=== PATIENT | male | born 1970 | race Caucasian/White ===

== ENCOUNTER 2020-05-28 16:05 | Outpatient (REF) | payer OTHER, SELFPAY ==
[2020-05-28 18:31] LABS: Alanine Aminotransferase 21 U/L (0-40); Albumin Level 4.5 g/dL (3.5-5.0); Alkaline Phosphatase 93 U/L (39-117); Aspartate Amino Transferase 21 U/L (5-37); Bilirubin Direct 0.2 mg/dL (0.0-0.5); Bilirubin Total 0.4 mg/dL (0.0-1.0); Total Protein 7.3 g/dL (6.5-8.0)
== END 2020-05-28 16:06 | disposition home or self-care (01) ==
LOC: HO.LAB 16:05
PROVIDERS: PCP Internal Medicine; Visit Provider Nurse Practitioner
DX: K22.4 Dyskinesia of esophagus (principal); K22.70 Barrett's esophagus without dysplasia; K21.9 Gastro-esophageal reflux disease without esophagitis; K75.81 Nonalcoholic steatohepatitis (NASH)
CPT/HCPCS: 36415; 80076; 82105

== ENCOUNTER 2020-07-22 17:24 | Outpatient (REF) | payer OTHER, SELFPAY ==
--- NOTE | ~2020-07-22 | XR_ITS ---
EXAMINATION: XR LUMBOSACRAL SPINE CLINICAL INFORMATION: Low back pain. COMPARISON: None. TECHNIQUE: 3 views of the lumbosacral spine. FINDINGS: The vertebral bodies and posterior elements are normal. The disc spaces are preserved and the vertebral alignment is normal. The paraspinal soft tissues are normal. XR/XR lumbar spine 2-3V IMPRESSION: Unremarkable examination.
== END 2020-07-22 17:25 | disposition home or self-care (01) ==
LOC: HO.XRAY 17:24
PROVIDERS: PCP Internal Medicine; Visit Provider Physician Assistant
DX: M54.5 Low back pain (principal)
CPT/HCPCS: 72100

== ENCOUNTER → 2020-08-08 15:30 | Outpatient (BNV) | payer BC, OTHER, SELFPAY | PROVIDERS: PCP Internal Medicine; Visit Provider Internal Medicine Medical Oncology | DX: I82.402 Acute embolism and thrombosis of unspecified deep veins of left lower extremity (principal) | CPT/HCPCS: 99212; 99213; 99214 ==

== ENCOUNTER 2020-10-03 13:59 | Outpatient (REF) | payer OTHER, SELFPAY ==
[2020-10-03 14:30] LABS: Estimated Average Glucose 111 mg/dL; Hemoglobin A1c % 5.5 %
[2020-10-03 14:49] LABS: C Reactive Protein 0.32 mg/dL (< or = 0.50); Cholesterol 198 mg/dL; HDL Cholesterol 54 mg/dL; LDL Cholesterol Calculated 124 mg/dl; Triglycerides 103 mg/dL
[2020-10-03 15:13] LABS: Free T4 (Free Thyroxine) 0.93 ng/dL (0.71-1.85); Prostate Specific Antigen Scr 0.98 ng/mL (<0.05-4.0); Thyroid Stimulating Hormone 0.49 uIU/mL (0.32-4.0); Vitamin D 25-OH Total 18.4 ng/mL (>30)
[2020-10-03 15:21] LABS: Folate 7.3 ng/mL (> or = 4.0); Vitamin B12 391 pg/mL (200-900)
[2020-10-06 13:02] LABS: Insulin Level Total 8.4 uIU/mL
== END 2020-10-03 14:00 | disposition home or self-care (01) ==
LOC: HO.LAB 13:59
PROVIDERS: PCP Internal Medicine; Visit Provider Internal Medicine
DX: Z12.5 Encounter for screening for malignant neoplasm of prostate (principal); K22.70 Barrett's esophagus without dysplasia; G47.33 Obstructive sleep apnea (adult) (pediatric); R45.86 Emotional lability; E78.00 Pure hypercholesterolemia, unspecified; K75.81 Nonalcoholic steatohepatitis (NASH)
CPT/HCPCS: 36415; 80061; 82306; 82607; 82746; 83036; 83525; 84153; 84439; 84443; 86140

== ENCOUNTER 2020-10-07 14:00 | Outpatient (RCR) | payer OTHER, SELFPAY ==
--- NOTE | 2020-09-04 09:18 | MHC.PT.EP ---
[facility] [place] Office [place] Office [place] Office [address] Jennifer Pillai [address] [phone] F: [phone] F: [phone] F: [phone] F: [phone] Physical Therapy Plan of Care Date of Evaluation: Date of Surgery: Diagnosis: Unspecified thoracic pain. 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 Pt is deemed an appropriate candidate to receive skilled PT services to address his physical impairments in order to improve his tolerance for restful sleep. Frequency and Duration: The patient will be seen 1 x / wk x 6 wks. Short Term Goals: Initiate HEP [facility]dc Goals: I with HEP. Pt will be I with office ergonomics for sitting at desk long periods. Pt will report sleep no longer affected by back pain. Treatment Plan: Modalities to reduce pain, spasms and effusion. Manual therapy to restore motion and function. Therapeutic exercise to improve strength and flexibility. Neuromuscular re-education for posture and balance. Therapeutic activities to return to functional activities of daily living. Electronically signed by: Oleg Phillips PT. Please sign and return to therapist. Thank you for your referral.
--- NOTE | 2021-02-09 08:35 | MHC.PT.OD ---
[facility] [place] Office [place] Office [place] Office [address] Iesha Pillai [address] [phone] F: [phone] F: [phone] F: [phone] F: [phone] Physical Therapy Daily Note Diagnosis: Unspecified thoracic pain. Date of Surgery: Date of Evaluation: 08/29/20 Date of Treatment: 10/07/20 Treatments to Date: 2 Cancellations to Date: No Shows to Date: Authorized Visits: Insurance End Date: Precautions/ Contraindications: Subjective: Pt reports he is now on gabapentin for his restless leg, reports 2-4 hrs of sleep, trialed HEP though a little and inconsistently. Reports his pain is the same 1-2/10 which is constant and does not affect him when preaooupied. Pain Score and Location: 2 Objective Flowsheet: Tests & Measures Exercises LTRs x 15 ea. (NOT TODAY) Open books 15 ea. (NOT TODAY) Office ergonomics H.O. issued and discussed. 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 (reviewed) Cat/ camel in quadruped x 15 reps. Ileana pose 3 ways x 10 sec ea x 5 reps.ea. SH rows/ extensions/ B ER x 10 x 3 ea. Blue. Seated T spine executive stretch x 15 reps x 3 sec ea. Prone alt hip extensions x 10 x 3. T 5-L1 P-A mobs G III-IV (hypo moble segments noted T 6-8). STM and TrP for B longissimus, B QLs, serratus posterior. MFR for B longissimus and spinal fascia. Modalities Assessment: Amadou trialed a couple of visits for his issue and terminated his program d/t lack of improvement; From last attended: Pt performed all exercises without pain. Pt reports high co-pay and inability to determine if PT will resolve his issue limit him from committing to PT. Reports limited time for HEP and is uncertain he will comply and hasn't tried his initial posture changes or exercises; Pt ed on PT recommendation and agreed to trial 3 visits 2 weeks apart save for 1 visit NW. PT Plan: L/ T spine mobility ergonomics. monitor constant pain Sx for flag Sx. insomnia. lumbar stab. 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 Pt will be I with office ergonomics for sitting at desk long periods. Pt will report sleep no longer affected by back pain. Electronically signed by:
== END 2021-06-17 09:51 | disposition home or self-care (01) ==
LOC: HO.PTCHIC 14:00
PROVIDERS: PCP Internal Medicine; Visit Provider Physician Assistant
DX: M51.9 Unspecified thoracic, thoracolumbar and lumbosacral intervertebral disc disorder (principal); M54.5 Low back pain
CPT/HCPCS: 97110; 97140; 97161

== ENCOUNTER → 2020-12-01 14:04 | Outpatient (BNVA) | payer OTHER, SELFPAY | PROVIDERS: PCP Internal Medicine; Referring Provider Internal Medicine; Visit Provider Nurse Practitioner | DX: K21.9 Gastro-esophageal reflux disease without esophagitis (principal); K22.4 Dyskinesia of esophagus; K75.81 Nonalcoholic steatohepatitis (NASH); K22.70 Barrett's esophagus without dysplasia | CPT/HCPCS: 99212 ==

== ENCOUNTER 2020-12-08 13:21 | Outpatient (REF) | payer OTHER, SELFPAY ==
--- NOTE | ~2020-12-08 | US_ITS ---
EXAMINATION: US ABDOMEN LIMITED CLINICAL INFORMATION: Nonalcoholic steatohepatitis (WEINSTEIN). COMPARISON: Abdomen ultrasound 11/13/2019 TECHNIQUE: Real-time imaging of the right upper quadrant abdominal viscera. FINDINGS: PANCREAS: The head and body appear unremarkable. The tail is obscured by overlying bowel gas. LIVER: The liver is normal in size. The liver contour is normal. There is diffusely increased echogenicity present consistent with fatty infiltration. No focal hepatic lesion. There is no intrahepatic biliary duct dilatation seen. GALLBLADDER: Normal. The gallbladder is physiologically distended without evidence of stones, sludge, polyps, wall thickening or pericholecystic fluid. COMMON BILE DUCT: Normal in caliber measuring 0.3 cm in diameter. RIGHT KIDNEY: Normal. No hydronephrosis. No renal calculi or focal parenchymal lesions. The kidney measures 11.9 cm in maximum dimension. FREE FLUID: None. US/US abdomen limited IMPRESSION: Diffusely increased echogenicity of the liver without focal mass. Findings consistent with fatty infiltration.
[2020-12-08 15:11] LABS: Alanine Aminotransferase 14 U/L (0-40); Albumin Level 4.4 g/dL (3.5-5.0); Alkaline Phosphatase 94 U/L (39-117); Aspartate Amino Transferase 18 U/L (5-37); Bilirubin Direct 0.2 mg/dL (0.0-0.5); Bilirubin Total 0.4 mg/dL (0.0-1.0); Total Protein 7.1 g/dL (6.5-8.0)
[2020-12-09 10:26] LABS: Alpha Fetoprotein 2.3 ng/mL (<6.1)
== END 2020-12-08 13:22 | disposition home or self-care (01) ==
LOC: HO.US 13:21
PROVIDERS: PCP Internal Medicine; Visit Provider Nurse Practitioner
DX: K75.81 Nonalcoholic steatohepatitis (NASH) (principal)
CPT/HCPCS: 36415; 76705; 80076; 82105

== ENCOUNTER 2021-01-06 06:42 | Day surgery (SDC) | payer OTHER, SELFPAY ==
[2020-12-31 10:16] VITALS: BMI 34.5
--- NOTE | 2021-01-05 12:15 | HO.ANESPROP2 ---
Documented by User: Linette Redd NP 01/05/21 12:17 HPI - Anesthesia Eval Consult details Narrative: 50yo M for Upper Endoscopy and Colonoscopy Xarelto for DVT PMFSH Active Problems Active Problems: All Active Problems (Updated 12/31/20 @ 09:59 by Olamide Mccormack, RN) Mood changes (Acute) Pate's esophagus determined by biopsy (Acute) Esophageal spasm (Acute) WEINSTEIN (nonalcoholic steatohepatitis) (Acute) Lumbar spine pain (Acute) Left leg DVT (Acute) Impaired glucose tolerance (Acute) Hypercholesterolemia (Acute) Generalized anxiety disorder (Acute) Marijuana use (Acute) Obesity (BMI 30-39.9) (Acute) Insomnia (Acute) GERD (gastroesophageal reflux disease) (Acute) Obstructive sleep apnea (Acute) Past Medical History Medical History DVT (deep venous thrombosis) Erectile dysfunction Generalized anxiety disorder GERD (gastroesophageal reflux disease) Hypercholesterolemia Hypogonadism Impaired glucose tolerance Insomnia Marijuana use Obesity (BMI 30-39.9) Obstructive sleep apnea Peptic ulcer disease Restless leg syndrome Family History Family History Father Heart attack Diabetes Mother Thyroid condition Surgical History Surgical History Hx of endoscopy Social History Social History Household Members: Spouse Alcohol intake: current Alcohol intake frequency: holidays/special occasions only Patient Tobacco Use Status: Former Tobacco user Second Hand Smoke Exposure: No Use of substances other than those prescribed or required for medical reasons: Yes Substance Use Type: Marijuana Advance Directives Information Provided: Yes (informational brochure mailed) Advance Directives on File: No Meds Allergies Allergy/AdvReac Type Severity Reaction Status Date / Time Penicillins [PENICILLINS] Allergy Intermediate HIVES Verified 01/06/21 06:55 Home Medications Medication Instructions Recorded Confirmed Last Taken Type bupropion HCl 300 mg 24 hr tablet, 300 mg PO BEDTIME 05/28/20 08/08/20 Unknown History extended release bupropion HCl 300 mg 24 hr tablet, 1 tab PO QAM 08/08/20 08/08/20 Unknown History extended release (Wellbutrin XL) sertraline 100 mg tablet (Zoloft) mg PO 08/08/20 08/08/20 Unknown History sertraline 25 mg tablet 25 mg PO DAILY 08/08/20 08/08/20 Unknown History ergocalciferol (vitamin D2) 1,250 1,250 mcg PO QWEEK 12/01/20 Unknown History mcg (50,000 unit) capsule Exam Exam Date and Time: January 05, 2021 1215 Height,Weight and Vital Signs: Height 5 ft 10 in Weight 109.316 kg Pertinent Lab Results Pertinent Lab Results: Laboratory Tests 08/08/20 08/08/20 15:47 15:47 WBC 7.6 Hgb 14.2 Hct 43.3 Plt Count 222 Sodium 139 Potassium 4.6 Chloride 105 Carbon Dioxide 29 BUN 15 Creatinine 0.90 Assessment and Plan Assessment Anesthesia Assessment: Chart Reviewed Documented by User: Jabier Hansen MD 01/06/21 09:18 [facility] Past Medical History Medical History DVT (deep venous thrombosis) Erectile dysfunction Generalized anxiety disorder GERD (gastroesophageal reflux disease) Hypercholesterolemia Hypogonadism Impaired glucose tolerance Insomnia Marijuana use Obesity (BMI 30-39.9) Obstructive sleep apnea Peptic ulcer disease Restless leg syndrome Family History Family History Father Heart attack Diabetes Mother Thyroid condition Family history of problems with anesthesia: No Surgical History Surgical History Hx of endoscopy History of Problems with Anesthesia: No Social History Social History Household Members: Spouse Alcohol intake: current Alcohol intake frequency: holidays/special occasions only Patient Tobacco Use Status: Former Tobacco user Second Hand Smoke Exposure: No Use of substances other than those prescribed or required for medical reasons: Yes Substance Use Type: Marijuana Advance Directives Information Provided: Yes (informational brochure mailed) Advance Directives on File: No Meds Allergies Allergy/AdvReac Type Severity Reaction Status Date / Time Penicillins [PENICILLINS] Allergy Intermediate HIVES Verified 01/06/21 06:55 Home Medications Medication Instructions Recorded Confirmed Last Taken Type bupropion HCl 300 mg 24 hr tablet, 300 mg PO BEDTIME 05/28/20 08/08/20 Unknown History extended release bupropion HCl 300 mg 24 hr tablet, 1 tab PO QAM 08/08/20 08/08/20 Unknown History extended release (Wellbutrin XL) sertraline 100 mg tablet (Zoloft) mg PO 08/08/20 08/08/20 Unknown History sertraline 25 mg tablet 25 mg PO DAILY 08/08/20 08/08/20 Unknown History ergocalciferol (vitamin D2) 1,250 1,250 mcg PO QWEEK 12/01/20 Unknown History mcg (50,000 unit) capsule Exam Airway Mallampati Class: III TM Dist: >3cm Neck ROM: Full Loose/Missing/Broken Teeth: No Assessment and Plan Assessment Anesthesia Assessment: Anesthesia Plan Discussed Final Anesthetic Review Family History of Problems with Anesthesia: No History of Problems with Anesthesia: No NPO: Yes ASA Class: III Final Preanesthetic Review: No Changes in Pt Med Stat, Meds/Allgs Chart Reviewed, Consent Obtained/Reviewed and Anes Risks/Benef Reviewed Patient Risk: Intermediate Procedure Risk: Low Anesthetic Plan Anesthetic Plan: MAC: Disposition: Standard PACU
[2021-01-06 07:19] VITALS: BP 126/74; PULSE 48; RESP 20; TEMP 36.4; O2SAT 97
[2021-01-06] MEDS: Lactated Ringers 1,000 ML 100 ML IVCONT (07:22)
--- NOTE | 2021-01-06 07:35 | P.HPSUR_ITS ---
Pre-Procedural Eval Section A Date of Service: 01/06/21 The patient is an INPATIENT: No The History & Physical has been completed within 30 days and I have reviewed it.: No Section B Chief Complaint: Screening, WEINSTEIN Details of Present Illness: Colon cancer screening, Pate's esophagus Relevant Family History (Specify if Yes): No Relevant Social History: Tobacco Use (past smoker) Present Medications: see Short Stay Collaborative assessment Medical History: Significant History (Erectile dysfunction Generalized anxiety disorder GERD (gastroesophageal reflux disease) Hypercholesterolemia Hypogonadism Impaired glucose tolerance Insomnia Marijuana use Obesity (BMI 30- 39.9) Obstructive sleep apnea Peptic ulcer disease Restless leg syndrome) History of Previous Operations: Relevant previous surgery/procedure and date(s) (History of endoscopy) Allergies: Allergies Allergy/AdvReac Type Severity Reaction Status Date / Time Penicillins [PENICILLINS] Allergy Intermediate HIVES Verified 01/06/21 06:55 Review of Systems Sugical H&P ROS: Negative: Constitution, Cardiovascular, Respiratory and Gastrointestinal Exam Surgical H&P Exam: Normal: Heart, Normal: Lungs, Normal: Extremities and Normal: Abdomen Plan Diagnosis/Plan: Unchanged I have reviewed the history and physical and performed a pertinent physical examination on my patient. No changes have occurred unless specified.
--- NOTE | 2021-01-06 07:36 | P.BOP_ITS ---
Brief Operative Note Date of Service: 01/06/21 Pre-op diagnosis: Colon cancer screening, FU of Guzman's, GERD Post-op diagnosis: other (GERD, Guzman's esophagus, gastric polyps, colon polyps, diverticulosis, hemorrhoids) Procedure: FLEXIBLE TRANSORAL UPPER GASTROINTESTINAL ENDOSCOPY WITH BIOPSIES AND COLONOSCOPY TILL CECUM WITH BIOPSIES AND SNARE POLYPECTOMY UPPER ENDOSCOPY Consent: Indications for the procedure and potential complications of bleeding, perforation, reaction to medications and missed diagnosis were discussed with the patient and informed consent was obtained. Instrument: Olympus GIF H 190 mid size upper endoscope Monitoring: Vital signs and clinical assessment, continuous EKG monitoring, Pulse oximetry, Carbon Dioxide monitoring and blood pressure monitoring were done throughout the procedure. Procedure: The patient was placed in the left lateral decubitis position and pre-procedure medications were administered and a bite block was placed. The endoscope was inserted into the mouth and advanced under direct vision to the third part of duodenum. A careful inspection was made as the upper endoscope was withdrawn including a retroflexed examination of the proximal stomach; Findings and interventions are described below. Findings: Larynx: Normal Esophagus: GE junction at 40 cms. Two 1 cms tongues of Guzman's as noted on previous EGD - biopsies were obtained. No esophagitis. Stomach: A few 5-10 mm benign appearing polyps in the gastric fundus and body - biopsied. Mild gastric erythema - biopsies were obtained. Grade 2 flap valve on retroflexed examination of the cardia. Duodenum: Normal bulb and descending duodenum Intervention: Biopsies as noted above COLONOSCOPY PROCEDURE NOTE Consent: Indications for the procedure and potential complications of bleeding, perforation, reaction to medications and missed diagnosis were discussed with the patient and informed consent was obtained. Instrument: Olympus PCF H 190 L variable stiffness pediatric colonoscope Monitoring: Vital signs and clinical assessment, intermittent blood pressure monitoring, continuous EKG monitoring, Pulse oximetry and Carbon Dioxide monitoring were done throughout the procedure. Colon withdrawl time was 21 minutes. Procedure: The patient was placed in the left lateral decubitis position and pre-procedure medications were administered. After a digital rectal examination of the ano-rectum, the video colonoscope was inserted into the rectum and advanced through the colon to the cecum. The colonoscope was slowly withdrawn in a retrograde panoramic fashion and the colon mucosa was carefully examined including a retroflexed view of the rectum. Findings and interventions are described below. Procedure Difficulty: : Without difficulty Findings: Terminal Ileum: Not evaluated Cecum: Normal Ascending Colon: A 6-7 mm sessile polyp removed with a cold bx. Two 8-10 mm sessile polyps removed with a cold snare. Transverse Colon: Normal Descending Colon: Moderate diverticulosis Sigmoid Colon: Moderate diverticulosis Rectum: Normal Ano-rectum: Moderate internal hemorrhoids Colon preparation: Good Impression and Post Procedure Diagnosis: Endoscopy Findings: ESOPHAGUS: GE junction at 40 cms. Two 1 cms tongues of Guzman's as noted on previous EGD - biopsies were obtained. STOMACH: A few 5-10 mm benign appearing polyps in the gastric fundus and body - biopsied. Mild gastric erythema - biopsies were obtained. Colonoscopy Findings: Three small to medium sized polyps removed Moderate diverticulosis seen in the left colon Moderate hemorrhoids on retroflexed exam. Plan: Await pathology results Patient has an appointment on 01/19/21 in the GI Clinic with Audrey Anguiano NP . Repeat Colonoscopy interval based on path results - in 3 years if polyps are a denomatous and 10 years if polyps are hyperplastic. Repeat EGD in 3 -4 yrs if no dysplasia on esophageal biopsies Above findings were reviewed with the patient and colon polyps and diverticulosis handouts were given in the discharge area Surgeon: Rl Hernandez MD Anesthesia: MAC (Carlota Palma CRNA) Was an Supervisor [employer] used for this Procedure?: No Estimated blood loss (mL): 0 Pathology: other ( A. GASTRIC POLYPS B. DISTAL ESOPHAGUS BX'S F/U TO GUZMAN'S C. ASCENDING COLON POLYPS) Condition: stable Disposition: PACU
--- NOTE | 2021-01-06 07:57 | W.PM.OPN ---
Operative Note Operative Note Date of Service: 01/06/21 Narrative: Pre-op diagnosis:?Colon cancer screening, FU of Guzman's, GERD Post-op diagnosis:?other (GERD, Guzman's esophagus, gastric polyps, colon polyps, diverticulosis, hemorrhoids) Procedure:? FLEXIBLE TRANSORAL UPPER GASTROINTESTINAL ENDOSCOPY WITH BIOPSIES AND COLONOSCOPY TILL CECUM WITH BIOPSIES AND SNARE POLYPECTOMY UPPER ENDOSCOPY Consent:?Indications for the procedure and potential complications of bleeding, perforation, reaction to medications and missed diagnosis were discussed with the patient and informed consent was obtained. Instrument:?Olympus GIF H 190 mid size upper endoscope Monitoring: Vital signs and clinical assessment, continuous EKG monitoring, Pulse oximetry, Carbon Dioxide monitoring and blood pressure monitoring were done throughout the procedure. Procedure:?The patient was placed in the left lateral decubitis position and pre-procedure medications were administered and a bite block was placed. The endoscope was inserted into the mouth and advanced under direct vision to the third part of duodenum. A careful inspection was made as the upper endoscope was withdrawn including a retroflexed examination of the proximal stomach; Findings and interventions are described below. Findings: Larynx:? Normal Esophagus:?GE junction at 40 cms.? Two 1 cms tongues of Guzman's as noted on previous EGD - biopsies were obtained. ? No esophagitis. Stomach:?A few 5-10 mm benign appearing polyps in the gastric fundus and body - biopsied. Mild gastric erythema - biopsies were obtained. Grade 2 flap valve on retroflexed examination of the cardia. Duodenum:?Normal bulb and descending duodenum Intervention:?Biopsies as noted above COLONOSCOPY PROCEDURE NOTE Consent:?Indications for the procedure and potential complications of bleeding, perforation, reaction to medications and missed diagnosis were discussed with the patient and informed consent was obtained. Instrument:?Olympus PCF H 190 L variable stiffness pediatric colonoscope Monitoring:?Vital signs and clinical assessment, intermittent blood pressure monitoring, continuous EKG monitoring, Pulse oximetry and Carbon Dioxide monitoring were done throughout the procedure. Colon withdrawl time was 21 minutes. Procedure:?The patient was placed in the left lateral decubitis position and pre-procedure medications were administered. After a digital rectal examination of the ano-rectum, the video colonoscope was inserted into the rectum and advanced through the colon to the cecum. The colonoscope was slowly withdrawn in a retrograde panoramic fashion and the colon mucosa was carefully examined including a retroflexed view of the rectum. Findings and interventions are described below. Procedure Difficulty:?: Without difficulty Findings: Terminal Ileum: Not evaluated Cecum:? Normal Ascending Colon:??A 6-7 mm sessile polyp removed with a cold bx.? Two 8-10 mm sessile polyps removed with a cold snare. Transverse Colon:??Normal Descending Colon:? Moderate diverticulosis Sigmoid Colon:??Moderate diverticulosis Rectum:??Normal Ano-rectum:??Moderate internal hemorrhoids Colon preparation:? Good? Impression and Post Procedure Diagnosis: Endoscopy Findings: ESOPHAGUS:? GE junction at 40 cms.? Two 1 cms tongues of Guzman's as noted on previous EGD - biopsies were obtained. STOMACH: A few 5-10 mm benign appearing polyps in the gastric fundus and body - biopsied. Mild gastric erythema - biopsies were obtained. Colonoscopy Findings: Three small to medium sized polyps removed Moderate diverticulosis seen in the left colon Moderate hemorrhoids on retroflexed exam. Plan: Await pathology results Patient has an appointment on 01/19/21 in the GI Clinic with? Audrey Anguiano NP? . Repeat Colonoscopy interval based on path results - in 3 years if polyps are adenomatous and 10 years if polyps are hyperplastic. Repeat EGD in 3 -4 yrs if no dysplasia on esophageal biopsies Above findings were reviewed with the patient and colon polyps and diverticulosis handouts were given in the discharge area Surgeon:?Rl Hernandez MD Anesthesia:?MAC (Carlota Palma CRNA) Was an Liquor Runner used for this Procedure?:?No Estimated blood loss (mL):?0 Pathology:?other ( A. GASTRIC POLYPS? B. DISTAL ESOPHAGUS BX'S F/U TO GUZMAN'S? C. ASCENDING COLON POLYPS) Condition:?stable Disposition:?PACU
[2021-01-06 08:50] VITALS: BP 135/79; PULSE 86; RESP 16; TEMP 36.8; O2SAT 97
[2021-01-06 09:05] VITALS: BP 137/79; PULSE 86; RESP 18; TEMP 36.8; O2SAT 99
== END 2021-01-06 09:32 | disposition home or self-care (01) ==
PROVIDERS: PCP Internal Medicine; Visit Provider Internal Medicine Gastroenterology
PROC: (CPT 45385; principal; 2021-01-06 07:30)
DX: Z12.11 Encounter for screening for malignant neoplasm of colon (principal); D12.2 Benign neoplasm of ascending colon; K57.30 Diverticulosis of large intestine without perforation or abscess without bleeding; K64.8 Other hemorrhoids; K21.9 Gastro-esophageal reflux disease without esophagitis; K22.4 Dyskinesia of esophagus; K22.70 Barrett's esophagus without dysplasia; K75.81 Nonalcoholic steatohepatitis (NASH); K31.7 Polyp of stomach and duodenum; R73.02 Impaired glucose tolerance (oral); G47.33 Obstructive sleep apnea (adult) (pediatric); Z79.899 Other long term (current) drug therapy; Z88.0 Allergy status to penicillin; F12.90 Cannabis use, unspecified, uncomplicated; Z87.891 Personal history of nicotine dependence
CPT/HCPCS: 45385; 45380; 43239; 88305; 88342; J3010

== ENCOUNTER 2021-03-12 13:13 | Outpatient (REF) | payer OTHER, SELFPAY ==
--- NOTE | ~2021-03-12 | US_ITS ---
EXAMINATION: US VENOUS ULTRASOUND WITH DOPPLER LOWER EXTREMITY, BILATERAL CLINICAL INFORMATION: Follow-up left leg DVT COMPARISON: Previous exams most recent May 2019 TECHNIQUE: Ultrasound of the deep veins is performed from the hip to the calf with compression sonography and color and pulse Doppler assessment. Spectral analysis with color-flow imaging is performed. FINDINGS: RIGHT: There is normal venous compression and respiratory variation and augmented flow. The visualized common femoral vein, superficial femoral vein, profunda femoral vein, popliteal vein, and the trifurcation region shows no evidence of deep venous thrombosis. There is no significant popliteal fossa cyst. There is right groin lymph node. LEFT: There left common femoral, proximal and mid superficial femoral vein are patent. There is hypoechoic material seen against the wall of the left distal superficial femoral and popliteal veins suggestive of changes from old DVT. This is similar to recent exam May 2019. The left posterior tibial and peroneal veins are patent. There is no Plascencia's cyst. There is a small left groin lymph node. US/US venous duplex LE BI IMPRESSION: No DVT demonstrated in the right lower extremity. Probable chronic changes of DVT seen in the distal left superficial femoral and popliteal veins similar to May 2019. No evidence of acute left leg DVT.
== END 2021-03-12 13:14 | disposition home or self-care (01) ==
LOC: HO.HMGCX 13:13
PROVIDERS: Visit Provider Internal Medicine Medical Oncology
DX: I82.409 Acute embolism and thrombosis of unspecified deep veins of unspecified lower extremity (principal)
CPT/HCPCS: 93970

== ENCOUNTER 2021-03-24 12:46 | Outpatient (REF) | payer OTHER, SELFPAY ==
[2021-03-24 14:14] LABS: Estimated Average Glucose 117 mg/dL; Hemoglobin A1c % 5.7 %
[2021-03-24 14:23] LABS: Cholesterol 207 mg/dL; HDL Cholesterol 51 mg/dL; LDL Cholesterol Calculated 140 mg/dl; Triglycerides 84 mg/dL
== END 2021-03-24 12:47 | disposition home or self-care (01) ==
LOC: HO.HMGCLDS 12:46
PROVIDERS: PCP Internal Medicine; Visit Provider Nurse Practitioner Family
DX: Z00.00 Encounter for general adult medical examination without abnormal findings (principal); R73.02 Impaired glucose tolerance (oral)
CPT/HCPCS: 36415; 80061; 83036

== ENCOUNTER 2021-04-02 14:26 | Outpatient (REF) | payer OTHER, SELFPAY ==
[2021-04-02 16:47] LABS: Anion Gap 10 (12-20); Blood Urea Nitrogen 16 mg/dL (9-16); Calcium 9.1 mg/dL (8.4-10.2); Carbon Dioxide 32 mmol/L (22-29); Chloride 100 mmol/L (96-108); Estimated Glomerular Filt Rate > 60; Glucose Random 89 mg/dL (60-115); Potassium 4.3 mmol/L (3.3-5.1); Sodium 138 mmol/L (135-145)
== END 2021-04-02 14:27 | disposition home or self-care (01) ==
LOC: HO.HMGCLDS 14:26
PROVIDERS: Visit Provider Internal Medicine
DX: K22.70 Barrett's esophagus without dysplasia (principal)
CPT/HCPCS: 36415; 80048

== ENCOUNTER → 2021-06-04 12:07 | Outpatient (BNVA) | payer OTHER, SELFPAY | PROVIDERS: PCP Internal Medicine; Referring Provider Internal Medicine; Visit Provider Internal Medicine Gastroenterology | DX: K22.70 Barrett's esophagus without dysplasia (principal); K75.81 Nonalcoholic steatohepatitis (NASH); K21.9 Gastro-esophageal reflux disease without esophagitis; E66.9 Obesity, unspecified; D12.6 Benign neoplasm of colon, unspecified; Z68.34 Body mass index [BMI] 34.0-34.9, adult; Z79.899 Other long term (current) drug therapy | CPT/HCPCS: 99212 ==

== ENCOUNTER 2021-07-01 19:06 | Outpatient (REF) | payer OTHER, SELFPAY | END 2021-07-01 19:07 | disposition home or self-care (01) | LOC: HO.LNP 19:06 | PROVIDERS: Visit Provider Nurse Practitioner Family | DX: Z13.9 Encounter for screening, unspecified (principal) | CPT/HCPCS: 87086 ==

== ENCOUNTER 2021-07-06 13:54 | Outpatient (REF) | payer OTHER, SELFPAY ==
[2021-07-06 16:49] LABS: Anion Gap 10 (12-20); Blood Urea Nitrogen 19 mg/dL (9-16); Carbon Dioxide 27 mmol/L (22-29); Chloride 102 mmol/L (96-108); Estimated Glomerular Filt Rate > 60; Glucose Random 102 mg/dL (60-115); Potassium 4.6 mmol/L (3.3-5.1); Sodium 134 mmol/L (135-145)
== END 2021-07-06 13:55 | disposition home or self-care (01) ==
LOC: HO.HMGCLDS 13:54
PROVIDERS: PCP Internal Medicine; Visit Provider Nurse Practitioner Family
DX: R82.998 Other abnormal findings in urine (principal)
CPT/HCPCS: 36415; 80048

== ENCOUNTER 2021-10-30 14:29 | Outpatient (REF) | payer OTHER, SELFPAY ==
[2021-10-30 16:41] LABS: Appearance Urine Clear; Color Urine Yellow; Glucose Urine UA Negative (Negative); Leukocyte Esterase Urine Trace (Negative); Nitrite Urine Negative (Negative); PH 5.5 (5.0-9.0); UMIC TRIGGER UA YES; Urine Blood Negative (Negative); Urine Ketones Negative (Negative); Urine Protein Negative (Neg-Trace)
[2021-10-30 16:46] LABS: Bacteria Urine None Seen (None Seen); Hyaline Casts Urine 0-2 /LPF (0-2); RBC Urine 0-2 /HPF (0-2); Squamous Epithelial Cell Urine 0-2 /HPF (0-2); WBC Urine 0-5 /HPF (0-5)
[2021-10-30 16:48] LABS: Alanine Aminotransferase 22 U/L (0-40); Albumin Level 4.2 g/dL (3.5-5.0); Alkaline Phosphatase 72 U/L (39-117); Anion Gap 14 (12-20); Aspartate Amino Transferase 22 U/L (5-37); Bilirubin Total 0.3 mg/dL (0.0-1.0); Blood Urea Nitrogen 18 mg/dL (9-16); Carbon Dioxide 26 mmol/L (22-29); Chloride 104 mmol/L (96-108); Estimated Glomerular Filt Rate > 60; Glucose Random 96 mg/dL (60-115); Potassium 5.3 mmol/L (3.3-5.1); Sodium 139 mmol/L (135-145); Total Protein 6.6 g/dL (6.5-8.0)
[2021-10-30 17:09] LABS: Thyroid Stimulating Hormone 0.29 uIU/mL (0.32-4.0)
== END 2021-10-30 14:30 | disposition home or self-care (01) ==
LOC: HO.HMGCLDS 14:29
PROVIDERS: Visit Provider Student in an Organized Health Care Education/Training Program
DX: G47.21 Circadian rhythm sleep disorder, delayed sleep phase type (principal)
CPT/HCPCS: 36415; 80053; 81001; 84443

== ENCOUNTER 2021-11-26 13:45 | Outpatient (REF) | payer OTHER, SELFPAY ==
[2021-11-26 18:06] LABS: TSH reflex Free T4 0.78 uIU/mL (0.32-4.0)
== END 2021-11-26 13:46 | disposition home or self-care (01) ==
LOC: HO.HMGCLDS 13:45
PROVIDERS: Visit Provider Student in an Organized Health Care Education/Training Program
DX: G47.21 Circadian rhythm sleep disorder, delayed sleep phase type (principal)
CPT/HCPCS: 36415; 84443

== ENCOUNTER 2021-12-04 11:12 | Outpatient (REF) | payer OTHER, SELFPAY ==
[2021-12-04 14:48] LABS: Free T4 (Free Thyroxine) 1.02 ng/dL (0.71-1.85)
== END 2021-12-04 11:13 | disposition home or self-care (01) ==
LOC: HO.HMGCLDS 11:12
PROVIDERS: PCP Internal Medicine; Visit Provider Student in an Organized Health Care Education/Training Program
DX: G47.21 Circadian rhythm sleep disorder, delayed sleep phase type (principal)
CPT/HCPCS: 36415; 84439; 84443

== ENCOUNTER 2021-12-17 12:19 | Outpatient (REF) | payer OTHER, SELFPAY ==
[2021-12-17 14:09] LABS: MANUAL DIFF FLAG NO
[2021-12-17 14:18] LABS: Basophils Absolute Auto 0.1 X10*3/uL (0.0-0.2); Basophils Percent Auto 0.7 % (0-2); Eosinophils Absolute Auto 0.3 X10*3/uL (0.0-0.4); Eosinophils Percent Auto 3.1 % (0-4); Hematocrit 46.8 % (42.0-52.0); Hemoglobin 15.9 g/dl (14.0-18.0); Imm Gran Abs Auto 0.02 X10*3/uL (0.00-0.03); Imm Gran Pct Auto 0.2 % (0.0-0.4); Lymphocytes Absolute Auto 1.9 X10*3/uL (1.2-4.9); Lymphocytes Percent Auto 23.7 % (20-40); Mean Corpuscular Hemoglobin 31.4 pg (27.0-33.0); Mean Corpuscular Volume 92.3 fL (80.0-98.0); Monocytes Absolute Auto 0.7 X10*3/uL (0.1-1.2); Neutrophils Absolute Auto 5.3 x10*3/uL (2.0-8.3); Neutrophils Percent Auto 64.3 % (45-73); Platelet Count 227 X10*3/uL (160-400); Red Blood Count 5.07 X10*6/uL (4.60-5.80); Red Cell Distribution Width 12.9 % (11.0-16.0); White Blood Count 8.2 X10*3/uL (4.8-10.8)
[2021-12-17 14:33] LABS: Alanine Aminotransferase 16 U/L (0-40); Albumin Level 4.7 g/dL (3.5-5.0); Alkaline Phosphatase 87 U/L (39-117); Anion Gap 17 (12-20); Aspartate Amino Transferase 18 U/L (5-37); Bilirubin Total 0.3 mg/dL (0.0-1.0); Blood Urea Nitrogen 20 mg/dL (9-16); Calcium 9.6 mg/dL (8.4-10.2); Carbon Dioxide 26 mmol/L (22-29); Chloride 102 mmol/L (96-108); Estimated Glomerular Filt Rate > 60; Glucose Random 115 mg/dL (60-115); Potassium 4.5 mmol/L (3.3-5.1); Sodium 140 mmol/L (135-145); Total Protein 7.5 g/dL (6.5-8.0)
[2021-12-17 14:57] LABS: Free T4 (Free Thyroxine) 0.94 ng/dL (0.71-1.85); Thyroid Stimulating Hormone 0.73 uIU/mL (0.32-4.0)
== END 2021-12-17 12:20 | disposition home or self-care (01) ==
LOC: HO.HMGCLDS 12:19
PROVIDERS: Visit Provider Student in an Organized Health Care Education/Training Program
DX: G47.21 Circadian rhythm sleep disorder, delayed sleep phase type (principal)
CPT/HCPCS: 36415; 80053; 84439; 84443; 85025

== ENCOUNTER 2022-02-09 13:08 | Outpatient (REF) | payer OTHER, SELFPAY ==
--- NOTE | ~2022-02-09 | US_ITS ---
EXAMINATION: US VENOUS ULTRASOUND WITH DOPPLER LOWER EXTREMITY, BILATERAL CLINICAL INFORMATION: Follow-up DVT COMPARISON: Previous exam most recent February 2021 TECHNIQUE: Ultrasound of the deep veins is performed from the hip to the calf with compression sonography and color and pulse Doppler assessment. Spectral analysis with color-flow imaging is performed. FINDINGS: RIGHT: There is normal venous compression and respiratory variation and augmented flow. The visualized common femoral vein, superficial femoral vein, profunda femoral vein, popliteal vein, and the trifurcation region shows no evidence of deep venous thrombosis. There is no significant popliteal fossa cyst. LEFT: The left common femoral superficial femoral, profunda and posterior tibial and peroneal veins in the calf are patent. Previously identified thrombus in the distal superficial femoral vein is no longer seen. There is still wall thickening, hypoechoic material against the wall and diminished compression of the left popliteal vein. This is similar to February 2021 exam and probably represents chronic changes from old DVT. No evidence of acute DVT is seen. No Plascencia's cyst. US/US venous duplex LE BI IMPRESSION: No DVT demonstrated in the right lower extremity. Probable chronic changes from old DVT in the popliteal vein similar to previous exam. Short-term follow-up exam in several days would be recommended if there is clinical suspicion of acute DVT.
== END 2022-02-09 13:09 | disposition home or self-care (01) ==
LOC: HO.US 13:08
PROVIDERS: Visit Provider Internal Medicine Medical Oncology
DX: Z86.718 Personal history of other venous thrombosis and embolism (principal)
CPT/HCPCS: 93970

== ENCOUNTER 2022-03-03 13:39 | Outpatient (REF) | payer BC, SELFPAY ==
[2022-03-03 16:42] LABS: MANUAL DIFF FLAG NO
[2022-03-03 16:46] LABS: Basophils Percent Auto 0.6 % (0-2); Eosinophils Absolute Auto 0.3 X10*3/uL (0.0-0.4); Eosinophils Percent Auto 4.1 % (0-4); Imm Gran Abs Auto 0.02 X10*3/uL (0.00-0.03); Imm Gran Pct Auto 0.3 % (0.0-0.4); Lymphocytes Percent Auto 29.8 % (20-40); Mean Corpuscular HGB Conc 33.3 g/dl (31.0-36.0); Mean Corpuscular Hemoglobin 31.4 pg (27.0-33.0); Mean Corpuscular Volume 94.3 fL (80.0-98.0); Mean Platelet Volume 9.9 fL (9.4-12.4); Monocytes Absolute Auto 0.7 X10*3/uL (0.1-1.2); Monocytes Percent Auto 10.2 % (2-11); Neutrophils Absolute Auto 3.7 x10*3/uL (2.0-8.3); Platelet Count 213 X10*3/uL (160-400); Red Blood Count 5.41 X10*6/uL (4.60-5.80); Red Cell Distribution Width 13.1 % (11.0-16.0); White Blood Count 6.6 X10*3/uL (4.8-10.8)
[2022-03-03 17:43] LABS: Prostate Specific Antigen 1.25 ng/mL (<0.05-4.0)
[2022-03-09 14:04] LABS: Testosterone, Total 374 ng/dL (250-1100)
== END 2022-03-03 13:40 | disposition home or self-care (01) ==
LOC: HO.HMGCLDS 13:39
PROVIDERS: PCP Internal Medicine; Visit Provider Urology
DX: Z12.5 Encounter for screening for malignant neoplasm of prostate (principal)
CPT/HCPCS: 36415; 84153; 84403; 85025

== ENCOUNTER 2022-03-15 14:50 | Outpatient (REF) | payer BC, SELFPAY ==
[2022-03-15 16:46] LABS: Hematocrit 49.8 % (42.0-52.0); Hemoglobin 16.5 g/dl (14.0-18.0); Mean Corpuscular HGB Conc 33.1 g/dl (31.0-36.0); Mean Corpuscular Hemoglobin 31.1 pg (27.0-33.0); Mean Corpuscular Volume 93.8 fL (80.0-98.0); Mean Platelet Volume 9.9 fL (9.4-12.4); Platelet Count 203 X10*3/uL (160-400); Red Blood Count 5.31 X10*6/uL (4.60-5.80); Red Cell Distribution Width 12.6 % (11.0-16.0); White Blood Count 4.6 X10*3/uL (4.8-10.8)
[2022-03-15 17:08] LABS: Alanine Aminotransferase 15 U/L (0-40); Albumin Level 4.3 g/dL (3.5-5.0); Alkaline Phosphatase 76 U/L (39-117); Anion Gap 11 (12-20); Aspartate Amino Transferase 20 U/L (5-37); Bilirubin Total 0.5 mg/dL (0.0-1.0); Blood Urea Nitrogen 13 mg/dL (9-16); Carbon Dioxide 30 mmol/L (22-29); Chloride 104 mmol/L (96-108); Estimated Glomerular Filt Rate 58; Glucose Random 105 mg/dL (60-115); Iron 77 mcg/dL (45-160); Percent Iron Saturation 29 % (15-50); Potassium 5.2 mmol/L (3.3-5.1); Sodium 140 mmol/L (135-145); Total Iron Binding Capacity 270 mcg/dL (228-428); Total Protein 7.1 g/dL (6.5-8.0); Unsaturated Iron Binding 193 ug/dL
[2022-03-15 17:17] LABS: Lithium 0.12 mmol/L (0.60-1.20)
[2022-03-15 17:27] LABS: Ferritin 197 ng/mL (20-250); Free T4 (Free Thyroxine) 1.12 ng/dL (0.71-1.85); Thyroid Stimulating Hormone 1.42 uIU/mL (0.32-4.0)
== END 2022-03-15 14:51 | disposition home or self-care (01) ==
LOC: HO.HMGCLDS 14:50
PROVIDERS: Visit Provider Student in an Organized Health Care Education/Training Program
DX: G47.21 Circadian rhythm sleep disorder, delayed sleep phase type (principal)
CPT/HCPCS: 36415; 80053; 80178; 82728; 83540; 84439; 84443; 85027

== ENCOUNTER 2022-06-18 09:59 | Outpatient (REF) | payer BC, SELFPAY ==
[2022-06-18 10:12] LABS: MANUAL DIFF FLAG NO
[2022-06-18 10:31] LABS: Basophils Absolute Auto 0.1 X10*3/uL (0.0-0.2); Basophils Percent Auto 0.9 % (0-2); Eosinophils Absolute Auto 0.2 X10*3/uL (0.0-0.4); Hematocrit 50.5 % (42.0-52.0); Hemoglobin 16.9 g/dl (14.0-18.0); Imm Gran Abs Auto 0.02 X10*3/uL (0.00-0.03); Imm Gran Pct Auto 0.3 % (0.0-0.4); Lymphocytes Absolute Auto 1.7 X10*3/uL (1.2-4.9); Lymphocytes Percent Auto 23.6 % (20-40); Mean Corpuscular HGB Conc 33.5 g/dl (31.0-36.0); Mean Corpuscular Volume 92.5 fL (80.0-98.0); Mean Platelet Volume 9.4 fL (9.4-12.4); Monocytes Absolute Auto 0.7 X10*3/uL (0.1-1.2); Monocytes Percent Auto 10.3 % (2-11); Neutrophils Absolute Auto 4.3 x10*3/uL (2.0-8.3); Neutrophils Percent Auto 61.9 % (45-73); Platelet Count 211 X10*3/uL (160-400); Red Blood Count 5.46 X10*6/uL (4.60-5.80); Red Cell Distribution Width 12.8 % (11.0-16.0)
[2022-06-18 10:47] LABS: Estimated Average Glucose 111 mg/dL; Hemoglobin A1c % 5.5 %
[2022-06-18 10:57] LABS: Appearance Urine Clear; Color Urine Dark Yellow; Glucose Urine UA Negative (Negative); Leukocyte Esterase Urine Trace (Negative); Nitrite Urine Negative (Negative); Specific Gravity - Urine 1.025 (1.005-1.025); UMIC TRIGGER UACC YES; Urine Blood Negative (Negative); Urine Ketones Trace mg/dL (Negative); Urine Protein Trace mg/dL (Neg-Trace)
[2022-06-18 11:12] LABS: Alanine Aminotransferase 19 U/L (0-40); Albumin Level 4.6 g/dL (3.5-5.0); Alkaline Phosphatase 57 U/L (39-117); Anion Gap 14 (12-20); Aspartate Amino Transferase 26 U/L (5-37); Bilirubin Total 1.8 mg/dL (0.0-1.0); Blood Urea Nitrogen 19 mg/dL (9-16); Calcium 9.6 mg/dL (8.4-10.2); Carbon Dioxide 27 mmol/L (22-29); Chloride 102 mmol/L (96-108); Cholesterol 211 mg/dL; Estimated Glomerular Filt Rate > 60; Glucose Random 83 mg/dL (60-115); HDL Cholesterol 50 mg/dL; LDL Cholesterol Calculated 149 mg/dl; Potassium 4.6 mmol/L (3.3-5.1); Sodium 138 mmol/L (135-145); Total Protein 7.3 g/dL (6.5-8.0); Triglycerides 64 mg/dL
[2022-06-18 11:41] LABS: Folate 12.7 ng/mL (> or = 4.0); Free T4 (Free Thyroxine) 1.04 ng/dL (0.71-1.85); Thyroid Stimulating Hormone 1.63 uIU/mL (0.32-4.0); Vitamin B12 475 pg/mL (200-900)
[2022-06-18 11:44] LABS: Bacteria Urine None Seen (None Seen); RBC Urine 0-2 /HPF (0-2); Squamous Epithelial Cell Urine 0-2 /HPF (0-2); WBC Urine 0-5 /HPF (0-5)
== END 2022-06-18 10:00 | disposition home or self-care (01) ==
LOC: HO.LAB 09:59
PROVIDERS: Absent Provider Internal Medicine; PCP Internal Medicine; Visit Provider Nurse Practitioner Family
DX: Z12.5 Encounter for screening for malignant neoplasm of prostate (principal); R82.998 Other abnormal findings in urine; E78.00 Pure hypercholesterolemia, unspecified; R73.02 Impaired glucose tolerance (oral); E66.9 Obesity, unspecified
CPT/HCPCS: 36415; 80053; 80061; 81001; 82550; 82607; 82746; 83036; 84153; 84439; 84443; 85025

== ENCOUNTER → 2022-06-29 13:07 | Outpatient (BNVA) | payer BC, SELFPAY | PROVIDERS: PCP Internal Medicine; Visit Provider Internal Medicine Gastroenterology ==

== ENCOUNTER 2022-09-03 09:45 | Outpatient (REF) | payer BC, SELFPAY ==
--- NOTE | ~2022-09-03 | FL_ITS ---
EXAMINATION: FL BARIUM SWALLOW CLINICAL INFORMATION: Dysphagia. COMPARISON: None available. TECHNIQUE: Barium swallow examination is performed using fluoroscopic evaluation in addition to multiple fluoroscopic spot views. The patient is imaged both upright and prone and using both thick and thin sulfate along with effervescent granules. Fluoroscopy time: 1.0 minutes DAP: 7.174 uGy-cm2 Images: 28 FINDINGS: Following oral administration of thick, thin barium and barium coated tablet in upright view there is normal propagation of bolus from the oral cavity through the pharynx, esophagus into stomach without any evidence of obstruction, narrowing or stricture. The course, caliber and peristalsis of the esophagus are normal. There is no extrinsic compression or intrinsic filling defect. The GE junction is widely patent. FL/FL barium swallow IMPRESSION: Unremarkable upright barium swallow exam.
== END 2022-09-03 09:46 | disposition home or self-care (01) ==
LOC: HO.XRAY 09:45
PROVIDERS: PCP Internal Medicine; Visit Provider Internal Medicine Gastroenterology
DX: R13.14 Dysphagia, pharyngoesophageal phase (principal)
CPT/HCPCS: 74220

== ENCOUNTER → 2022-09-03 09:46 | Outpatient (BNV) | payer BC, SELFPAY | PROVIDERS: PCP Internal Medicine; Visit Provider Radiology Diagnostic Radiology | DX: R13.14 Dysphagia, pharyngoesophageal phase (principal) | CPT/HCPCS: 74221 ==

== ENCOUNTER 2022-09-14 13:04 | Outpatient (REF) | payer BC, SELFPAY ==
[2022-09-14 16:35] LABS: MANUAL DIFF FLAG NO
[2022-09-14 16:39] LABS: Basophils Percent Auto 0.6 % (0-2); Eosinophils Absolute Auto 0.3 X10*3/uL (0.0-0.4); Eosinophils Percent Auto 4.5 % (0-4); Hematocrit 48.7 % (42.0-52.0); Imm Gran Abs Auto 0.03 X10*3/uL (0.00-0.03); Imm Gran Pct Auto 0.4 % (0.0-0.4); Lymphocytes Absolute Auto 1.7 X10*3/uL (1.2-4.9); Lymphocytes Percent Auto 24.4 % (20-40); Mean Corpuscular HGB Conc 32.9 g/dl (31.0-36.0); Mean Corpuscular Hemoglobin 31.3 pg (27.0-33.0); Mean Corpuscular Volume 95.1 fL (80.0-98.0); Mean Platelet Volume 10.2 fL (9.4-12.4); Monocytes Absolute Auto 0.6 X10*3/uL (0.1-1.2); Monocytes Percent Auto 7.9 % (2-11); Neutrophils Absolute Auto 4.3 x10*3/uL (2.0-8.3); Neutrophils Percent Auto 62.2 % (45-73); Platelet Count 181 X10*3/uL (160-400); Red Blood Count 5.12 X10*6/uL (4.60-5.80); Red Cell Distribution Width 13.2 % (11.0-16.0)
[2022-09-14 16:50] LABS: Estimated Average Glucose 103 mg/dL; Hemoglobin A1c % 5.2 %
[2022-09-14 16:53] LABS: Alanine Aminotransferase 15 U/L (0-40); Albumin Level 4.2 g/dL (3.5-5.0); Alkaline Phosphatase 58 U/L (39-117); Anion Gap 14 (12-20); Aspartate Amino Transferase 19 U/L (5-37); Bilirubin Total 0.4 mg/dL (0.0-1.0); Blood Urea Nitrogen 11 mg/dL (9-16); Calcium 9.3 mg/dL (8.4-10.2); Carbon Dioxide 26 mmol/L (22-29); Chloride 106 mmol/L (96-108); Cholesterol 172 mg/dL; Estimated Glomerular Filt Rate > 60; Glucose Random 104 mg/dL (60-115); HDL Cholesterol 51 mg/dL; LDL Cholesterol Calculated 102 mg/dl; Potassium 4.4 mmol/L (3.3-5.1); Sodium 142 mmol/L (135-145); Triglycerides 99 mg/dL
[2022-09-14 17:13] LABS: Free T4 (Free Thyroxine) 0.87 ng/dL (0.71-1.85); Thyroid Stimulating Hormone 1.33 uIU/mL (0.32-4.0)
[2022-09-15 05:59] LABS: Prolactin 5.2 ng/mL (2.0-18.0)
== END 2022-09-14 13:05 | disposition home or self-care (01) ==
LOC: HO.HMGCLDS 13:04
PROVIDERS: PCP Internal Medicine; Visit Provider Internal Medicine
DX: R68.89 Other general symptoms and signs (principal); E78.00 Pure hypercholesterolemia, unspecified; E66.9 Obesity, unspecified; R73.02 Impaired glucose tolerance (oral)
CPT/HCPCS: 36415; 80053; 80061; 83036; 84146; 84439; 84443; 85025

== ENCOUNTER 2022-10-04 11:47 | Outpatient (AMB) | payer BC, SELFPAY ==
[2022-10-04 11:49] VITALS: BP 132/86; PULSE 56; O2SAT 98; BMI 33.4
--- NOTE | 2022-10-04 11:49 | MHC.PC.OV ---
Vital Signs 10/04/22 11:49 Height 5 ft 10 in Weight 233 lb 2 oz BMI 33.4 BP 132/86 Blood Pressure Location Lt brachial Position Sitting Pulse 56 Pulse Source Pulse Oximeter Pulse Oximetry (%) 98 Oxygen Delivery Method Room Air Intake Visit Reasons: abnormal blood sugar readings/other symptoms Allergies Penicillins [PENICILLINS] Allergy (Intermediate, Verified 10/04/22 11:53) HIVES Tobacco use date assessed: 06/17/22 Dental Screening Dental Screen Date: 10/04/22 Did you have a dental visit in the last 12 months?: Yes Did you have a dental problem in the last 6 months where you did not have access to dental care?: No Was dental information given to patient?: Patient has dentist HPI HPI Comments History of Present Illness Details 52-year-old male medical history significant for JUAN CARLOS GERD,Insomnia,DVT DARRELL, hypercholesteremia and IGT. Patient of DR. Pavon presents today with his for ongoing heat intolerance and excessive sweating. Patient reports that this occurs daily and he will just be drenched in sweat all over his whole body. Patient reports last shower right or going anywhere. Patient was recently seen by Dr. Parra for DVT follow-up CBC, CMP, TSH and HIV labs WNL on 10/01/22. Patient reports will be completeing 24 hour urine as well. All out patient denies any difficulty swallowing, neck pain or goiter patient requesting to a ultrasound of his thyroid completed to rule out thyroid nodules. Ultrasound ordered as well as additional blood work CRP,ESR, SAMANTHA. [facility] Medical History DVT (deep venous thrombosis) Erectile dysfunction Generalized anxiety disorder GERD (gastroesophageal reflux disease) Hypercholesterolemia Hypogonadism Impaired glucose tolerance Insomnia Marijuana use Obesity (BMI 30-39.9) Obstructive sleep apnea Peptic ulcer disease Restless leg syndrome Surgical History History of colonoscopy Hx of endoscopy Family History Father Diabetes Heart attack Mother Thyroid condition Paternal Uncle Colon cancer Other GERD (gastroesophageal reflux disease) Social History Household Members: Spouse Housing: Condominium Are you a primary manager career to a significant other at home: No Do you presently have visiting nurse or other home services: No Alcohol intake: current Alcohol intake frequency: holidays/special occasions only Patient Tobacco Use Status: Former Tobacco user Tobacco use type: Cigarette Years Smoked: quit 2012 e-Cigarette/Vaping Use: Never Used Second Hand Smoke Exposure: No Substance Use Type: Marijuana service: No Current occupational status: employed Current occupational exposures/hazards: No Cognitive needs: No Hearing needs: No Vision needs: Yes (glasses) Questionnaire PHQ-9 Over the last 2 weeks, how often have you been bothered by any of the following problems? 1. Little interest or pleasure in doing things: not at all 2. Feeling down, depressed, or hopeless: not at all 3. Trouble falling or staying asleep, or sleeping too much: not at all 4. Feeling tired or having little energy: not at all 5. Poor appetite or overeating: not at all 6. Feeling bad about yourself - or that you are a failure or have let yourself or your family down: not at all 7. Trouble concentrating on things, such as reading the newspaper or watching television: not at all 8. Moving or speaking so slowly that other people could have noticed. Or the opposite - being so fidgety or restless that you have been moving around a lot more than usual: not at all 9. Thoughts that you would be better off or of hurting yourself in some way: not at all Total score: 0 Depression Screening Interpretation: Negative 94728 - PHQ-9 Billing: Yes Source: Developed by Drs. Iggy Sandoval, Myrna Valencia, Mj Tripp and colleagues, with an educational teo from [email or web address] Thrive Questionnaire Date Thrive assessed: 03/18/22 I am a: Patient What is your living situation today?: I have a steady place to live Within the past 12 months, did the food you bought not last and you didn't have the money to get more?: Never true Within the past 12 months, did you worry whether your food would run out before you got money to buy more?: Never true Currently or been in a relationship where the following occur: no concerns reported AUDIT C Alcohol Use Questionnaire (AUDIT-C) 1. How often do you have a drink containing alcohol?: 4 or more times a week 2. How many drinks containing alcohol do you have on a typical day when you are drinking?: 1 or 2 3. How often do you have six or more drinks on one occasion?: Never Total Score: 4 Score Reviewed/Action Taken: Yes DARRELL-7 AMB Questionnaire DARRELL-7 Date DARRELL - 7 assessed: 03/18/22 Feeling nervous, anxious, or on edge: 0 = Not at all Not being able to stop or control worryin = Not at all Worrying too much about different things: 0 = Not at all Trouble relaxin = Not at all Being so restless that it is hard to sit still: 0 = Not at all Becoming easily annoyed or irritable: 0 = Not at all Feeling afraid as if something awful might happen: 0 = Not at all Total DARRELL-7 score (0-4 normal; 5-9 mild; 10-14 moderate; 15-21 severe): 0 Source: Developed by Drs. Iggy Sandoval, Myrna Valencia, Mj Tripp and colleagues, with an educational teo from [email or web address]. DARRELL-7 Assessment Billing DARRELL-7 Assessment Tool: DARRELL-7 Assessment 73944 Review of Systems Const Denies chills, Denies fatigue, Denies fever(s) and Denies poor appetite Eyes Denies no additional complaints ENT Reports Normal hearing present Card Denies chest pain, Denies syncope, Denies rapid heart rate and Denies dyspnea Resp Denies cough and Denies dyspnea GI Denies change in stool character, Denies constipation, Denies diarrhea, Denies nausea and Denies vomiting Denies dysuria, Denies urinary frequency and Denies urinary urgency Neuro Reports Normal hearing present, Denies confusion and Denies syncope Psych Denies confusion Endo Denies fatigue Physical exam (Primary Care) Vital Signs: Last Vital Signs Pulse 56 10/04/22 11:49 BP 132/86 10/04/22 11:49 Pulse Ox 98 10/04/22 11:49 Oxygen Delivery Method Room Air 10/04/22 11:49 BMI result Body Mass Index 33.4 Tobacco/Smoking Status: Tobacco use Status Tobacco use date assessed 06/17/22 10/04/22 11:56 Patient Tobacco Use Status Former Tobacco user 10/04/22 11:56 Tobacco use type Cigarette 10/04/22 11:56 e-Cigarette/Vaping Use Never Used 10/04/22 11:56 PHQ-9: PHQ-9 Score PHQ-9: Total score 0 10/04/22 12:06 Depression Screening Interpretation: Negative Thrive Assessment: Date of Thrive Assessment Date Thrive assessed 03/18/22 10/04/22 11:56 Currently or been in a relationship where the following occur: no concerns reported Const General: No confusion Orientation/consciousness: No confusion HENMT Head: Yes normocephalic and Yes atraumatic Eyes Conjunctivae: conjunctivae normal Chest Chest palpation & inspection: normal inspection of the chest Resp Effort & Inspection: normal respiratory effort Auscultation: clear to auscultation bilaterally, no crackles, no rhonchi and no wheezes Cardio Rate: regular rate Rhythm: regular rhythm Heart sounds: S1 normal heart sound present and S2 normal heart sound present GI Inspection: Yes normal to inspection Neuro General: No confusion Cranial nerves: Yes Normal hearing present Extrem General: No edema Assessment and Plan Assessment & Plan (1) Heat intolerance: Code(s): R68.89 - Other general symptoms and signs Plan: Labs and thyroid u/s ordered as requested by patient. (2) Excessive sweating: Code(s): R61 - Generalized hyperhidrosis Plan Follow up in 3 months or sooner if needed Orders: Orders CRP High Sensitivity Today R68.89 - Other general symptoms and signs Rheumatoid Factor Today R68.89 - Other general symptoms and signs Erythrocyte Sedimentation Rate Today R68.89 - Other general symptoms and signs SAMANTHA Reflex Titer and Pattern Today R68.89 - Other general symptoms and signs US thyroid Today R68.89 - Other general symptoms and signs Coding Level of Care Code Est Pt Level 3 (04565) Diagnoses Heat intolerance R68.89 Excessive sweating R61 Additional Codes DARRELL-7 Assessment Billing - DARRELL-7 Assessment Tool: DARRELL-7 Assessment 31499 ([id number])
== END 2022-10-04 12:31 | disposition home or self-care (01) ==
PROVIDERS: PCP Internal Medicine; Visit Provider Nurse Practitioner Family
DX: R68.89 Other general symptoms and signs (principal); R61 Generalized hyperhidrosis
CPT/HCPCS: 99213

== ENCOUNTER 2022-10-12 16:35 | Outpatient (REF) | payer BC, SELFPAY ==
[2022-10-12 18:23] LABS: Rheumatoid Factor < 13.0 IU/mL (<15.0)
[2022-10-12 18:40] LABS: Erythrocyte Sedimentation Rate 1 MM/HR (0-15)
[2022-10-15 09:54] LABS: CRP High Sensitivity 1.7 mg/L
[2022-10-20 12:13] LABS: ANA Titer 2 1:40 titer; Anti Nuclear Antibody Screen POSITIVE (NEGATIVE); Anti Nuclear Antibody Titer 1:40 titer
== END 2022-10-12 16:36 | disposition home or self-care (01) ==
LOC: HO.LAB 16:35
PROVIDERS: PCP Internal Medicine; Visit Provider Nurse Practitioner Family
DX: R68.89 Other general symptoms and signs (principal)
CPT/HCPCS: 36415; 85652; 86038; 86039; 86141; 86431

== ENCOUNTER 2022-10-14 12:58 | Outpatient (REF) | payer BC, SELFPAY ==
--- NOTE | ~2022-10-14 | US_ITS ---
EXAMINATION: US THYROID CLINICAL INFORMATION: Other general symptoms and signs. COMPARISON: None available. TECHNIQUE: Linear transducer grayscale and color Doppler examination with attention to the region of the thyroid. FINDINGS: SIZE: Measurements of the thyroid lobes and nodules are given in sagittal, anteroposterior and transverse dimensions respectively. Right Thyroid Lobe: 5.2 x 1.8 x 2.0 cm, volume 10.1 mL. Parenchyma: The gland echotexture is homogeneous. Thyroid vascularity is normal. Left Thyroid Lobe: 5.2 x 1.7 x 2.1 cm, volume 9.8 mL. Parenchyma: The gland echotexture is homogeneous. Thyroid vascularity is normal. Isthmus: 0.5 cm in maximum AP dimension. No focal thyroid nodule is seen. NODES: No lymphadenopathy is seen in the tissue surrounding the thyroid gland. US/US thyroid IMPRESSION: 1. There is mild thyromegaly. 2. No focal thyroid nodule seen. 3. There is no alteration of thyroid echotexture or increased vascularity. ACR TI-RADS RECOMMENDATION REFERENCE: Ultrasound-guided fine-needle aspiration, followup ultrasound, no further follow up. * TR1 (0 point) and TR2 (2 points): No FNA or follow up. * TR3 (3 points): FNA if more than or equal to 2.5 cm in maximum dimension, followup ultrasound in 1, 3 and 5 years if 1.5 to 2.4 cm in maximum dimension. * TR4 (4-6 points): FNA if more than or equal to 1.5 cm in maximum dimension, followup ultrasound in 1, 2, 3 and 5 years if 1 to 1.4 cm in maximum dimension. * TR5 (more than or equal to 7 points): FNA if more than or equal to 1 cm in maximum dimension, followup ultrasound every year for 5 years if 0.5 to 0.9 cm in maximum dimension. * TR3, TR4 or TR5 nodules that are below the size threshold for followup receive no follow up.
== END 2022-10-14 12:59 | disposition home or self-care (01) ==
LOC: HO.US 12:58
PROVIDERS: PCP Internal Medicine; Visit Provider Nurse Practitioner Family
DX: R68.89 Other general symptoms and signs (principal)
CPT/HCPCS: 76536

== ENCOUNTER 2022-10-26 13:05 | Outpatient (AMB) | payer BC, SELFPAY ==
--- NOTE | 2022-10-26 13:06 | A.OFFVIS_ITS ---
Intake Vital Signs 10/26/22 13:07 Height 5 ft 10 in Weight 232 lb 12.93 oz BMI 33.4 BP 106/64 Blood Pressure Location Rt brachial Position Sitting Pulse 66 Pulse Source Pulse Oximeter Pulse Oximetry (%) 98 Intake Visit Reasons: + SAMANTHA Intake Note: New pt presents today for +SAMANTHA consult. Referred by PCP to discuss abnormal lab Consumer Safety Officer Required: No Accompanied by: Spouse Allergies Penicillins [PENICILLINS] Allergy (Intermediate, Verified 10/26/22 13:09) HIVES Medication List - Last Reconciled 10/26/22 by Manisha Hughes MD alprostadil 2.5 mcg intra-cavernosal 3XW PRN [BIPAP heated humidified air As directed] gabapentin 1,800 mg PO TID hydrocortisone 2.5% (Proctosol HC) 1 appl ME BID-QID PRN lansoprazole 30 mg PO BID 90 days lithium carbonate 300 mg PO BEDTIME lithium carbonate 150 mg PO DAILY methadone 2.5 mg PO DAILY rivaroxaban (Xarelto) 10 mg PO DAILY rivaroxaban 10 mg PO DAILY sennosides-docusate sodium 8.6-50 mg (Senna-S) 2 tab-caps (2 x 8.6-50 mg) PO BEDTIME 60 days testosterone cypionate 150 mg IM USEASDIRECTD HPI HPI Comments History of Present Illness Details This is a 52-year-old male who is referred for evaluation of positive SAMANTHA. This was done in the context of significant insomnia and episodic diffuse sweating. 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 Recent labs showed a positive SAMANTHA. Patient denies any joint pain or stiffness. He has history of vitiligo. He has history of DVT in 2018. He is on Xarelto. He has cousins with MS. [place] [facility] Medical History DVT (deep venous thrombosis) Impaired glucose tolerance Peptic ulcer disease Hypercholesterolemia Hypogonadism Generalized anxiety disorder Marijuana use Erectile dysfunction Obesity (BMI 30-39.9) Insomnia GERD (gastroesophageal reflux disease) Restless leg syndrome Obstructive sleep apnea Surgical History Hx of tooth extraction History of colonoscopy Hx of endoscopy Family History Father Diabetes Heart attack Mother Thyroid condition Paternal Uncle Colon cancer Family/Other Family history of multiple sclerosis Other GERD (gastroesophageal reflux disease) Social History Household Members: [facility] Are you a primary customer care representative to a significant other at home: No Do you presently have visiting nurse or other home services: No Alcohol intake: current Alcohol intake frequency: a few times a week Patient Tobacco Use Status: Former Tobacco user Tobacco use type: Cigarette Years Smoked: quit 2012 e-Cigarette/Vaping Use: Never Used Second Hand Smoke Exposure: No Substance Use Type: Marijuana service: No Current occupational status: employed Current occupational exposures/hazards: No Cognitive needs: No Hearing needs: No Vision needs: Yes (glasses) Review of Systems Const Reports excessive sweating Card Reports irregular heart rhythm Psych Reports abnormal sleep pattern Endo Reports excessive sweating Physical Exam Vital Signs: Last Vital Signs Pulse 66 10/26/22 13:07 BP 106/64 10/26/22 13:07 Pulse Ox 98 10/26/22 13:07 BMI result Body Mass Index 33.4 Const General: cooperative, healthy appearing and comfortable Nutritional Appearance: obese Orientation/consciousness: patient oriented x3 Limitations: no limitations HEENT Head: Yes normocephalic and Yes atraumatic Mouth: moist mucous membranes Resp Effort & Inspection: normal respiratory effort and able to speak in complete sentences Auscultation: clear to auscultation bilaterally Skin Other: Areas of hypopigmentation in all 4 extremities Nailfold capillaroscopy shows right ring finger with few parallel hemorrhages Nailfold capillaroscopy otherwise unremarkable No active synovitis Normal range of motion of both hands, wrists, elbows, knees and shoulders wi thout pain Neuro General: patient oriented x3 Assessment & Plan Assessment & Plan (1) Positive SAMANTHA (antinuclear antibody): Code(s): R76.8 - Other specified abnormal immunological findings in serum Plan: This is a 52-year-old male who presents for evaluation of a positive SAMANTHA 1-40. This was done in the context of episodic sweating and insomnia. I do not see any signs of autoimmune rheumatic disease upon my evaluation today. His SAMANTHA is 1-40 and is generally considered negative in the Rheumatology world. I explained that about 20% of the healthy population might have a positive SAMANTHA without an autoimmune rheumatic disease Follow-up as needed Plan I spent 20 minutes reviewing patient's chart, evaluating patient, ordering diagnostic workup, counseling patient and documenting in the chart Coding Level of Care Code New Pt Level 3 (26948) Diagnoses Positive SAMANTHA (antinuclear antibody) R76.8
[2022-10-26 13:07] VITALS: BP 106/64; PULSE 66; O2SAT 98; BMI 33.4
== END 2022-10-26 13:35 | disposition home or self-care (01) ==
PROVIDERS: PCP Internal Medicine; Visit Provider Student in an Organized Health Care Education/Training Program
DX: R76.8 Other specified abnormal immunological findings in serum (principal)
CPT/HCPCS: 99203

== ENCOUNTER → 2022-10-26 13:05 | Outpatient (BNVA) | payer BC, SELFPAY | PROVIDERS: PCP Internal Medicine; Visit Provider Student in an Organized Health Care Education/Training Program ==

== ENCOUNTER 2022-10-28 11:07 | Emergency (ER) | payer BC, SELFPAY ==
[2022-10-28 11:19] VITALS: BP 135/66; PULSE 51; RESP 19; TEMP 36.6; O2SAT 98; BMI 33.3
--- NOTE | 2022-10-28 11:20 | ED_ITS ---
HPI - GI Bleed General Chief complaint: GI Bleed Stated complaint: rectal bleeding ? Time Seen by Provider: 10/28/22 13:07 Source: patient Mode of arrival: ambulatory History of Present Illness HPI Narrative: 52-year-old male on chronic anticoagulation for DVT of left lower extremity several years ago presents with 2 isolated episodes bleeding on defecation that he only visualized on the toilet paper and the 2nd time in the toilet bowl, this is not been associated with any abdominal discomfort, no soiling of undergarments. Patient's last colonoscopy was last year and he reports was benign in nature. Patient states that he discuss this with his grant officer, Dr. Hernandez Related Data Home Medications Medication Instructions Recorded Confirmed lithium carbonate 300 mg capsule 300 mg PO BEDTIME 03/18/22 10/26/22 methadone 5 mg tablet 2.5 mg PO DAILY 06/17/22 10/26/22 gabapentin 600 mg tablet 1,800 mg PO TID 06/29/22 10/26/22 lithium carbonate 150 mg capsule 150 mg PO DAILY 06/29/22 10/26/22 testosterone cypionate 200 mg/mL 150 mg IM USEASDIRECTD 06/29/22 10/26/22 intramuscular oil Previous Rx's Medication Instructions Recorded BIPAP heated humidified air #1 ea 02/29/20 alprostadil 20 mcg intracavernosal 2.5 mcg intra-cavernosal 3XW PRN 07/28/20 kit erectile dysfunction #1 ea hydrocortisone 2.5 % topical cream 1 appl [place] BID-QID PRN hemorrhoids 03/18/22 with perineal applicator #30 grams (Proctosol HC) sennosides 8.6 mg-docusate sodium 2 tab-cap (2 x 8.6-50 mg) PO 03/18/22 50 mg tablet (Senna-S) BEDTIME 60 days #120 tabs lansoprazole 30 mg capsule,delayed 30 mg PO BID 90 days #180 caps 06/29/22 release rivaroxaban 10 mg tablet 10 mg PO DAILY 09/23/22 rivaroxaban 10 mg tablet (Xarelto) 10 mg PO DAILY #90 tabs 09/23/22 Allergies Allergy/AdvReac Type Severity Reaction Status Date / Time Penicillins [PENICILLINS] Allergy Intermediate HIVES Verified 10/28/22 11:18 Review of Systems 2 Review of Systems: Pertinent positives and negatives as stated in [facility]PI [facility] Past Medical History Source: nursing notes reviewed Medical History DVT (deep venous thrombosis) Impaired glucose tolerance Peptic ulcer disease Hypercholesterolemia Hypogonadism Generalized anxiety disorder Marijuana use Erectile dysfunction Obesity (BMI 30-39.9) Insomnia GERD (gastroesophageal reflux disease) Restless leg syndrome Obstructive sleep apnea Surgical History Hx of tooth extraction History of colonoscopy Hx of endoscopy Family History Family History Father Diabetes Heart attack Mother Thyroid condition Paternal Uncle Colon cancer Family/Other Family history of multiple sclerosis Other GERD (gastroesophageal reflux disease) Social History Social History Household Members: Spouse Housing: [facility] Are you a primary healthcare economics consultant to a significant other at home: No Do you presently have visiting nurse or other home services: No Alcohol intake: current Alcohol intake frequency: a few times a week Patient Tobacco Use Status: Former Tobacco user Tobacco use type: Cigarette Years Smoked: quit 2012 e-Cigarette/Vaping Use: Never Used Second Hand Smoke Exposure: No Substance Use Type: Marijuana Advance Directives: No service: No Current occupational status: employed Current occupational exposures/hazards: No Cognitive needs: No Hearing needs: No Vision needs: Yes (glasses) Physical Exam 2 Vital Signs: Vital Signs: Last Vital Signs Temp 98 F 10/28/22 11:19 Pulse 54 10/28/22 13:21 Resp 16 10/28/22 13:21 BP 120/71 10/28/22 13:21 Pulse Ox 98 10/28/22 13:21 O2 Del Method Room Air 10/28/22 13:21 BMI result Body Mass Index 33.3 VITAL SIGNS: Reviewed. GENERAL: Well developed, well nourished, in no acute distress. HEAD: Normocephalic/atraumatic EYES: PERRLA, EOMI EARS: Ext canals without abnormality NOSE: Nares patent bilateral OROPHARYNX: no oral lesions noted, posterior pharynx clear NECK: Supple, no adenopathy LUNGS: Normal breath sounds. No adventitious sounds or accessory muscle use. SpO2<98> CARDIOVASCULAR: Regular rate and rhythm without noted murmurs ABDOMEN: Soft, non-tender, non-distended with bowel sounds. SILVANA: No external inflamed hemorrhoids noted. There is a small amount of firm stool within the rectal vault, scant amount brown stool that appears to be mixed with blood, no melena appreciated. MUSCULOSKELETAL: No tenderness, deformities, or effusions noted on gross inspection. EXTREMITIES: No cyanosis, clubbing or edema. SKIN: Inspection of the skin reveals no rashes NEUROLOGIC: Alert and oriented x 4. Strength and sensation to light touch were grossly intact x 4. Course Course Course Narrative: This is an RME: Additional HPI, ROS, PE not included below will be deferred to primary provider. This is a 27-bapc-xvz-male, with a hx of DVT on xarelto diagnosed severeal years ago, JUAN CARLOS, GERD,Insomnia, DARRELL, hypercholesteremia and IGT, presenting to the emergency department for evaluation of 2 episodes of bloody bowel movements. Patient states that 2 days ago he had a bowel movement in the entire toilet bowl was filled with blood. He states that he has had another bowel movement without blood however noticed this morning the same thing occurred. He states that he is feeling well. Pt is being followed by Dr. Parra for excessive sweating ?carcinoid syndrome Plan: Labs ordered. Medical Decision Making Medical Decision Making MDM Narrative: 52-year-old male with history and clinical presentation of being on chronic anticoagulation with firm stool on clinical exam in no concerning history to raise concern for diverticular/ischemic cause for rectal bleeding and suspect that this is hemorrhoidal in nature and likely contributed by a component of constipation/hard stools which in the setting of being on chronic anticoagulation has led to isolated bleeding during defecation. Patient is not hypotensive, tachycardic, and no abdominal pain on exam. I reviewed all investigations and hematologic in to see the grossly within normal limits as there is no evidence of acute blood loss and no leukocytosis or left shift and no thrombocytopenia. Coagulation studies are grossly within normal limits. Chemistry indices without FRANSICO, no electrolyte or liver enzyme abnormalities. Guaiac is positive. I will discuss the case with Dr. Ames, but at this time I do not feel that a CT scan is warranted and feel that patient could follow-up as outpatient. 1346: Consulted with Dr Granados as Dr Hernandez is on vacation. He recommends if stable can follow up with Dr Hernandez in the outpatient setting and agrees with no CT scan at this time. Differential Diagnosis Differential Diagnoses: The differential diagnosis associated with the presentation includes Please see the discussion above Admission/Observation Consideration of admission/observation: Escalation of care including admission/observation considered Please see the discussion above Consult Healthcare Provider Management of the patient was discussed with: Transport Tank Technician Please see the discussion above Lab Data MDM Lab Attestation statement: I reviewed the patient's lab results. Please see the discussion above 10/28/22 11:41 10/28/22 11:41 Labs: Lab Results 10/28/22 10/28/22 Range/Units 11:41 13:25 WBC 6.7 (4.8-10.8) X10*3/uL RBC 5.00 (4.60-5.80) X10*6/uL Hgb 15.7 (14.0-18.0) g/dl Hct 47.3 (42.0-52.0) % MCV 94.6 (80.0-98.0) fL MCH 31.4 (27.0-33.0) pg MCHC 33.2 (31.0-36.0) g/dl RDW 13.0 (11.0-16.0) % Plt Count 173 (160-400) X10*3/uL MPV 9.7 (9.4-12.4) fL Immature Gran % (Auto) 0.3 (0.0-0.4) % Neut % (Auto) 56.6 (45-73) % Lymph % (Auto) 25.9 (20-40) % [place] % (Auto) 9.4 (2-11) % Eos % (Auto) 6.9 H (0-4) % Baso % (Auto) 0.9 (0-2) % Lymph # (Auto) 1.7 (1.2-4.9) X10*3/uL [place] # (Auto) 0.6 (0.1-1.2) X10*3/uL Eos # (Auto) 0.5 H (0.0-0.4) X10*3/uL Baso # (Auto) 0.1 (0.0-0.2) X10*3/uL Abs Immat Gran (auto) 0.02 (0.00-0.03) X10*3/uL Absolute Neuts (auto) 3.8 (2.0-8.3) x10*3/uL Absolute Nucleated RBC 0.000 (0.0-0.012) X10*3/uL Nucleated RBC % (auto) 0.0 (0.0-0.2) /100WBC PT 11.7 (11.1-13.3) SEC INR 1.0 (0.9-1.1) APTT 32.6 (26.0-36.4) SEC Sodium 140 (135-145) mmol/L Potassium 4.5 D (3.3-5.1) mmol/L Chloride 107 (96-108) mmol/L Carbon Dioxide 27 (22-29) mmol/L Anion Gap 11 L (12-20) BUN 14 (9-16) mg/dL Creatinine 1.14 (0.5-1.4) mg/dL Estim Creat Clear Calc 92.0 Estimated GFR > 60 Random Glucose 136 H (60-115) mg/dL Calcium 9.1 D (8.4-10.2) mg/dL Total Bilirubin 0.4 (0.0-1.0) mg/dL Direct Bilirubin 0.1 (0.0-0.5) mg/dL AST 18 (5-37) U/L ALT 14 (0-40) U/L Alkaline Phosphatase 80 (39-117) U/L Total Protein 6.9 (6.5-8.0) g/dL Albumin 4.1 (3.5-5.0) g/dL Stool Occult Blood POSITIVE (NEGATIVE) Blood Type O Positive Antibody Screen NEGATIVE External Record Review External record reviewed: Outpatient record, Prior outpatient labs and Prior outpatient radiology Discharge Plan Discharge Clinical Impression: Bleeding hemorrhoids, Chronic anticoagulation, Constipation Patient Disposition: Home, Self-Care Instructions: Constipation (ED), Hemorrhoids (ED), High Fiber Diet (ED), Blood Thinners (ED) Additional Instructions: 1. Resume all home medications as prescribed. 2. Recommend cepu-hym-fgftnxy stool softener such as Colace (docusate). 3. Please call the office of Dr. Hernandez and schedule an appointment for re- evaluation further outpatient management. Return to the emergency room for repeated episodes of rectal bleeding or rectal bleeding associated with abdominal pain right any time when you feel short of breath or have palpitations associated with your rectal bleeding. Prescriptions: No Action (DME) BIPAP heated humidified air See Rx Instructions .Route .MEDSUPPLY Qty: 1 0RF Rx Instructions: As directed alprostadil 20 mcg kit 2.5 mcg intra-cavernosal 3XW PRN (Reason: erectile dysfunction) Qty: 1 0RF rivaroxaban 10 mg tablet 10 mg PO DAILY 0RF Xarelto 10 mg Tablet 10 mg PO DAILY Qty: 90 4RF Rx Instructions: for 35 days methadone 5 mg tablet 2.5 mg PO DAILY lithium carbonate 300 mg capsule 300 mg PO BEDTIME sennosides-docusate sodium [Senna-S] 8.6-50 mg tablet 2 tab-cap PO BEDTIME 60 Days Qty: 120 2RF hydrocortisone [Proctosol HC] 2.5 % cream with perineal applicator 1 appl KS BID-QID PRN (Reason: hemorrhoids) Qty: 30 0RF gabapentin 600 mg tablet 1,800 mg PO TID Patient Comments: 1200 mg 7 pm , 1200 mg 10 pm lithium carbonate 150 mg capsule 150 mg PO DAILY testosterone cypionate 200 mg/mL oil 150 mg IM USEASDIRECTD lansoprazole 30 mg capsule,delayed release(DR/EC) 30 mg PO BID 90 Days Qty: 180 3RF Referrals: Rl Hernandez MD [Physician] - Po,Waylon Kang MD [Primary Care Provider] -
[2022-10-28 11:46] LABS: MANUAL DIFF FLAG NO
[2022-10-28 11:48] LABS: Basophils Absolute Auto 0.1 X10*3/uL (0.0-0.2); Basophils Percent Auto 0.9 % (0-2); Eosinophils Absolute Auto 0.5 X10*3/uL (0.0-0.4); Eosinophils Percent Auto 6.9 % (0-4); Hematocrit 47.3 % (42.0-52.0); Hemoglobin 15.7 g/dl (14.0-18.0); Imm Gran Abs Auto 0.02 X10*3/uL (0.00-0.03); Imm Gran Pct Auto 0.3 % (0.0-0.4); Lymphocytes Absolute Auto 1.7 X10*3/uL (1.2-4.9); Lymphocytes Percent Auto 25.9 % (20-40); Mean Corpuscular HGB Conc 33.2 g/dl (31.0-36.0); Mean Corpuscular Hemoglobin 31.4 pg (27.0-33.0); Mean Corpuscular Volume 94.6 fL (80.0-98.0); Mean Platelet Volume 9.7 fL (9.4-12.4); Monocytes Absolute Auto 0.6 X10*3/uL (0.1-1.2); Monocytes Percent Auto 9.4 % (2-11); Neutrophils Absolute Auto 3.8 x10*3/uL (2.0-8.3); Neutrophils Percent Auto 56.6 % (45-73); Platelet Count 173 X10*3/uL (160-400); White Blood Count 6.7 X10*3/uL (4.8-10.8)
[2022-10-28 11:56] LABS: Prothrombin Time 11.7 SEC (11.1-13.3)
[2022-10-28 11:59] LABS: Partial Thromboplastin Time 32.6 SEC (26.0-36.4)
[2022-10-28 12:03] LABS: Alanine Aminotransferase 14 U/L (0-40); Albumin Level 4.1 g/dL (3.5-5.0); Alkaline Phosphatase 80 U/L (39-117); Anion Gap 11 (12-20); Aspartate Amino Transferase 18 U/L (5-37); Bilirubin Direct 0.1 mg/dL (0.0-0.5); Bilirubin Total 0.4 mg/dL (0.0-1.0); Blood Urea Nitrogen 14 mg/dL (9-16); Calcium 9.1 mg/dL (8.4-10.2); Carbon Dioxide 27 mmol/L (22-29); Chloride 107 mmol/L (96-108); Estimated Glomerular Filt Rate > 60; Glucose Random 136 mg/dL (60-115); Potassium 4.5 mmol/L (3.3-5.1); Sodium 140 mmol/L (135-145); Total Protein 6.9 g/dL (6.5-8.0)
[2022-10-28 13:21] VITALS: BP 120/71; PULSE 54; RESP 16; O2SAT 98
[2022-10-28 13:32] LABS: OBS Int Ctl Valid YES; OBS1 POSITIVE (NEGATIVE)
== END 2022-10-28 14:45 | disposition home or self-care (01) ==
PROVIDERS: Physician Assistant Medical; Emergency Provider Student in an Organized Health Care Education/Training Program; PCP Internal Medicine
DX: K64.9 Unspecified hemorrhoids (principal); K59.00 Constipation, unspecified; E78.00 Pure hypercholesterolemia, unspecified; F11.20 Opioid dependence, uncomplicated; E66.9 Obesity, unspecified; Z68.33 Body mass index [BMI] 33.0-33.9, adult; Z86.718 Personal history of other venous thrombosis and embolism; Z87.891 Personal history of nicotine dependence; Z79.899 Other long term (current) drug therapy; Z79.01 Long term (current) use of anticoagulants
CPT/HCPCS: 36415; 80048; 80076; 82272; 85025; 85610; 85730; 86850; 86900; 86901; 99284

== ENCOUNTER 2022-10-31 21:37 | Emergency (ER) | payer BC, SELFPAY ==
--- NOTE | ~2022-10-31 | CT_ITS ---
EXAMINATION: CT HEAD WITHOUT CONTRAST CLINICAL INFORMATION: Headache. Patient on Xarelto. COMPARISON: None available. TECHNIQUE: Contiguous axial imaging was performed from the skull base to vertex without intravenous administration of contrast. This CT examination was performed using dose optimization techniques as appropriate, variously including the following: *Automated exposure control *Adjustment of mA and/or kV according to patient size (this includes techniques or standardized protocols for targeted exams where dose is matched to indication/reason for exam; i.e. extremities or head) *Use of iterative reconstruction technique DLP: 676 mGy-cm FINDINGS: The lateral, third and fourth ventricles are normally outlined. The cortical sulci and basal cisterns are normally outlined as well. There is no acute territorial defect, hemorrhage or midline shift. The extra-axial spaces are unremarkable. Calvarium: Intact. The maxillofacial sinuses and mastoids: There are ethmoid sinus opacities. There is sphenoid and maxillary sinus mucosal thickening. The remaining visualized maxillofacial sinuses and mastoids are clear. CT/CT head/brain wo IV con IMPRESSION: No acute intracranial pathology. Ethmoid sinus opacities of uncertain acuity and current significance. Sphenoid and maxillary sinus mucosal thickening.
[2022-10-31 21:48] VITALS: BP 151/86; PULSE 81; RESP 18; TEMP 37.3; O2SAT 96; BMI 32.3
[2022-10-31 22:22] LABS: MANUAL DIFF FLAG NO
[2022-10-31 22:24] LABS: Basophils Absolute Auto 0.1 X10*3/uL (0.0-0.2); Basophils Percent Auto 0.6 % (0-2); Eosinophils Absolute Auto 0.2 X10*3/uL (0.0-0.4); Eosinophils Percent Auto 2.8 % (0-4); Hematocrit 47.9 % (42.0-52.0); Hemoglobin 16.2 g/dl (14.0-18.0); Imm Gran Abs Auto 0.03 X10*3/uL (0.00-0.03); Imm Gran Pct Auto 0.4 % (0.0-0.4); Lymphocytes Absolute Auto 1.8 X10*3/uL (1.2-4.9); Lymphocytes Percent Auto 22.3 % (20-40); Mean Corpuscular HGB Conc 33.8 g/dl (31.0-36.0); Mean Corpuscular Hemoglobin 31.5 pg (27.0-33.0); Mean Platelet Volume 9.6 fL (9.4-12.4); Monocytes Absolute Auto 0.6 X10*3/uL (0.1-1.2); Monocytes Percent Auto 7.1 % (2-11); Neutrophils Absolute Auto 5.3 x10*3/uL (2.0-8.3); Neutrophils Percent Auto 66.8 % (45-73); Platelet Count 211 X10*3/uL (160-400); Red Blood Count 5.15 X10*6/uL (4.60-5.80); White Blood Count 7.9 X10*3/uL (4.8-10.8)
[2022-10-31 22:42] LABS: Alanine Aminotransferase 13 U/L (0-40); Albumin Level 4.4 g/dL (3.5-5.0); Alkaline Phosphatase 70 U/L (39-117); Anion Gap 13 (12-20); Aspartate Amino Transferase 17 U/L (5-37); Bilirubin Total 0.3 mg/dL (0.0-1.0); Blood Urea Nitrogen 12 mg/dL (9-16); Calcium 9.3 mg/dL (8.4-10.2); Carbon Dioxide 25 mmol/L (22-29); Chloride 105 mmol/L (96-108); Creatinine Clr Calc Pharmacy 102.4; Estimated Glomerular Filt Rate > 60; Glucose Random 111 mg/dL (60-115); Potassium 4.2 mmol/L (3.3-5.1); Sodium 139 mmol/L (135-145); Total Protein 7.3 g/dL (6.5-8.0)
--- NOTE | 2022-10-31 23:02 | PC.NURSE ---
Pt ca&ox4, no signs of acute distress. Pt denies n/v. Pt reports 4/10 bilateral eye discomfort intermitently x1 day. Pt describes pain as a pinch or pressure. Pt reports he smoked marijuana between 3pm-9pm today. Pt reports he takes methadone and lithium for sleep.
--- NOTE | 2022-10-31 23:39 | ED_ITS ---
HPI - General Adult General Chief complaint: General Medical Stated complaint: Pressure behind both eyes Time Seen by Provider: 10/31/22 23:39 Source: patient Mode of arrival: ambulatory Limitations: no limitations History of Present Illness HPI narrative: Patient on Xarelto for DVT complaining of pain behind eyes bilateral since yesterday no vision disturbances no injury no history of migraines in the past patient feels light sensitive no nausea no vomiting visual field is normal Related Data Home Medications Medication Instructions Recorded Confirmed lithium carbonate 300 mg capsule 300 mg PO BEDTIME 03/18/22 10/26/22 methadone 5 mg tablet 2.5 mg PO DAILY 06/17/22 10/26/22 gabapentin 600 mg tablet 1,800 mg PO TID 06/29/22 10/26/22 lithium carbonate 150 mg capsule 150 mg PO DAILY 06/29/22 10/26/22 testosterone cypionate 200 mg/mL 150 mg IM USEASDIRECTD 06/29/22 10/26/22 intramuscular oil Previous Rx's Medication Instructions Recorded BIPAP heated humidified air #1 ea 02/29/20 alprostadil 20 mcg intracavernosal 2.5 mcg intra-cavernosal 3XW PRN 07/28/20 kit erectile dysfunction #1 ea hydrocortisone 2.5 % topical cream 1 appl AL BID-QID PRN hemorrhoids 03/18/22 with perineal applicator #30 grams (Proctosol HC) sennosides 8.6 mg-docusate sodium 2 tab-cap (2 x 8.6-50 mg) PO 03/18/22 50 mg tablet (Senna-S) BEDTIME 60 days #120 tabs lansoprazole 30 mg capsule,delayed 30 mg PO BID 90 days #180 caps 06/29/22 release rivaroxaban 10 mg tablet 10 mg PO DAILY 09/23/22 rivaroxaban 10 mg tablet (Xarelto) 10 mg PO DAILY #90 tabs 09/23/22 fchbctrynv-gubjgrsxasgiz-qhmalcnn 1 tab PO Q6H PRN haeadace #20 tabs 11/01/22 50 mg-325 mg-40 mg tablet Allergies Allergy/AdvReac Type Severity Reaction Status Date / Time Penicillins [PENICILLINS] Allergy Intermediate HIVES Verified 10/31/22 21:48 Review of Systems 2 Review of Systems: Yes all other systems are reviewed and are negative PMFSH Past Medical History Medical History DVT (deep venous thrombosis) Impaired glucose tolerance Peptic ulcer disease Hypercholesterolemia Hypogonadism Generalized anxiety disorder Marijuana use Erectile dysfunction Obesity (BMI 30-39.9) Insomnia GERD (gastroesophageal reflux disease) Restless leg syndrome Obstructive sleep apnea Surgical History Hx of tooth extraction History of colonoscopy Hx of endoscopy Family History Family History Father Diabetes Heart attack Mother Thyroid condition Paternal Uncle Colon cancer Family/Other Family history of multiple sclerosis Other GERD (gastroesophageal reflux disease) Social History Social History Household Members: Spouse Housing: [facility] Are you a primary hospice home care coordinator to a significant other at home: No Do you presently have visiting nurse or other home services: No Alcohol intake: current Alcohol intake frequency: 0-2 drinks per day Alcohol type: wine Patient Tobacco Use Status: Former Tobacco user Tobacco use type: Cigarette Years Smoked: quit 2013 Smoked in Last 30 Days: No e-Cigarette/Vaping Use: Never Used Second Hand Smoke Exposure: No Use of substances other than those prescribed or required for medical reasons: Yes Substance Use Type: Marijuana Advance Directives: No Advance Directives Information Provided: Yes service: No Current occupational status: employed Current occupational exposures/hazards: No Cognitive needs: No Hearing needs: No Vision needs: Yes (glasses) Physical Exam ED Vital Signs: Vital Signs - 24 hr 10/31/22 21:48 Temperature 99.1 F Pulse Rate 81 Respiratory Rate 18 Blood Pressure 151/86 H Pulse Oximetry 96 Oxygen Delivery Method Room Air BMI result Body Mass Index 32.3 Appearance: Alert. Oriented X3. No acute distress. Eyes: PERRLA, No Nystagmus fundus normal IOP 16 in the right eye 15 in left eye normal visual rangel ENT: Pharynx normal. Oral Mucosa moist no temporal artery tenderness Neck: Normal inspection. Neck supple. CVS: Normal heart rate and rhythm. Pulses normal. Respiratory: No respiratory distress. Equal air entry bilateral, no wheezing/rales/rhonchi Abdomen: Soft and nontender. Bowel sounds are present, Skin: Skin warm and dry. Normal skin color. Normal skin turgor. Extremities: No lower extremity edema. No calf tenderness Neuro: Oriented X 3. No motor deficit. No sensory deficit.No cerebellar signs , cranial nerves II-XII intact Medical Decision Making Differential Diagnosis Differential Diagnoses: The differential diagnosis associated with the presentation includes Glaucoma/ocular migraine/tension headache/CVA/normal pressure hydrocephalus/pseudotumor cerebri Lab Data MDM Lab Attestation statement: I reviewed the patient's lab results. 10/31/22 22:18 10/31/22 22:18 Labs: Lab Results 10/31/22 Range/Units 22:18 WBC 7.9 (4.8-10.8) X10*3/uL RBC 5.15 (4.60-5.80) X10*6/uL Hgb 16.2 (14.0-18.0) g/dl Hct 47.9 (42.0-52.0) % MCV 93.0 (80.0-98.0) fL MCH 31.5 (27.0-33.0) pg MCHC 33.8 (31.0-36.0) g/dl RDW 13.0 (11.0-16.0) % Plt Count 211 (160-400) X10*3/uL MPV 9.6 (9.4-12.4) fL Immature Gran % (Auto) 0.4 (0.0-0.4) % Neut % (Auto) 66.8 (45-73) % Lymph % (Auto) 22.3 (20-40) % [place] % (Auto) 7.1 (2-11) % Eos % (Auto) 2.8 (0-4) % Baso % (Auto) 0.6 (0-2) % Lymph # (Auto) 1.8 (1.2-4.9) X10*3/uL [place] # (Auto) 0.6 (0.1-1.2) X10*3/uL Eos # (Auto) 0.2 (0.0-0.4) X10*3/uL Baso # (Auto) 0.1 (0.0-0.2) X10*3/uL Abs Immat Gran (auto) 0.03 (0.00-0.03) X10*3/uL Absolute Neuts (auto) 5.3 (2.0-8.3) x10*3/uL Absolute Nucleated RBC 0.000 (0.0-0.012) X10*3/uL Nucleated RBC % (auto) 0.0 (0.0-0.2) /100WBC Sodium 139 (135-145) mmol/L Potassium 4.2 (3.3-5.1) mmol/L Chloride 105 (96-108) mmol/L Carbon Dioxide 25 (22-29) mmol/L Anion Gap 13 (12-20) BUN 12 (9-16) mg/dL Creatinine 1.01 (0.5-1.4) mg/dL Estim Creat Clear Calc 102.4 Estimated GFR > 60 Random Glucose 111 (60-115) mg/dL Calcium 9.3 (8.4-10.2) mg/dL Total Bilirubin 0.3 (0.0-1.0) mg/dL AST 17 (5-37) U/L ALT 13 (0-40) U/L Alkaline Phosphatase 70 (39-117) U/L Total Protein 7.3 (6.5-8.0) g/dL Albumin 4.4 (3.5-5.0) g/dL Radiology Impression Discussion of test interpretation with radiology: I have reviewed the radiologist's reading. Discharge Plan Discharge Clinical Impression: Ocular migraine Patient Disposition: Home, Self-Care Instructions: Ocular Migraine (ED) Additional Instructions: Take Fioricet as prescribed Follow with PCP if not better Prescriptions: New ehvaubwslc-tzxkzycqdzjln-irzl 50-325-40 mg tablet 1 tab PO Q6H PRN (Reason: haeadace) Qty: 20 0RF No Action (DME) BIPAP 18/ heated humidified air See Rx Instructions .Route .MEDSUPPLY Qty: 1 0RF Rx Instructions: As directed alprostadil 20 mcg kit 2.5 mcg intra-cavernosal 3XW PRN (Reason: erectile dysfunction) Qty: 1 0RF rivaroxaban 10 mg tablet 10 mg PO DAILY 0RF Xarelto 10 mg Tablet 10 mg PO DAILY Qty: 90 4RF Rx Instructions: for 35 days methadone 5 mg tablet 2.5 mg PO DAILY lithium carbonate 300 mg capsule 300 mg PO BEDTIME sennosides-docusate sodium [Senna-S] 8.6-50 mg tablet 2 tab-cap PO BEDTIME 60 Days Qty: 120 2RF hydrocortisone [Proctosol HC] 2.5 % cream with perineal applicator 1 appl AL BID-QID PRN (Reason: hemorrhoids) Qty: 30 0RF gabapentin 600 mg tablet 1,800 mg PO TID Patient Comments: 1200 mg 7 pm , 1200 mg 10 pm lithium carbonate 150 mg capsule 150 mg PO DAILY testosterone cypionate 200 mg/mL oil 150 mg IM USEASDIRECTD lansoprazole 30 mg capsule,delayed release(DR/EC) 30 mg PO BID 90 Days Qty: 180 3RF
[2022-11-01] MEDS: Butalb/Acetamin/Caff 50/325/40 TABLET 1 TAB PO (01:06)
--- NOTE | 2022-11-01 01:07 | PC.NURSE ---
Pt medicated per mar. at bedside. Plan of care ongoing.
== END 2022-11-01 01:58 | disposition home or self-care (01) ==
PROVIDERS: Emergency Provider Internal Medicine; PCP Internal Medicine
DX: G43.909 Migraine, unspecified, not intractable, without status migrainosus (principal); H57.13 Ocular pain, bilateral; Z79.01 Long term (current) use of anticoagulants; Z86.718 Personal history of other venous thrombosis and embolism; Z79.899 Other long term (current) drug therapy; Z87.891 Personal history of nicotine dependence
CPT/HCPCS: 36415; 70450; 80053; 85025; 96372; 99284

== ENCOUNTER → 2022-11-25 14:04 | Outpatient (BNVA) | payer BC, SELFPAY | PROVIDERS: PCP Internal Medicine; Visit Provider Internal Medicine Gastroenterology ==

== ENCOUNTER 2023-04-27 14:30 | Outpatient (AMB) | payer BC, SELFPAY ==
[2023-04-27 14:33] VITALS: BP 140/82; PULSE 67; O2SAT 98; BMI 29.1
--- NOTE | 2023-04-27 14:33 | A.OFFPC_ITS ---
Vital Signs 04/27/23 14:33 04/27/23 14:58 Height 5 ft 10 in Weight 203 lb BMI 29.1 BP 140/82 H 144/90 H Blood Pressure Location Lt brachial Lt brachial Position Sitting Sitting Pulse 67 Pulse Source Pulse Oximeter Pulse Oximetry (%) 98 Oxygen Delivery Method Room Air Intake Visit Reasons: Physical, Depression Allergies Penicillins [PENICILLINS] Allergy (Intermediate, Verified 04/27/23 14:33) HIVES Medication List - Last Reconciled 04/27/23 by Waylon Pavon MD alprostadil 2.5 mcg intra-cavernosal 3XW PRN [BIPAP heated humidified air As directed] buprenorphine-naloxone 2-0.5 mg (Suboxone) takes 0.25 mg buccally daily; place 1 strip/tab under (each) side of tongue Patient take a part of the film, so not taking whole dose of 2mg. cholecalciferol (vitamin D3) 125 mcg PO DAILY cyanocobalamin (vitamin B-12) 1,000 mcg PO DAILY gabapentin 1,200 mg PO BID lansoprazole 30 mg PO BID 90 days lithium carbonate 300 mg PO BEDTIME lithium carbonate 150 mg PO DAILY magnesium citrate 100 mg PO BID rivaroxaban (Xarelto) 15 mg PO DAILY ruxolitinib 1.5% (Opzelura) 1 appl topical BID testosterone 10 mg/0.5 gram /actuation 3 pumps transdermal QAM Tobacco use date assessed: 04/27/23 Dental Screening Dental Screen Date: 04/27/23 Did you have a dental visit in the last 12 months?: Yes Did you have a dental problem in the last 6 months where you did not have access to dental care?: No Was dental information given to patient?: Patient has dentist HPI Physical, Depression HPI Details 53-year-old overweight male with obstruc tive sleep apnea insomnia GERD generalized anxiety disorder hypercholesterolemia impaired glucose tolerance Barretts esophagus Mehta coming in for physical exam. Patient was last seen in September 2022. Patient has been seen in [facility] sleep Medicine by Dr. Scott received notes in March 2023 post for cognitive behavioral therapy in [facility] site Kali Flaherty using nitro on Suboxone causing RLS has obstructive sleep apnea on BiPAP on 2 x 600 mg of gabapentin works with a counselor went to [facility] and prescribed magnesium, 5 hydroxytryptophan mean serum phos [place] patient has been placed on oxybutynin 5 mg at bedtime Suboxone, nitro gabapentin advised to get a psychiatrist advised to stay away from medication that can worsen restless leg syndrome like SSRI, SNRI benzo advised against in [facility] supplements advised to restart lithium followed by Dr. Iggy Lambert. Review of the notes also in October was seen by hematology oncology for the left leg DVT presently on Xarelto advised to continue with Xarelto 10 mg once a day endoscopy last done for upper endoscopy 10/02/2019 Barretts Patient also has seen the rheumatology for the positive SAMANTHA but examination was negative. Noted also in September 2022 had an ultrasound of the thyroid revealing mild thyromegaly but no nodules. Psychologist Kali flaherty, Psychiatrist in [facility] May 16, 2023 [facility] Medical History (Updated 04/27/23 @ 15:06 by Waylon Pavon MD) DVT (deep venous thrombosis) Impaired glucose tolerance Peptic ulcer disease Hypercholesterolemia Hypogonadism Generalized anxiety disorder Marijuana use Erectile dysfunction Obesity (BMI 30-39.9) Insomnia GERD (gastroesophageal reflux disease) Restless leg syndrome Obstructive sleep apnea Surgical History (Updated 11/08/22 @ 16:25 by Kimberly Parra MD) Hx of tooth extraction History of colonoscopy Hx of endoscopy Family History Father Diabetes Heart attack Mother Thyroid condition Paternal Uncle Colon cancer Family/Other Family history of multiple sclerosis Other GERD (gastroesophageal reflux disease) Social History (Updated 04/27/23 @ 15:08 by Waylon Pavon MD) Household Members: [facility] Are you a primary personal care aide to a significant other at home: No Do you presently have visiting nurse or other home services: No Alcohol intake: current Alcohol intake frequency: 0-2 drinks per day Alcohol type: wine Comment: 2-3 drinks of etoh a week Patient Tobacco Use Status: Former Tobacco user Tobacco use type: Cigarette Years Smoked: quit 2012 rarely marijuana e-Cigarette/Vaping Use: Never Used Second Hand Smoke Exposure: No Substance Use Type: Marijuana service: No Current occupational status: employed Current occupational exposures/hazards: No Cognitive needs: No Hearing needs: No Vision needs: Yes (glasses) Questionnaire PHQ-9 Over the last 2 weeks, how often have you been bothered by any of the following problems? 1. Little interest or pleasure in doing things: several days 2. Feeling down, depressed, or hopeless: several days 3. Trouble falling or staying asleep, or sleeping too much: several days 4. Feeling tired or having little energy: several days 5. Poor appetite or overeating: not at all 6. Feeling bad about yourself - or that you are a failure or have let yourself or your family down: not at all 7. Trouble concentrating on things, such as reading the newspaper or watching television: several days 8. Moving or speaking so slowly that other people could have noticed. Or the opposite - being so fidgety or restless that you have been moving around a lot more than usual: not at all 9. Thoughts that you would be better off or of hurting yourself in some way: not at all Total score: 5 Depression Screening Interpretation: Positive Depression Screening Done: Yes Source: Developed by Drs. Iggy Sandoval, Myrna Valencia, Mj Tripp and colleagues, with an educational teo from [employer]. Thrive Questionnaire Date Thrive assessed: 04/27/23 I am a: Patient What is your living situation today?: I have a steady place to live Within the past 12 months, did the food you bought not last and you didn't have the money to get more?: Never true Within the past 12 months, did you worry whether your food would run out before you got money to buy more?: Never true Do you have trouble paying for medicines?: No Do you have trouble getting transportation to medical appointments?: No Do you have trouble paying your heating and electricity bill?: No Do you have trouble taking care of your child, family member or friend?: No Do you have trouble with day-to-day activities such as bathing, preparing meals, shopping, managing finances, etc.?: No Are you currently unemployed and looking for a job?: No Are you interested in more education?: No Currently or been in a relationship where the following occur: no concerns reported THRIVE Score: 0 AUDIT C Alcohol Use Questionnaire (AUDIT-C) 1. How often do you have a drink containing alcohol?: 4 or more times a week 2. How many drinks containing alcohol do you have on a typical day when you are drinking?: 1 or 2 3. How often do you have six or more drinks on one occasion?: Never Total Score: 4 Score Reviewed/Action Taken: Yes DARRELL-7 AMB Questionnaire DARRELL-7 Date DARRELL - 7 assessed: 04/27/23 Feeling nervous, anxious, or on edge: 1 = Several days Not being able to stop or control worryin = Several days Worrying too much about different things: 1 = Several days Trouble relaxin = Several days Being so restless that it is hard to sit still: 1 = Several days Becoming easily annoyed or irritable: 1 = Several days Feeling afraid as if something awful might happen: 1 = Several days Total DARRELL-7 score (0-4 normal; 5-9 mild; 10-14 moderate; 15-21 severe): 7 Source: Developed by Drs. Iggy Sandoval, Myrna Valencia, Mj Tripp and colleagues, with an educational teo from [employer]. Review of Systems Const Denies poor appetite and Denies weakness Eyes Denies no additional complaints ENT Reports Normal hearing present, Denies dizziness, Denies nasal congestion, Denies tinnitus and Denies sore throat Card Denies chest pain, Denies syncope, Denies rapid heart rate and Denies dyspnea Resp Denies cough and Denies dyspnea GI Denies change in stool character, Reports constipation, Denies diarrhea, Denies nausea and Denies vomiting Denies dysuria and Denies urinary frequency Neuro Reports Normal hearing present, Denies confusion, Denies dizziness, Denies syncope and Denies weakness Psych Denies confusion Physical exam (Primary Care) Vital Signs: Last Vital Signs Pulse 67 04/27/23 14:33 BP 140/82 H 04/27/23 14:33 Pulse Ox 98 04/27/23 14:33 Oxygen Delivery Method Room Air 04/27/23 14:33 BMI result Body Mass Index 29.1 Tobacco/Smoking Status: Tobacco use Status Tobacco use date assessed 04/27/23 04/27/23 14:37 Patient Tobacco Use Status Former Tobacco user 04/27/23 14:37 Tobacco use type Cigarette 04/27/23 14:37 e-Cigarette/Vaping Use Never Used 04/27/23 14:37 PHQ-9: PHQ-9 Score PHQ-9: Total score 5 04/27/23 14:49 Depression Screening Interpretation: Positive Thrive Assessment: Date of Thrive Assessment Date Thrive assessed 04/27/23 04/27/23 14:37 Currently or been in a relationship where the following occur: no concerns reported Const General: No confusion Orientation/consciousness: No confusion HENMT Head: Yes normocephalic Ears: external ears normal and TM's normal bilaterally Face and sinus: Yes normal facial exam Mouth: moist mucous membranes Throat: Yes tonsils normal Eyes Conjunctivae: conjunctivae normal Pupils: Equal, round and reactive pupils present and Pupil accommodation reflex normal Direct Ophthalmoscopy: normal light reflex Neck Neck: No lymphadenopathy Thyroid: Thyroid normal Chest Chest palpation & inspection: normal inspection of the chest Resp Effort & Inspection: normal respiratory effort and no audible wheezes Auscultation: clear to auscultation bilaterally, no crackles, no wheezes and lung sounds not diminished Cardio Rate: regular rate Rhythm: regular rhythm Peripheral pulses: radial pulses present and dorsalis pedis present GI Other: guaiac negative prostate N Palpation (GI): no masses Auscultation: normal bowel sounds and normoactive bowel sounds Male General Exam: Yes normal external exam Skin General skin exam: no rashes or lesions noted Rashes: no rashes Neuro General: No confusion Cranial nerves: Yes Equal, round and reactive pupils present and Yes Normal hearing present Cognition (Neuro): normal cognition Gait exam (Neuro): Normal gait present Motor exam (neuro): 5/5 motor strength present throughout Deep tendon reflexes (DTR's): Right brachioradialis reflex intensity grade: 2+, Left brachioradialis reflex intensity grade: 2+, Right patellar reflex intensity grade: 2+ and Left patellar reflex intensity grade: 2+ Extrem General: No edema Assessment and Plan Assessment & Plan (1) Annual physical exam: Code(s): Z00.00 - Encounter for general adult medical examination without abnormal findings (2) Obstructive sleep apnea: Code(s): G47.33 - Obstructive sleep apnea (adult) (pediatric) Plan: Patient has been working with the neurologist for the obstructive sleep apnea presently on BiPAP and has been compliant more than 4 hours a night. (3) GERD (gastroesophageal reflux disease): Code(s): K21.9 - Gastro-esophageal reflux disease without esophagitis Plan: Avoid the foods that causes that usually spicy foods, tomato products, juices, coffee, soda and foods that your sensitive to. After eating do not lie down, allow 3-4 hours before in lie down. And keep the head of bed above 30 degrees to avoid the acid from going up. (4) Insomnia: Code(s): G47.00 - Insomnia, unspecified Plan: Patient has been working with the neurologist (5) Generalized anxiety disorder: Code(s): F41.1 - Generalized anxiety disorder Plan: Continue with present medication and advised to be seen by psychiatrist (6) Hypercholesterolemia: Code(s): E78.00 - Pure hypercholesterolemia, unspecified Plan: Avoid fried foods, chicken skin, eggs, butter margarine, pastries and meat. Be it pork or beef they have a lot of cholesterol LDL goal of less than 130 and triglyceride of less than 150 (7) Impaired glucose tolerance: Code(s): R73.02 - Impaired glucose tolerance (oral) Plan: Decrease the amount of carbohydrate intake, pasta, bread, rice and potatoes are all sugar and that is aside from all the sweet stuff, remember that fruits are good but they are Sweet also. (8) Tubular adenoma of colon: Comment: 01/04 Three small to medium sized polyps removed during colonoscopy Moderate diverticulosis seen in the left colon Moderate hemorrhoids on retroflexed exam. Repeat Colon in 3 yrs (due 01/07). Code(s): D12.6 - Benign neoplasm of colon, unspecified Plan: Patient is due for colonoscopy had the previous colonoscopy December 2020 (9) Left leg DVT: Comment: History of hormone intake January 2019, May 2019 Code(s): I82.402 - Acute embolism and thrombosis of unspecified deep veins of left lower extremity Plan: Patient follows up with Hematology-Oncology and on Xarelto 10 mg once a day (10) MEHTA (nonalcoholic steatohepatitis): Comment: 09/2018 normal LFT's, ferritin NML 221, Neg Hep A,B, C, neg autoimmune work up, AFP 2.0, Fibrosis score F0 US 05/2018 heptic steatosis US of abd IMPRESSION: 1. Hepatic steatosis without any focal lesion. The tail of the pancreas and proximal abdominal aorta are suboptimally visualized. 2. The gallbladder is contracted. 3. Extrarenal kidney pelvis versus mild hydronephrosis left kidney. 4. Small splenule. Code(s): K75.81 - Nonalcoholic steatohepatitis (MEHTA) Plan: Low-fat diet and exercise (11) Pate's esophagus determined by biopsy: Comment: 2019 EGD metaplasia but no dysplasia December 2020 Code(s): K22.70 - Pate's esophagus without dysplasia Plan: Avoid the foods that causes that usually spicy foods, tomato products, juices, coffee, soda and foods that your sensitive to. After eating do not lie down, allow 3-4 hours before in lie down. And keep the head of bed above 30 degrees to avoid the acid from going up. (12) Restless leg syndrome: Code(s): G25.81 - Restless legs syndrome (13) Vitiligo: Code(s): L80 - Vitiligo Medications: Changed From rivaroxaban (Xarelto) for 35 days 10 mg PO DAILY 90 tabs 4RF To rivaroxaban (Xarelto) for 35 days 15 mg PO DAILY Coding Level of Care Code Est Pt Prev Care 40-64y([id number]) Diagnoses Annual physical exam Z00.00 Obstructive sleep apnea G47.33 GERD (gastroesophageal reflux disease) K21.9 Insomnia G47.00 Generalized anxiety disorder F41.1 Hypercholesterolemia E78.00 Impaired glucose tolerance R73.02 Tubular adenoma of colon D12.6 Left leg DVT I82.402 MEHTA (nonalcoholic steatohepatitis) K75.81 Pate's esophagus determined by biopsy K22.70 Restless leg syndrome G25.81 Vitiligo L80
[2023-04-27 14:58] VITALS: BP 144/90
== END 2023-04-27 15:30 | disposition home or self-care (01) ==
PROVIDERS: PCP Internal Medicine; Visit Provider Internal Medicine
DX: Z00.00 Encounter for general adult medical examination without abnormal findings (principal); G47.33 Obstructive sleep apnea (adult) (pediatric); K21.9 Gastro-esophageal reflux disease without esophagitis; I82.402 Acute embolism and thrombosis of unspecified deep veins of left lower extremity; G47.00 Insomnia, unspecified; F41.1 Generalized anxiety disorder; E78.00 Pure hypercholesterolemia, unspecified; R73.02 Impaired glucose tolerance (oral); D12.6 Benign neoplasm of colon, unspecified; K75.81 Nonalcoholic steatohepatitis (NASH); K22.70 Barrett's esophagus without dysplasia; G25.81 Restless legs syndrome
CPT/HCPCS: 99396

== ENCOUNTER 2023-05-09 12:36 | Outpatient (REF) | payer BC, SELFPAY ==
[2023-05-09 16:23] LABS: Hematocrit 49.8 % (42.0-52.0); Hemoglobin 16.6 g/dl (14.0-18.0); Mean Corpuscular HGB Conc 33.3 g/dl (31.0-36.0); Mean Corpuscular Hemoglobin 31.3 pg (27.0-33.0); Mean Corpuscular Volume 93.8 fL (80.0-98.0); Mean Platelet Volume 9.5 fL (9.4-12.4); Platelet Count 222 X10*3/uL (160-400); Red Blood Count 5.31 X10*6/uL (4.60-5.80); Red Cell Distribution Width 12.6 % (11.0-16.0); White Blood Count 6.6 X10*3/uL (4.8-10.8)
[2023-05-12 08:41] LABS: Sex Hormone Binding Globulin 39
[2023-05-13 16:44] LABS: Testosterone, Free 15.4 pg/mL (35.0-155.0); Testosterone, Total 121 ng/dL (250-1100)
== END 2023-05-09 12:37 | disposition home or self-care (01) ==
LOC: HO.HMGCLDS 12:36
PROVIDERS: PCP Internal Medicine; Visit Provider Internal Medicine
DX: E29.1 Testicular hypofunction (principal)
CPT/HCPCS: 36415; 84270; 84402; 84403; 85027

== ENCOUNTER 2023-05-17 15:04 | Outpatient (REF) | payer BC, SELFPAY ==
[2023-05-17 16:29] LABS: Hemoglobin 15.4 g/dl (14.0-18.0); Mean Corpuscular HGB Conc 34.2 g/dl (31.0-36.0); Mean Corpuscular Hemoglobin 31.5 pg (27.0-33.0); Platelet Count 222 X10*3/uL (160-400); Red Blood Count 4.89 X10*6/uL (4.60-5.80); Red Cell Distribution Width 12.4 % (11.0-16.0); White Blood Count 6.5 X10*3/uL (4.8-10.8)
[2023-05-17 16:45] LABS: Lithium 0.25 mmol/L (0.60-1.20)
[2023-05-17 16:59] LABS: Carbon Dioxide 29 mmol/L (22-29); Chloride 104 mmol/L (96-108); Estimated Glomerular Filt Rate > 60; Iron 100 mcg/dL (45-160); Percent Iron Saturation 40 % (15-50); Potassium 4.6 mmol/L (3.3-5.1); Sodium 140 mmol/L (135-145); Total Iron Binding Capacity 249 mcg/dL (228-428); Unsaturated Iron Binding 149 ug/dL
[2023-05-17 17:14] LABS: Ferritin 1044 ng/mL (20-250)
[2023-05-18 17:29] LABS: Transferrin 213 mg/dL (188-341)
== END 2023-05-17 15:05 | disposition home or self-care (01) ==
LOC: HO.HMGCLDS 15:04
PROVIDERS: PCP Internal Medicine; Visit Provider Student in an Organized Health Care Education/Training Program
DX: D64.9 Anemia, unspecified (principal); G25.81 Restless legs syndrome
CPT/HCPCS: 36415; 80178; 82374; 82435; 82565; 82728; 83540; 84132; 84295; 84466; 85027

== ENCOUNTER 2023-07-04 14:56 | Outpatient (REF) | payer BC, SELFPAY ==
[2023-07-04 16:47] LABS: Hemoglobin 16.2 g/dl (14.0-18.0); Mean Corpuscular HGB Conc 33.8 g/dl (31.0-36.0); Mean Corpuscular Hemoglobin 32.3 pg (27.0-33.0); Mean Corpuscular Volume 95.8 fL (80.0-98.0); Platelet Count 219 X10*3/uL (160-400); Red Blood Count 5.01 X10*6/uL (4.60-5.80); Red Cell Distribution Width 13.9 % (11.0-16.0); White Blood Count 8.5 X10*3/uL (4.8-10.8)
[2023-07-08 16:59] LABS: Testosterone, Free 257.9 pg/mL (35.0-155.0); Testosterone, Total 1417 ng/dL (250-1100)
== END 2023-07-04 14:57 | disposition home or self-care (01) ==
LOC: HO.HMGCLDS 14:56
PROVIDERS: PCP Internal Medicine; Visit Provider Internal Medicine
DX: E29.1 Testicular hypofunction (principal)
CPT/HCPCS: 36415; 84402; 84403; 85027

== ENCOUNTER 2023-07-21 13:09 | Outpatient (AMB) | payer BC, SELFPAY ==
--- NOTE | 2023-07-21 13:16 | A.OFFVIS_ITS ---
Vital Signs 07/21/23 13:22 07/21/23 13:22 Height 5 ft 10 in 5 ft 10 in Weight 223 lb BMI 32.0 BP 130/56 L Blood Pressure Location Lt brachial Position Sitting Pulse 77 Intake Visit Reasons: 1year follow up Intake Note: Patient follow up for Barretts esophagus Patient cc: heartburn on and off, and somw swallowing problems. Denies any other GI issues. Home Aid Required: No Accompanied by: Self / Same As Patient Allergies Penicillins [PENICILLINS] Allergy (Intermediate, Verified 07/21/23 13:25) HIVES Medication List - Last Reconciled 07/21/23 by Rl Hernandez MD alprostadil 2.5 mcg intra-cavernosal 3XW PRN [BIPAP heated humidified air As directed] buprenorphine-naloxone 2-0.5 mg (Suboxone) takes 0.25 mg buccally daily; place 1 strip/tab under (each) side of tongue Patient take a part of the film, so not taking whole dose of 2mg. cholecalciferol (vitamin D3) 125 mcg PO DAILY cyanocobalamin (vitamin B-12) 1,000 mcg PO DAILY gabapentin 1,800 mg PO BID lansoprazole 30 mg PO BID 90 days magnesium citrate 100 mg PO BID phenylephrine HCl 30 mg IM Q10M PRN rivaroxaban (Xarelto) 10 mg PO DAILY ruxolitinib 1.5% (Opzelura) 1 appl topical BID testosterone cypionate mg IM trazodone 50 mg PO BEDTIME HPI HPI 1year follow up: Details: GI clinic visit for this 53 YM for fu of GERD, Barretts esophagus, WEINSTEIN and colon polyps IMAGING STUDIES:? 11/2020 ABD US SHOWED: Diffusely increased echogenicity of the liver without focal mass. Findings consistent with fatty infiltration. ENDOSCOPIC STUDIES: 12/2020 EGD AND COLON SHOWED: ESOPHAGUS:? GE junction at 40 cms.? Two 1 cms tongues of Pate's as noted on previous EGD - biopsies were obtained. STOMACH: A few 5-10 mm benign appearing polyps in the gastric fundus and body - biopsied. Mild gastric erythema - biopsies were obtained. Colonoscopy Findings:? Three small to medium sized polyps removed Moderate diverticulosis seen in the left colon Moderate hemorrhoids on retroflexed exam. Plan:? Patient has an appointment on 01/19/21 in the GI Clinic with? Audrey Wing NP? . Repeat Colonoscopy interval based on path results - in 3 years if polyps are adenomatous and 10 years if polyps are hyperplastic. Repeat EGD in 3 -4 yrs if no dysplasia on esophageal biopsies TODAY'S VISIT: Patient cc: heartburn on and off, and somw swallowing problems. Denies any other GI issues. Takes Lansoprazole in the am and takes a 2nd dose later in the evening if he has symptoms. Having increased symptoms today since he overate 2 days ago and stayed on a liquid diet yesterday. GERD symptoms well controlled with Lansoprazole. Did not need to use the carafate. Takes vitamin-D 2000 units daily for vitamin-D deficiency. Difficulty sleeping due to restless leg syndrome and feels tired during the day. Uses CPAP for sleep apnea. 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 Has less alcohol in recent years than in the past. Wt gain since he was off the testosterone Occasional constipation. Patient denies symptoms of heartburn, dysphagia, nausea, vomiting, change in appetite or weight.? Denies recent change in bowel habits, constipation, diarrhea, black stools or rectal bleeding. 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 Patient denies known family history of colon polyps, colon cancer or other GI malignancies. Dad's brother of cancer (smoker) unsure what kind. PAST GI HISTORY BY REVIEW OF MEDICAL RECORDS: 11/2020 LAST SEEN BY AUDREY WING NP: He continues to do well on his Aciphex 20mg bid for his SSBE. His last EGD was in 2019 so? he is due for repeat. This leads me to discuss a screening colonoscopy which she has not ever had before this would be his 1st.? He needs quite a lot of Education about this as at 1st he is skeptical feeling that this may be ?a new or unproven thing.?? I quote? him several sources in say this is a well-established practice and in fact he is behind in his preventative care in terms of this with new guidelines saying we should be starting at age 45. I tell him that he can look up the guidelines from the [place] [employer], the [employer] [place], or even the [place] [employer] on line if he wishes to reassure himself that this is a well-established and researched preventative measure.? After thorough explanation he does consent to the procedure. He also had extensive questions about his fatty liver and whether not he would always need six-month follow ups.? I educate him that that depends on how much weight he can lows as to weight loss, avoiding alcohol controlling blood sugars are the triad of most important behavior some modify so that he does not progress to liver cancer or cirrhosis.? I again reminded him that 20-30% of people with fatty liver can go on to develop these conditions if they are not careful about her diet and lifestyle practices.? With this he is agreeable to updating his lab work and getting an ultrasound once it is scheduled. He had nausea and vomiting once for a surgery, but has not had trouble with propofol. He has occasional CIC but it is well controlled on colace. He will go today for his labs for his WEINSTEIN and we will schedule an US to catch up on his monitoring. He has insomnia and part of this is driven by severe hunger after about 2 AM. This may effect his scheduling. No ID problems. There is no known FHX of CRC or?polyp [facility] Medical History DVT (deep venous thrombosis) Impaired glucose tolerance Peptic ulcer disease Hypercholesterolemia Hypogonadism Generalized anxiety disorder Marijuana use Erectile dysfunction Obesity (BMI 30-39.9) Insomnia GERD (gastroesophageal reflux disease) Restless leg syndrome Obstructive sleep apnea Surgical History Hx of tooth extraction History of colonoscopy Hx of endoscopy Family History Father Diabetes Heart attack Mother Thyroid condition Paternal Uncle Colon cancer Family/Other Family history of multiple sclerosis Other GERD (gastroesophageal reflux disease) Social History Household Members: Spouse Housing: Condominium Are you a primary school child care attendant to a significant other at home: No Do you presently have visiting nurse or other home services: No Alcohol intake: current Alcohol intake frequency: 0-2 drinks per day Alcohol type: wine Comment: 2-3 drinks of etoh a week Patient Tobacco Use Status: Former Tobacco user Tobacco use type: Cigarette Years Smoked: quit 2012 rarely marijuana e-Cigarette/Vaping Use: Never Used Second Hand Smoke Exposure: No Substance Use Type: Marijuana service: No Current occupational status: employed Current occupational exposures/hazards: No Cognitive needs: No Hearing needs: No Vision needs: Yes (glasses) Review of Systems Const All systems reviewed & are unremarkable except as noted in HPI and below Physical Exam Vital Signs: Last Vital Signs Pulse 77 07/21/23 13:22 BP 130/56 L 07/21/23 13:22 BMI result Body Mass Index 32.0 Const General: healthy appearing and no acute distress Nutritional Appearance: obese Orientation/consciousness: patient oriented x3 Limitations: no limitations HEENT Head: Yes normal to inspection Ears: hearing grossly normal bilaterally Eyes Sclerae: sclerae normal Pupils: Equal, round and reactive pupils present Neck Neck: Yes normal visual inspection Chest Chest palpation & inspection: normal inspection of the chest Resp Effort & Inspection: normal respiratory effort Auscultation: clear to auscultation bilaterally Cardio Palpation: normal PMI Rate: regular rate Rhythm: regular rhythm Heart sounds: S1 normal heart sound present, S2 normal heart sound present and no murmurs GI Palpation (GI): Soft to palpation, nontender and No hepatosplenomegaly present Auscultation: normal bowel sounds Rectal Exam - Male: Yes deferred Skin General skin exam: no rashes or lesions noted Neuro General: patient oriented x3, gait normal and moves all extremities Cranial nerves: Yes Equal, round and reactive pupils present Psych Appearance: grossly normal Mental Status: mental status grossly normal Assessment & Plan Assessment & Plan (1) Pate's esophagus determined by biopsy: Comment: 2018 EGD metaplasia but no dysplasia December 2020 Code(s): K22.70 - Pate's esophagus without dysplasia Category: Medical (2) WEINSTEIN (nonalcoholic steatohepatitis): Comment: 09/2018 normal LFT's, ferritin NML 221, Neg Hep A,B, C, neg autoimmune work up, AFP 2.0, Fibrosis score F0 US 05/2018 heptic steatosis US of abd IMPRESSION: 1. Hepatic steatosis without any focal lesion. The tail of the pancreas and proximal abdominal aorta are suboptimally visualized. 2. The gallbladder is contracted. 3. Extrarenal kidney pelvis versus mild hydronephrosis left kidney. 4. Small splenule. Code(s): K75.81 - Nonalcoholic steatohepatitis (WEINSTEIN) Category: Medical (3) GERD (gastroesophageal reflux disease): Code(s): K21.9 - Gastro-esophageal reflux disease without esophagitis Category: Medical (4) Tubular adenoma of colon: Comment: 01/04 Three small to medium sized polyps removed during colonoscopy Moderate diverticulosis seen in the left colon Moderate hemorrhoids on retroflexed exam. Repeat Colon in 3 yrs (due 01/07). Code(s): D12.6 - Benign neoplasm of colon, unspecified Category: Medical (5) Dysphagia, pharyngoesophageal phase: Code(s): R13.14 - Dysphagia, pharyngoesophageal phase Category: Medical Plan 53 YM for fu of GERD, Barretts esophagus, WEINSTEIN and colon polyps Heartburn is well controlled with medication. Has less alcohol in recent years than in the past. Wt gain since he was off the testosterone Occasional constipation. Quitted smoking 10 yrs ago Uses Marijuana for RLS On chronic anticoagulation for 2 DVTs in left upper leg. 12/2020 EGD AND COLON SHOWED: ESOPHAGUS:? GE junction at 40 cms.? Two 1 cms tongues of Pate's as noted on previous EGD - biopsies were obtained. STOMACH: A few 5-10 mm benign appearing polyps in the gastric fundus and body - biopsied. Mild gastric erythema - biopsies were obtained. Colonoscopy Findings:? Three small to medium sized polyps removed Moderate diverticulosis seen in the left colon Moderate hemorrhoids on retroflexed exam. Plan:? Patient has an appointment on 01/19/21 in the GI Clinic with? Audrey Wing NP? . Repeat EGD and Colonoscopy interval based on path results - in 3 years if polyps are adenomatous. 07/21/23 GERD symptoms well controlled with Lansoprazole. Did not need to use the carafate. Takes vitamin-D 2000 units daily for vitamin-D deficiency. Difficulty sleeping due to restless leg syndrome and feels tired during the day. Uses CPAP for sleep apnea. Pt advised to schedule an EGD (FU of Pate's) and colonoscopy (FU of polyps) - Scheduled on 12/19/23 FU in 8 months Medications: New bisacodyl (Dulcolax (bisacodyl)) Take 4 tablets at 12 pm the day before colonoscopy appointment 20 mg (4 x 5 mg) PO ONCE 1 day 4 tabs 0RF colon prep polyethylene glycol 3350 (Miralax) Mix Miralax with 64 oz(8 cups) of Crystal light. Take 2 tablets of Dulcolax qt 12 pm. Wait to have your 1st bowel movement, then begin drinking Miralax. Drink a glass of Miralax every 10-15 minutes until you are finished. You will drink at least another 4 cups of clear liquid of your choice over the next 2 hours. Please drink as many clear liquids as possible You may have clear liquids up to four hours before your procedure 17 grams PO DAILY 1 day 238 grams 0RF Coding Level of Care Code Est Pt Level 4 (73059) Diagnoses Pate's esophagus determined by biopsy K22.70 WEINSTEIN (nonalcoholic steatohepatitis) K75.81 GERD (gastroesophageal reflux disease) K21.9 Tubular adenoma of colon D12.6 Dysphagia, pharyngoesophageal phase R13.14 Time Spent (min) 23
[2023-07-21 13:22] VITALS: BP 130/56; PULSE 77; BMI 32.0
== END 2023-07-21 13:56 | disposition home or self-care (01) ==
PROVIDERS: PCP Internal Medicine; Visit Provider Internal Medicine Gastroenterology
DX: K22.70 Barrett's esophagus without dysplasia (principal); K75.81 Nonalcoholic steatohepatitis (NASH); K21.9 Gastro-esophageal reflux disease without esophagitis; D12.6 Benign neoplasm of colon, unspecified; R13.14 Dysphagia, pharyngoesophageal phase
CPT/HCPCS: 99214

== ENCOUNTER → 2023-07-21 13:09 | Outpatient (BNVA) | payer BC, SELFPAY | PROVIDERS: PCP Internal Medicine; Visit Provider Internal Medicine Gastroenterology ==

== ENCOUNTER 2023-08-31 13:18 | Outpatient (REF) | payer BC, SELFPAY ==
[2023-08-31 15:54] LABS: MANUAL DIFF FLAG NO
[2023-08-31 16:08] LABS: Basophils Percent Auto 0.7 % (0-2); Eosinophils Absolute Auto 0.2 X10*3/uL (0.0-0.4); Eosinophils Percent Auto 3.3 % (0-4); Hematocrit 50.8 % (42.0-52.0); Hemoglobin 16.7 g/dl (14.0-18.0); Imm Gran Abs Auto 0.02 X10*3/uL (0.00-0.03); Imm Gran Pct Auto 0.3 % (0.0-0.4); Lymphocytes Absolute Auto 1.5 X10*3/uL (1.2-4.9); Lymphocytes Percent Auto 25.8 % (20-40); Mean Corpuscular HGB Conc 32.9 g/dl (31.0-36.0); Mean Corpuscular Hemoglobin 31.9 pg (27.0-33.0); Mean Corpuscular Volume 97.1 fL (80.0-98.0); Mean Platelet Volume 10.2 fL (9.4-12.4); Monocytes Absolute Auto 0.5 X10*3/uL (0.1-1.2); Monocytes Percent Auto 8.9 % (2-11); Neutrophils Absolute Auto 3.7 x10*3/uL (2.0-8.3); Platelet Count 198 X10*3/uL (160-400); Red Blood Count 5.23 X10*6/uL (4.60-5.80); Red Cell Distribution Width 12.2 % (11.0-16.0)
[2023-09-05 21:58] LABS: Testosterone, Total 503 ng/dL (250-1100)
== END 2023-08-31 13:19 | disposition home or self-care (01) ==
LOC: HO.HMGCLDS 13:18
PROVIDERS: PCP Internal Medicine; Visit Provider Internal Medicine
DX: E29.1 Testicular hypofunction (principal)
CPT/HCPCS: 36415; 84402; 84403; 85025

== ENCOUNTER 2023-10-04 15:58 | Outpatient (REF) | payer BC, SELFPAY ==
--- NOTE | ~2023-10-04 | XR_ITS ---
EXAMINATION: XR NASAL BONES CLINICAL INFORMATION: Nasal congestion. COMPARISON: None available. TECHNIQUE: 3 views of the nasal bones were obtained. FINDINGS: There are no fractures or dislocations. No bone, joint or soft tissue abnormality is demonstrated. XR/XR nasal bones min 3V IMPRESSION: Unremarkable examination. Electronically signed by: Amadou Jones MD 10/27/2023 11:15 PM EDT
== END 2023-10-04 15:59 | disposition home or self-care (01) ==
LOC: HO.XRAY 15:58
PROVIDERS: Absent Provider Internal Medicine; PCP Internal Medicine; Visit Provider Internal Medicine
DX: R09.81 Nasal congestion (principal); R79.89 Other specified abnormal findings of blood chemistry
CPT/HCPCS: 70160

== ENCOUNTER 2023-10-31 14:15 | Outpatient (AMB) | payer BC, SELFPAY ==
--- NOTE | 2023-10-31 14:20 | A.OFFPC_ITS ---
Vital Signs 10/31/23 14:38 Height 5 ft 10 in Weight 214 lb BMI 30.7 BP 120/66 Blood Pressure Location Lt brachial Position Sitting Pulse 74 Pulse Source Pulse Oximeter Pulse Oximetry (%) 97 Oxygen Delivery Method Room Air Intake Visit Reasons: 6 Month Follow Up Check Processor Required: No Accompanied by: Self / Same As Patient Allergies Penicillins [PENICILLINS] Allergy (Intermediate, Verified 10/31/23 14:38) HIVES Tobacco use date assessed: 04/27/23 Dental Screening Dental Screen Date: 04/27/23 HPI 6 Month Follow Up HPI Details 53-year-old obese male(noted 9 lb weight loss) with obstructive sleep apnea insomnia GERD generalized anxiety disorder hypercholesterolemia impaired glucose tolerance with a history of left leg DVT nonalcoholic steatohepatitis Barretts esophagus restless leg syndrome coming in for follow-up. Last seen in 05/04/2023. Patient's colonoscopy is up-to-date 01/03/2021. EGD was 01/03/2021. Patient is scheduled to have an EGD in December 2023. Review of the notes had blood work done in October free cortisol was mildly elevated normal of 3.5-45 Issac results are 47. Received notes from Dr. Tonia Scott [facility] sleep Medicine placed on buprenorphine naloxone 1/3 film sublingual daily for restless leg gabapentin ipratropium nasal sprays oxybutynin 20 mg q.day. Stopped trazodone placed Quivivic 25 mg to increase to 50 mg if not better can retry trazodone 150 mg but if no better.. Continue with behavioral therapy. Patient was also given melatonin. As for the DVT left leg patient follows up with Hematology-Oncology advised rivaroxaban 10 mg maintenance dose. Received notes from Psychiatry also diagnosis of depression anxiety insomnia cannabis and ETOH abuse delayed sleep phase syndrome. Persistent depressive disorder GERD, chronic insomnia, cannabis abuse ETOH abuse other specified trauma stressor ongoing cognitive behavioral therapy. Vortioxetine, if ineffective Auvelity otherwise retrialing Zoloft or duloxetine. MEd for psychiatry held and wants to work for sleep [facility] Medical History (Updated 10/31/23 @ 15:08 by Waylon Pavon MD) DVT (deep venous thrombosis) Impaired glucose tolerance Peptic ulcer disease Hypercholesterolemia Hypogonadism Generalized anxiety disorder Marijuana use Erectile dysfunction Obesity (BMI 30-39.9) Insomnia GERD (gastroesophageal reflux disease) Restless leg syndrome Obstructive sleep apnea Surgical History Hx of tooth extraction History of colonoscopy Hx of endoscopy Family History Father Diabetes Heart attack Mother Thyroid condition Paternal Uncle Colon cancer Family/Other Family history of multiple sclerosis Other GERD (gastroesophageal reflux disease) Social History Household Members: [facility] Are you a primary multi care technician to a significant other at home: No Do you presently have visiting nurse or other home services: No Alcohol intake: current Alcohol intake frequency: 0-2 drinks per day Alcohol type: wine Comment: 2-3 drinks of etoh a week Patient Tobacco Use Status: Former Tobacco user Tobacco use type: Cigarette Years Smoked: quit 2013 rarely marijuana e-Cigarette/Vaping Use: Never Used Second Hand Smoke Exposure: No Substance Use Type: Marijuana service: No Current occupational status: employed Current occupational exposures/hazards: No Cognitive needs: No Hearing needs: No Vision needs: Yes (glasses) Questionnaire Thrive Questionnaire Date Thrive assessed: 04/27/23 Are you currently unemployed and looking for a job?: No DARRELL-7 AMB Questionnaire DARRELL-7 Date DARRELL - 7 assessed: 04/27/23 Source: Developed by Drs. Iggy Sandoval, Myrna Valencia, Mj Tripp and colleagues, with an educational teo from [employer]. Physical exam (Primary Care) Vital Signs: Last Vital Signs Pulse 74 10/31/23 14:38 BP 120/66 10/31/23 14:38 Pulse Ox 97 10/31/23 14:38 Oxygen Delivery Method Room Air 10/31/23 14:38 BMI result Body Mass Index 30.7 Tobacco/Smoking Status: Tobacco use Status Tobacco use date assessed 04/27/23 10/31/23 14:22 Patient Tobacco Use Status Former Tobacco user 10/31/23 14:22 Tobacco use type Cigarette 10/31/23 14:22 e-Cigarette/Vaping Use Never Used 10/31/23 14:22 Thrive Assessment: Date of Thrive Assessment Date Thrive assessed 04/27/23 10/31/23 14:22 Const General: alert; No acute distress Eyes Conjunctivae: conjunctivae normal Resp Auscultation: clear to auscultation bilaterally Cardio Rate: regular rate Rhythm: regular rhythm GI Inspection: Yes normal to inspection Extrem General: Yes normal to inspection and No edema Assessment and Plan Assessment & Plan (1) Obstructive sleep apnea: Code(s): G47.33 - Obstructive sleep apnea (adult) (pediatric) Plan: Continue to [facility]-up [facility] on BiPAP (2) Pate's esophagus determined by biopsy: Comment: 2018 EGD metaplasia but no dysplasia December 2020 Code(s): K22.70 - Pate's esophagus without dysplasia Plan: Avoid the foods that causes that usually spicy foods, tomato products, juices, coffee, soda and foods that your sensitive to. After eating do not lie down, allow 3-4 hours before in lie down. And keep the head of bed above 30 degrees to avoid the acid from going up. (3) Insomnia: Code(s): G47.00 - Insomnia, unspecified Plan: Patient has been following up with sleep management with Suboxone, gabapentin, trazodone (4) Generalized anxiety disorder: Code(s): F41.1 - Generalized anxiety disorder Plan: Continue with counseling and therapy (5) Hypercholesterolemia: Code(s): E78.00 - Pure hypercholesterolemia, unspecified Plan: Avoid fried foods, chicken skin, eggs, butter margarine, pastries and meat. Be it pork or beef they have a lot of cholesterol LDL goal of less than 130 and triglyceride of less than 150 (6) Impaired glucose tolerance: Code(s): R73.02 - Impaired glucose tolerance (oral) Plan: Decrease the amount of carbohydrate intake, pasta, bread, rice and potatoes are all sugar and that is aside from all the sweet stuff, remember that fruits are good but they are Sweet also. (7) Left leg DVT: Comment: History of hormone intake January 2019, May 2019 Code(s): I82.402 - Acute embolism and thrombosis of unspecified deep veins of left lower extremity Plan: Follows up with Hematology-Oncology and on Xarelto maintenance dose of 10 mg once a (8) WEINSTEIN (nonalcoholic steatohepatitis): Comment: 09/2018 normal LFT's, ferritin NML 221, Neg Hep A,B, C, neg autoimmune work up, AFP 2.0, Fibrosis score F0 US 05/2018 heptic steatosis US of abd IMPRESSION: 1. Hepatic steatosis without any focal lesion. The tail of the pancreas and proximal abdominal aorta are suboptimally visualized. 2. The gallbladder is contracted. 3. Extrarenal kidney pelvis versus mild hydronephrosis left kidney. 4. Small splenule. Code(s): K75.81 - Nonalcoholic steatohepatitis (WEINSTEIN) Plan: Low-fat diet and exercise (9) Low testosterone: Code(s): R79.89 - Other specified abnormal findings of blood chemistry (10) Umbilical hernia: Code(s): K42.9 - Umbilical hernia without obstruction or gangrene Plan: not ready for surgery for now. Orders: Orders Complete Blood Count Auto Diff Today R73.02 - Impaired glucose tolerance (oral) Thyroid Stimulating Hormone Today R73.02 - Impaired glucose tolerance (oral) Lipid Panel Today E78.00 - Pure hypercholesterolemia, unspecified, R73.02 - Impaired glucose tolerance (oral) Hemoglobin A1c Today R73.02 - Impaired glucose tolerance (oral) Comprehensive Met. Panel Today R73.02 - Impaired glucose tolerance (oral) Free T4 (Free Thyroxine) Today R73.02 - Impaired glucose tolerance (oral) Vitamin B12 and Folate Today R73.02 - Impaired glucose tolerance (oral) Prostate Specific Antigen Scr Today R73.02 - Impaired glucose tolerance (oral) Coding Level of Care Code Est Pt Level 4 (98994) Diagnoses Obstructive sleep apnea G47.33 Pate's esophagus determined by biopsy K22.70 Insomnia G47.00 Generalized anxiety disorder F41.1 Hypercholesterolemia E78.00 Impaired glucose tolerance R73.02 Left leg DVT I82.402 WEINSTEIN (nonalcoholic steatohepatitis) K75.81 Low testosterone R79.89 Umbilical hernia K42.9
[2023-10-31 14:38] VITALS: BP 120/66; PULSE 74; O2SAT 97; BMI 30.7
== END 2023-10-31 15:19 | disposition home or self-care (01) ==
PROVIDERS: PCP Internal Medicine; Visit Provider Internal Medicine
DX: G47.33 Obstructive sleep apnea (adult) (pediatric) (principal); K22.70 Barrett's esophagus without dysplasia; G47.00 Insomnia, unspecified; F41.1 Generalized anxiety disorder; E78.00 Pure hypercholesterolemia, unspecified; R73.02 Impaired glucose tolerance (oral); I82.402 Acute embolism and thrombosis of unspecified deep veins of left lower extremity; K75.81 Nonalcoholic steatohepatitis (NASH); R79.89 Other specified abnormal findings of blood chemistry; K42.9 Umbilical hernia without obstruction or gangrene

== ENCOUNTER → 2023-10-31 14:15 | Outpatient (BNVA) | payer BC, SELFPAY | PROVIDERS: PCP Internal Medicine; Visit Provider Internal Medicine | DX: G47.33 Obstructive sleep apnea (adult) (pediatric) (principal); K22.70 Barrett's esophagus without dysplasia; G47.00 Insomnia, unspecified; F41.1 Generalized anxiety disorder; E78.00 Pure hypercholesterolemia, unspecified; R73.02 Impaired glucose tolerance (oral); I82.402 Acute embolism and thrombosis of unspecified deep veins of left lower extremity; K75.81 Nonalcoholic steatohepatitis (NASH); E29.1 Testicular hypofunction; K42.9 Umbilical hernia without obstruction or gangrene ==

== ENCOUNTER 2023-12-19 11:27 | Day surgery (SDC) | payer BC, SELFPAY ==
[2023-12-15 14:14] VITALS: BMI 32.0
--- NOTE | 2023-12-19 09:02 | HO.ANESPROP2 ---
[facility] Active Problems Active Problems: All Active Problems Umbilical hernia (Acute) Low testosterone (Acute) Nasal congestion (Acute) Vitiligo (Acute) Restless leg syndrome (Acute) Annual physical exam (Acute) Migraine (Acute) Eye pain (Acute) Positive SAMANTHA (antinuclear antibody) (Acute) Excessive sweating (Acute) Heat intolerance (Acute) Dysphagia, pharyngoesophageal phase (Acute) Vitamin D deficiency (Acute) Guaiac positive stools (Acute) Rash (Acute) Dark urine (Acute) BMI 34.0-34.9,adult (Acute) Difficulty sleeping (Acute) Physical exam (Acute ~03/16/21) Mood changes (Acute) Pate's esophagus determined by biopsy (Acute) Esophageal spasm (Acute) WEINSTEIN (nonalcoholic steatohepatitis) (Acute) Lumbar spine pain (Acute) Left leg DVT (Acute) Tubular adenoma of colon (Acute) Impaired glucose tolerance (Acute) Hypercholesterolemia (Acute) Generalized anxiety disorder (Acute) Marijuana use (Acute) Obesity (BMI 30-39.9) (Acute) Insomnia (Acute) GERD (gastroesophageal reflux disease) (Acute) Obstructive sleep apnea (Acute) Past Medical History Medical History (Updated 10/31/23 @ 15:08 by Waylon Pavon MD) DVT (deep venous thrombosis) Impaired glucose tolerance Peptic ulcer disease Hypercholesterolemia Hypogonadism Generalized anxiety disorder Marijuana use Erectile dysfunction Obesity (BMI 30-39.9) Insomnia GERD (gastroesophageal reflux disease) Restless leg syndrome Obstructive sleep apnea Family History Family History Father Diabetes Heart attack Mother Thyroid condition Paternal Uncle Colon cancer Family/Other Family history of multiple sclerosis Other GERD (gastroesophageal reflux disease) Family history of problems with anesthesia: No Surgical History Surgical History Hx of tooth extraction History of colonoscopy Hx of endoscopy History of Problems with Anesthesia: No Social History Social History Household Members: Spouse Housing: Condominium Are you a primary managed care director to a significant other at home: No Do you presently have visiting nurse or other home services: No Alcohol intake: current Alcohol intake frequency: 0-2 drinks per day Alcohol type: wine Comment: 2-3 drinks of etoh a week Patient Tobacco Use Status: Former Tobacco user Tobacco use type: Cigarette Years Smoked: quit 2012 rarely marijuana e-Cigarette/Vaping Use: Never Used Second Hand Smoke Exposure: No Use of substances other than those prescribed or required for medical reasons: Yes Substance Use Type: Marijuana Have you been hit, kicked, punched, or otherwise hurt by someone within the past year? If so, by whom?: No Are you DNR?: No Advance Directives: No Advance Directives Information Provided: Yes Recently lost weight without trying: No service: No Current occupational status: employed Current occupational exposures/hazards: No Cognitive needs: No Hearing needs: No Vision needs: Yes (glasses) Meds Allergies Allergy/AdvReac Type Severity Reaction Status Date / Time Penicillins [PENICILLINS] Allergy Intermediate HIVES Verified 10/31/23 14:38 Home Medications ?Medication ?Instructions ?Recorded ?Confirmed ?Last Taken ?Type buprenorphine 2 mg-naloxone 0.5 mg See Rx Instructions buccal DAILY 04/27/23 07/21/23 Unknown History sublingual film (Suboxone) cholecalciferol (vitamin D3) 125 125 mcg PO DAILY 04/27/23 07/21/23 Unknown History mcg (5,000 unit) capsule cyanocobalamin (vitamin B-12) 1,000 mcg PO DAILY 04/27/23 07/21/23 Unknown History 1,000 mcg capsule magnesium citrate 100 mg capsule 100 mg PO BID 04/27/23 07/21/23 Unknown History ruxolitinib 1.5 % topical cream 1 appl topical BID 04/27/23 07/21/23 Unknown History (Opzelura) gabapentin 600 mg tablet 1,800 mg PO BID 07/21/23 07/21/23 Unknown History phenylephrine HCl 10 mg/mL 30 mg IM Q10M PRN 07/21/23 07/21/23 Unknown History injection solution testosterone cypionate 200 mg/mL mg IM 07/21/23 07/21/23 Unknown History intramuscular oil trazodone 50 mg tablet 50 mg PO BEDTIME 07/21/23 07/21/23 Unknown History Exam Height,Weight and Vital Signs: Height 5 ft 10 in Weight 101.151 kg Airway Mallampati Class: II (receeding gums infront, teeth in front not visible loose) TM Dist: >3cm Neck ROM: Full Heart: rrr Lungs: cta Assessment and Plan Assessment Anesthesia Assessment: Anesthesia Plan Discussed and Chart Reviewed Final Anesthetic Review Family History of Problems with Anesthesia: No History of Problems with Anesthesia: No NPO: Yes ASA Class: III Final Preanesthetic Review: No Changes in Pt Med Stat, Meds/Allgs Chart Reviewed and Consent Obtained/Reviewed Patient Risk: Intermediate Procedure Risk: Intermediate Anesthetic Plan Anesthetic Plan: MAC: Disposition: Standard PACU
[2023-12-19 12:13] VITALS: BP 110/71; PULSE 53; RESP 16; TEMP 36.7; O2SAT 98; BMI 30.8
--- NOTE | 2023-12-19 12:30 | P.HPSUR_ITS ---
Pre-Procedural Eval Section A - 24 Hr Update-Section A only Date of Service: 12/19/23 Section B - Complete if H&P > 30 days Chief Complaint: Surveillance for colon polyps, Pate's FU Relevant Family History (Specify if Yes): Yes Relevant Social History: Tobacco Use (Former smoker) Present Medications: see Short Stay Collaborative assessment Medical History: Significant History (DVT (deep venous thrombosis) Impaired glucose tolerance Peptic ulcer disease Hypercholesterolemia Hypogonadism Generalized anxiety disorder Marijuana use Erectile dysfunction Obesity (BMI 30- 39.9) Insomnia GERD (gastroesophageal reflux disease) Restless leg syndrome Obstructive sleep apnea) History of Previous Operations: Relevant previous surgery/procedure and date(s) (Hx of tooth extraction History of colonoscopy Hx of endoscopy) Allergies: Allergies Allergy/AdvReac Type Severity Reaction Status Date / Time Penicillins [PENICILLINS] Allergy Intermediate HIVES Verified 10/31/23 14:38 Review of Systems Sugical H&P ROS: Negative: Constitution, Cardiovascular, Respiratory and Gastrointestinal Exam Surgical H&P Exam: Normal: Heart, Normal: Lungs, Normal: Extremities and Normal: Abdomen Plan Diagnosis/Plan: Unchanged I have reviewed the history and physical and performed a pertinent physical examination on my patient. No changes have occurred unless specified. Time Spent With Patient Time: Total time managing care of this patient today ____ minutes.
[2023-12-19] MEDS: Lactated Ringers 1,000 ML 80 ML IVCONT (12:31)
--- NOTE | 2023-12-19 13:56 | P.OPN-COLO_ITS ---
Colonoscopy Operative Note Operative Note Date of Service: 12/19/23 Narrative: FLEXIBLE TRANSORAL UPPER GASTROINTESTINAL ENDOSCOPY WITH BIOPSIES AND ESOPHAGEAL BALLOON DILATION AND COLONOSCOPY TILL CECUM Pre-op diagnosis: Colon cancer screening, GERD, Dysphagia Post-op diagnosis: GERD, Gastric polyps, Diverticulosis, hemorrhoids Endoscopist:Avery Hernandez MD Anesthesia:?MAC UPPER ENDOSCOPY Consent: Indications for the procedure and potential complications of bleeding, perforation, reaction to medications and missed diagnosis were discussed with the patient and informed consent was obtained. Instrument: Olympus GIF H 190 mid size upper endoscope Monitoring: Vital signs and clinical assessment, continuous EKG monitoring, Pulse oximetry, Carbon Dioxide monitoring and blood pressure monitoring were done throughout the procedure. Procedure: The patient was placed in the left lateral decubitis position and pre-procedure medications were administered and a bite block was placed. The endoscope was inserted into the mouth and advanced under direct vision to the third part of duodenum. A careful inspection was made as the upper endoscope was withdrawn including a retroflexed examination of the proximal stomach; Findings and interventions are described below. Findings: Larynx: Erythema and edema of arytenoid cartilages Esophagus: GE junction at 40 cms.? Two 1 cms tongues of Pate's as noted on previous EGD - biopsies were obtained. ? No esophagitis. Stomach:?A few 5-10 mm benign appearing polyps in the gastric fundus and body - biopsied on previous EGD. Mild gastric erythema - biopsies obtained during previous EGD were negative for H pylori infection. Grade 2 flap valve on retroflexed examination of the cardia. Duodenum:?Normal bulb and descending duodenum Intervention: Biopsies as noted above COLONOSCOPY PROCEDURE NOTE Instrument: Olympus CF H 190 L variable stiffness adult colonoscope Monitoring: Vital signs and clinical assessment, intermittent blood pressure monitoring, continuous EKG monitoring, Pulse oximetry and Carbon Dioxide monitoring were done throughout the procedure. Please see anesthesia flowsheet. Colon withdrawl time was 15 minutes. Procedure: The patient was placed in the left lateral decubitis position and pre-procedure medications were administered. After a digital rectal examination of the ano-rectum, the video colonoscope was inserted into the rectum and advanced through the colon to the cecum. The colonoscope was slowly withdrawn in a retrograde panoramic fashion and the colon mucosa was carefully examined including a retroflexed view of the rectum. Findings and interventions are described below. Procedure Difficulty: without difficulty Findings: Terminal Ileum: Not evaluated Cecum: Partially evaluated due to residual stool and undigested vegetable matter Ascending Colon: Normal Transverse Colon: Normal Descending Colon: Moderate diverticulosis Sigmoid Colon: Moderate diverticulosis Rectum: Normal Ano-rectum: Moderate internal hemorrhoids Colon preparation: Good after copious irrigation. Clayton Bowel Preparation Scale Right colon; 2 Transverse colon: 2 Left colon; 2 (0 = Unprepared colon segment with mucosa not seen due to solid stool that cannot be cleared. 1 = Portion of mucosa of the colon segment seen, but other areas of the colon segment not well seen due to staining, residual stool and/or opaque liquid. 2 = Minor amount of residual staining, small fragments of stool and/or opaque liquid, but mucosa of colon segment seen well. 3 = Entire mucosa of colon segment seen well with no residual staining, small fragments of stool or opaque liquid) Impression and Post Procedure Diagnosis: Endoscopy Findings: ESOPHAGUS: Two 1 cms tongues of Pate's as noted on previous EGD - biopsies were obtained. ? STOMACH: Multiple gastric polyps Colonoscopy Findings: No polyps were detected Moderate diverticulosis seen in the left colon Moderate hemorrhoids on retroflexed exam. Plan: Pt has a FU appointment on 12/29/[address] Hernandez Repeat EGD in 3-4 years for FU of Barretts esophagus Repeat Colonoscopy in 3 years due to a hx of adenomatous colon polyps and sub- optimal prep in the cecum. (Advise adult colonoscope and Duloclax 2 tab daily x 5 days prior to colonoscopy appt) Pt placed on colonoscopy recall list. Above findings were reviewed with the patient and relevant handouts were given and the discharge area. BIOPSIES SHOWED: GE junction, biopsy: - Pate esophagus with background moderate chronic inactive inflammation. - No dysplasia seen. - Active esophagitis (maximum eosinophil count 1 per high powered field). Comment: [facility] results will be addended
[2023-12-19 14:29] VITALS: BP 115/73; PULSE 76; RESP 16; TEMP 36.7; O2SAT 100
[2023-12-19 14:47] VITALS: BP 120/82; PULSE 67; RESP 17; TEMP 36.7; O2SAT 98
== END 2023-12-19 15:02 | disposition home or self-care (01) ==
PROVIDERS: PCP Internal Medicine; Visit Provider Internal Medicine Gastroenterology
PROC: (CPT 45378; principal; 2023-12-19 13:40)
DX: Z12.11 Encounter for screening for malignant neoplasm of colon (principal); Z86.0101 Personal history of adenomatous and serrated colon polyps; K57.30 Diverticulosis of large intestine without perforation or abscess without bleeding; K64.8 Other hemorrhoids; K21.9 Gastro-esophageal reflux disease without esophagitis; K22.70 Barrett's esophagus without dysplasia; K31.7 Polyp of stomach and duodenum; Z87.11 Personal history of peptic ulcer disease; E78.00 Pure hypercholesterolemia, unspecified; R73.02 Impaired glucose tolerance (oral); G47.33 Obstructive sleep apnea (adult) (pediatric); Z86.718 Personal history of other venous thrombosis and embolism; Z79.01 Long term (current) use of anticoagulants; Z79.899 Other long term (current) drug therapy; Z88.0 Allergy status to penicillin; Z87.891 Personal history of nicotine dependence
CPT/HCPCS: 45378; 43249; 43239; 88305; C1726; J1596; J2003; J2704

== ENCOUNTER → 2023-12-19 11:27 | Outpatient (BNV) | payer BC, SELFPAY | PROVIDERS: PCP Internal Medicine; Visit Provider Internal Medicine Gastroenterology | DX: Z12.11 Encounter for screening for malignant neoplasm of colon (principal); K57.90 Diverticulosis of intestine, part unspecified, without perforation or abscess without bleeding; K64.8 Other hemorrhoids; K21.9 Gastro-esophageal reflux disease without esophagitis; R13.10 Dysphagia, unspecified; K31.7 Polyp of stomach and duodenum | CPT/HCPCS: 43239; 45378 ==

== ENCOUNTER 2023-12-22 09:22 | Outpatient (REF) | payer BC, SELFPAY ==
[2023-12-22 14:14] LABS: Cortisol Random < 1.0 ug/dL
[2024-01-10 08:28] LABS: Dexamethasone 176 ng/dL
== END 2023-12-22 09:23 | disposition home or self-care (01) ==
LOC: HO.HMGCLDS 09:22
PROVIDERS: PCP Internal Medicine; Visit Provider Internal Medicine
DX: R79.89 Other specified abnormal findings of blood chemistry (principal)
CPT/HCPCS: 36415; 80299; 82533

== ENCOUNTER 2023-12-29 12:05 | Outpatient (AMB) | payer BC, SELFPAY ==
--- NOTE | 2023-12-29 12:10 | A.OFFVIS_ITS ---
Intake Visit Reasons: S/P Double; Dr. Hernandez Intake Note: Relevant Flags or Indicators ? Requires Needle Setter? Jose Juan Tobar presents in office today for a scheduled s/p FUV. CC; No recent labs or diagnostics. Relevant GI Sx as reported per pt? None Only recent surgery was the double. No other recent surgeries. Needle Setter Required: No Allergies Penicillins [PENICILLINS] Allergy (Intermediate, Verified 12/29/23 12:06) HIVES Medication List - Last Reconciled 12/29/23 by Rl Hernnadez MD alprostadil 2.5 mcg intra-cavernosal 3XW PRN aluminum chloride 20% (Drysol Dab-O-Matic) topical [BIPAP heated humidified air As directed] buprenorphine-naloxone 2-0.5 mg (Suboxone) takes 0.25 mg buccally daily; place 1 strip/tab under (each) side of tongue Patient take a part of the film, so not taking whole dose of 2mg. cholecalciferol (vitamin D3) 125 mcg PO DAILY cyanocobalamin (vitamin B-12) 1,000 mcg PO DAILY daridorexant (Quviviq) mg PO fluticasone propionate 50 mcg/actuation (Flonase Allergy Relief) 2 sprays intr anasal DAILY gabapentin 1,800 mg PO BID ipratropium bromide intranasal lansoprazole 30 mg PO BID magnesium citrate 100 mg PO BID oxybutynin chloride ER mg PO phenylephrine HCl 30 mg IM Q10M PRN rivaroxaban (Xarelto) 10 mg PO DAILY ruxolitinib 1.5% (Opzelura) 1 appl topical BID testosterone cypionate mg IM HPI HPI S/P Double; Dr. Hernandez: Details: Telemedicine visit for this 53 for fu of GERD, Barretts esophagus, WEINSTEIN and colon polyps TODAY'S VISIT: CC; No recent labs or diagnostics. Relevant GI Sx as reported per pt? None Only recent surgery was the double. No other recent surgeries. EGD and colon results reviewed Takes Lansoprazole in the am and takes a 2nd dose later in the evening if he has symptoms. Continues to have intermittent dysphagia - likely due to esophageal spasm Quitted smoking 10 years ago. Denies drinking alcohol. PAST VISITS: Having increased symptoms today since he overate 2 days ago and stayed on a liquid diet yesterday. GERD symptoms well controlled with Lansoprazole. Did not need to use the carafate. Takes vitamin-D 2000 units daily for vitamin-D deficiency. Difficulty sleeping due to restless leg syndrome and feels tired during the day. Uses CPAP for sleep apnea. 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 Has less alcohol in recent years than in the past. Wt gain since he was off the testosterone Occasional constipation. Patient denies symptoms of heartburn, dysphagia, nausea, vomiting, change in appetite or weight.? Denies recent change in bowel habits, constipation, diarrhea, black stools or rectal bleeding. 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 Patient denies known family history of colon polyps, colon cancer or other GI malignancies. Dad's brother of cancer (smoker) unsure what kind. IMAGING STUDIES:? 11/2020 ABD US SHOWED: Diffusely increased echogenicity of the liver without focal mass. Findings consistent with fatty infiltration. ENDOSCOPIC STUDIES: 12/2020 EGD AND COLON SHOWED: ESOPHAGUS:? GE junction at 40 cms.? Two 1 cms tongues of Pate's as noted on previous EGD - biopsies were obtained. STOMACH: A few 5-10 mm benign appearing polyps in the gastric fundus and body - biopsied. Mild gastric erythema - biopsies were obtained. Colonoscopy Findings:? Three small to medium sized polyps removed Moderate diverticulosis seen in the left colon Moderate hemorrhoids on retroflexed exam. Plan:? Patient has an appointment on 01/19/21 in the GI Clinic with? Audrey Wing NP? . Repeat Colonoscopy interval based on path results - in 3 years if polyps are adenomatous and 10 years if polyps are hyperplastic. Repeat EGD in 3 -4 yrs if no dysplasia on esophageal biopsies PAST GI HISTORY BY REVIEW OF MEDICAL RECORDS: 11/2020 LAST SEEN BY AUDREY WING NP: He continues to do well on his Aciphex 20mg bid for his SSBE. His last EGD was in 2019 so? he is due for repeat. This leads me to discuss a screening colonoscopy which she has not ever had before this would be his 1st.? He needs quite a lot of Education about this as at 1st he is skeptical feeling that this may be ?a new or unproven thing.?? I quote? him several sources in say this is a well-established practice and in fact he is behind in his preventative care in terms of this with new guidelines saying we should be starting at age 45. I tell him that he can look up the guidelines from the [place] [employer], the [employer] [place] [employer], or even the [employer] on line if he wishes to reass ure himself that this is a well-established and researched preventative measure.? After thorough explanation he does consent to the procedure. He also had extensive questions about his fatty liver and whether not he would always need six-month follow ups.? I educate him that that depends on how much weight he can lows as to weight loss, avoiding alcohol controlling blood sugars are the triad of most important behavior some modify so that he does not progress to liver cancer or cirrhosis.? I again reminded him that 20-30% of people with fatty liver can go on to develop these conditions if they are not careful about her diet and lifestyle practices.? With this he is agreeable to updating his lab work and getting an ultrasound once it is scheduled. He had nausea and vomiting once for a surgery, but has not had trouble with propofol. He has occasional CIC but it is well controlled on colace. He will go today for his labs for his WEINSTEIN and we will schedule an US to catch up on his monitoring. He has insomnia and part of this is driven by severe hunger after about 2 AM. This may effect his scheduling. No ID problems. There is no known FHX of CRC or?polyp [facility] Medical History (Updated 10/31/23 @ 15:08 by Waylon Pavon MD) DVT (deep venous thrombosis) Impaired glucose tolerance Peptic ulcer disease Hypercholesterolemia Hypogonadism Generalized anxiety disorder Marijuana use Erectile dysfunction Obesity (BMI 30-39.9) Insomnia GERD (gastroesophageal reflux disease) Restless leg syndrome Obstructive sleep apnea Surgical History Hx of tooth extraction History of colonoscopy Hx of endoscopy Family History Father Diabetes Heart attack Mother Thyroid condition Paternal Uncle Colon cancer Family/Other Family history of multiple sclerosis Other GERD (gastroesophageal reflux disease) Social History Household Members: [facility] Are you a primary career services coordinator to a significant other at home: No Do you presently have visiting nurse or other home services: No Alcohol intake: current Alcohol intake frequency: 0-2 drinks per day Alcohol type: wine Comment: 2-3 drinks of etoh a week Patient Tobacco Use Status: Former Tobacco user Tobacco use type: Cigarette Years Smoked: quit 2012 rarely marijuana e-Cigarette/Vaping Use: Never Used Second Hand Smoke Exposure: No Substance Use Type: Marijuana service: No Current occupational status: employed Current occupational exposures/hazards: No Cognitive needs: No Hearing needs: No Vision needs: Yes (glasses) Review of Systems Const All systems reviewed & are unremarkable except as noted in HPI and below Telehealth Telehealth Telehealth Platform: Telephone Location of provider rendering services: practice address Location of patient: address on file Patient Identification confirmed using: Name, : Yes Telehealth method: voice only Patient verbally consented to treatment: Yes Patient verbally consented to billing insurance company: Yes Patient informed of any privacy concerns related to visit: Yes Minutes spent on Phone/Video with Pt.: 15 Assessment & Plan Assessment & Plan (1) Pate's esophagus determined by biopsy: Comment: 2018 EGD metaplasia but no dysplasia December 2020 Code(s): K22.70 - Pate's esophagus without dysplasia Category: Medical (2) Esophageal spasm: Code(s): K22.4 - Dyskinesia of esophagus Category: Medical (3) WEINSTEIN (nonalcoholic steatohepatitis): Comment: 09/2018 normal LFT's, ferritin NML 221, Neg Hep A,B, C, neg autoimmune work up, AFP 2.0, Fibrosis score F0 US 05/2018 heptic steatosis US of abd IMPRESSION: 1. Hepatic steatosis without any focal lesion. The tail of the pancreas and proximal abdominal aorta are suboptimally visualized. 2. The gallbladder is contracted. 3. Extrarenal kidney pelvis versus mild hydronephrosis left kidney. 4. Small splenule. Code(s): K75.81 - Nonalcoholic steatohepatitis (WEINSTEIN) Category: Medical (4) GERD (gastroesophageal reflux disease): Code(s): K21.9 - Gastro-esophageal reflux disease without esophagitis Category: Medical (5) Tubular adenoma of colon: Comment: 01/04 Three small to medium sized polyps removed during colonoscopy Moderate diverticulosis seen in the left colon Moderate hemorrhoids on retroflexed exam. Repeat Colon in 3 yrs (due 01/07). Code(s): D12.6 - Benign neoplasm of colon, unspecified Category: Medical (6) Vitamin D deficiency: Code(s): E55.9 - Vitamin D deficiency, unspecified Category: Medical (7) Dysphagia, pharyngoesophageal phase: Code(s): R13.14 - Dysphagia, pharyngoesophageal phase Category: Medical (8) Umbilical hernia: Code(s): K42.9 - Umbilical hernia without obstruction or gangrene Category: Medical Plan 53 YM for fu of GERD, Barretts esophagus, WEINSTEIN and colon polyps Heartburn is well controlled with medication. Has less alcohol in recent years than in the past. Wt gain since he was off the testosterone Occasional constipation. Quitted smoking 10 yrs ago Uses Marijuana for RLS On chronic anticoagulation for 2 DVTs in left upper leg. 12/2020 EGD AND COLON SHOWED: ESOPHAGUS:? GE junction at 40 cms.? Two 1 cms tongues of Pate's as noted on previous EGD - biopsies were obtained. STOMACH: A few 5-10 mm benign appearing polyps in the gastric fundus and body - biopsied. Mild gastric erythema - biopsies were obtained. Colonoscopy Findings:? Three small to medium sized polyps removed Moderate diverticulosis seen in the left colon Moderate hemorrhoids on retroflexed exam. Plan:? Patient has an appointment on 01/19/21 in the GI Clinic with? Audrey Wing NP? . Repeat EGD and Colonoscopy interval based on path results - in 3 years if polyps are adenomatous. 07/21/23 GERD symptoms well controlled with Lansoprazole. Did not need to use the carafate. Takes vitamin-D 2000 units daily for vitamin-D deficiency. Difficulty sleeping due to restless leg syndrome and feels tired during the day. Uses CPAP for sleep apnea. 12/19/23 EGD (FU of Pate's) and colonoscopy (FU of polyps) - were performed 12/29/23 EGD and colon results reviewed Takes Lansoprazole in the am and takes a 2nd dose later in the evening if he has symptoms. FU in 8 months Medications: Changed From lansoprazole 30 mg PO BID 180 caps 0RF K21.9 - Gastro-esophageal reflux disease without esophagitis To lansoprazole 30 mg PO BID 90 days 180 caps 2RF K21.9 - Gastro-esophageal reflux disease without esophagitis Coding Level of Care Code Tele Est Pt Level 3 (76369) Diagnoses Pate's esophagus determined by biopsy K22.70 Esophageal spasm K22.4 WEINSTEIN (nonalcoholic steatohepatitis) K75.81 GERD (gastroesophageal reflux disease) K21.9 Tubular adenoma of colon D12.6 Vitamin D deficiency E55.9 Dysphagia, pharyngoesophageal phase R13.14 Umbilical hernia K42.9 Time Spent (min) 15
== END 2023-12-29 12:51 | disposition home or self-care (01) ==
LOC: HO.HGI 12:05
PROVIDERS: PCP Internal Medicine; Referring Provider Internal Medicine; Visit Provider Internal Medicine Gastroenterology
DX: K22.70 Barrett's esophagus without dysplasia (principal); K22.4 Dyskinesia of esophagus; K75.81 Nonalcoholic steatohepatitis (NASH); K57.90 Diverticulosis of intestine, part unspecified, without perforation or abscess without bleeding; K42.9 Umbilical hernia without obstruction or gangrene
CPT/HCPCS: 99442

== ENCOUNTER 2024-01-14 10:22 | Outpatient (REF) | payer BC, SELFPAY ==
[2024-01-14 11:13] LABS: MANUAL DIFF FLAG NO
[2024-01-14 11:20] LABS: Basophils Percent Auto 0.7 % (0-2); Eosinophils Absolute Auto 0.1 X10*3/uL (0.0-0.4); Eosinophils Percent Auto 2.1 % (0-4); Hematocrit 50.1 % (42.0-52.0); Hemoglobin 16.9 g/dl (14.0-18.0); Imm Gran Abs Auto 0.01 X10*3/uL (0.00-0.03); Imm Gran Pct Auto 0.2 % (0.0-0.4); Lymphocytes Absolute Auto 1.6 X10*3/uL (1.2-4.9); Lymphocytes Percent Auto 28.2 % (20-40); Mean Corpuscular HGB Conc 33.7 g/dl (31.0-36.0); Mean Corpuscular Hemoglobin 31.8 pg (27.0-33.0); Mean Corpuscular Volume 94.4 fL (80.0-98.0); Mean Platelet Volume 9.7 fL (9.4-12.4); Monocytes Absolute Auto 0.7 X10*3/uL (0.1-1.2); Monocytes Percent Auto 11.7 % (2-11); Neutrophils Absolute Auto 3.2 x10*3/uL (2.0-8.3); Neutrophils Percent Auto 57.1 % (45-73); Platelet Count 178 X10*3/uL (160-400); Red Blood Count 5.31 X10*6/uL (4.60-5.80); Red Cell Distribution Width 12.9 % (11.0-16.0); White Blood Count 5.6 X10*3/uL (4.8-10.8)
[2024-01-14 11:24] LABS: Estimated Average Glucose 111 mg/dL; Hemoglobin A1C 155.4389 umol/L; Hemoglobin A1c % 5.5 % (<6.0); Total Hemoglobin (HGBA1C) 4283.9637 umol/L
[2024-01-14 11:51] LABS: Alanine Aminotransferase 30 U/L (0-40); Albumin Level 4.4 g/dL (3.5-5.0); Alkaline Phosphatase 61 U/L (39-117); Anion Gap 14 (12-20); Aspartate Amino Transferase 40 U/L (5-37); Bilirubin Total 1.2 mg/dL (0.0-1.0); Blood Urea Nitrogen 20 mg/dL (9-16); Calcium 9.6 mg/dL (8.4-10.2); Carbon Dioxide 29 mmol/L (22-29); Chloride 101 mmol/L (96-108); Cholesterol 180 mg/dL (<200); Estimated Glomerular Filt Rate > 60; Glucose Random 101 mg/dL (60-115); HDL Cholesterol 58 mg/dL (>40); LDL Cholesterol Calculated 111 mg/dL (<100); Potassium 5.3 mmol/L (3.3-5.1); Sodium 139 mmol/L (135-145); Total Protein 7.1 g/dL (6.5-8.0); Triglycerides 56 mg/dL (<150)
[2024-01-14 12:06] LABS: Free T4 (Free Thyroxine) 1.06 ng/dL (0.71-1.85)
[2024-01-14 12:20] LABS: Folate > 20.0 ng/mL (> or = 4.0); Prostate Specific Antigen Scr 1.09 ng/mL (<0.05-4.0); Vitamin B12 764 pg/mL (200-900)
== END 2024-01-14 10:23 | disposition home or self-care (01) ==
LOC: HO.HMGCLDS 10:22
PROVIDERS: PCP Internal Medicine; Referring Provider Internal Medicine Medical Oncology; Visit Provider Internal Medicine
DX: I82.402 Acute embolism and thrombosis of unspecified deep veins of left lower extremity (principal); E55.9 Vitamin D deficiency, unspecified; R73.02 Impaired glucose tolerance (oral); E78.00 Pure hypercholesterolemia, unspecified; Z12.5 Encounter for screening for malignant neoplasm of prostate
CPT/HCPCS: 36415; 80053; 80061; 82607; 82746; 83036; 84153; 84439; 84443; 85025

== ENCOUNTER 2024-02-06 13:30 | Outpatient (AMB) | payer BC, SELFPAY ==
--- NOTE | 2024-02-06 13:35 | A.OFFVIS_ITS ---
Vital Signs 02/06/24 13:36 Height 5 ft 10 in Weight 182 lb BMI 26.1 BP 129/67 Blood Pressure Location Lt brachial Position Sitting Pulse 80 Intake Visit Reasons: hernia Intake Note: Patient referred by Dr. Hernandez for umbilical hernia. Present for ? 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 He has had this several years time. It was becoming more symptomatic. He would like to have it repaired. No other GI issues or complaints. He is tolerating a diet. Having regular bowel habits. Patient is relatively active and likes to lift weights and would like to have this repaired because of fear of increasing hernia size should he proceed with his workouts. Chart was reviewed and patient evaluated. Patient was status post DVT several years ago. He is currently on Xarelto for this. This will need to be held a few days prior to surgery. He said he has done this in the past for other procedures. [facility] Medical History (Updated 10/31/23 @ 15:08 by Waylon Pavon MD) DVT (deep venous thrombosis) Impaired glucose tolerance Peptic ulcer disease Hypercholesterolemia Hypogonadism Generalized anxiety disorder Marijuana use Erectile dysfunction Obesity (BMI 30-39.9) Insomnia GERD (gastroesophageal reflux disease) Restless leg syndrome Obstructive sleep apnea Surgical History Hx of tooth extraction History of colonoscopy Hx of endoscopy Family History Father Diabetes Heart attack Mother Thyroid condition Paternal Uncle Colon cancer Family/Other Family history of multiple sclerosis Other GERD (gastroesophageal reflux disease) Social History Household Members: Spouse Housing: Condominium Are you a primary day care provider to a significant other at home: No Do you presently have visiting nurse or other home services: No Alcohol intake: current Alcohol intake frequency: 0-2 drinks per day Alcohol type: wine Comment: 2-3 drinks of etoh a week Patient Tobacco Use Status: Former Tobacco user Tobacco use type: Cigarette Years Smoked: quit 2012 rarely marijuana e-Cigarette/Vaping Use: Never Used Second Hand Smoke Exposure: No Substance Use Type: Marijuana service: No Current occupational status: employed Current occupational exposures/hazards: No Cognitive needs: No Hearing needs: No Vision needs: Yes (glasses) Physical Exam Vital Signs: Last Vital Signs Pulse 80 02/06/24 13:36 BP 129/67 02/06/24 13:36 BMI result Body Mass Index 26.1 Chest Other: Chest breath sounds bilaterally, HS 1 in 2 GI Other: Patient was examined both supine and standing with Valsalva. Bilateral groin exam negative. Genitalia within normal limits. Patient was a roughly 3 cm incarcerated umbilical hernia. Corpulent abdomen. Otherwise benign. Assessment & Plan Assessment & Plan (1) Incarcerated umbilical hernia: Code(s): K42.0 - Umbilical hernia with obstruction, without gangrene Category: Surgical Plan Risks, benefits, and alternatives of open umbilical hernia repair with mesh were reviewed with the patient and included but not limited to bleeding, infection, recurrence, numbness, pain, scarring, bowel injury and the patient wishes to proceed. All questions answered. Arrangements will be made for this on a day which is convenient for him. Coding Level of Care Code New Pt Level 5 (68627) Diagnoses Incarcerated umbilical hernia K42.0
[2024-02-06 13:36] VITALS: BP 129/67; PULSE 80; BMI 26.1
== END 2024-02-06 13:48 | disposition home or self-care (01) ==
LOC: HO.HGS 13:30
PROVIDERS: PCP Internal Medicine; Visit Provider Surgery
DX: K42.0 Umbilical hernia with obstruction, without gangrene (principal)
CPT/HCPCS: 99205

== ENCOUNTER → 2024-02-06 13:30 | Outpatient (BNVA) | payer BC, SELFPAY | PROVIDERS: PCP Internal Medicine; Visit Provider Surgery ==

== ENCOUNTER 2024-02-17 14:22 | Outpatient (REF) | payer BC, SELFPAY ==
[2024-02-17 16:05] LABS: MANUAL DIFF FLAG NO
[2024-02-17 16:14] LABS: Basophils Percent Auto 0.6 % (0-2); Eosinophils Absolute Auto 0.2 X10*3/uL (0.0-0.4); Eosinophils Percent Auto 2.9 % (0-4); Hematocrit 49.4 % (42.0-52.0); Imm Gran Abs Auto 0.02 X10*3/uL (0.00-0.03); Imm Gran Pct Auto 0.3 % (0.0-0.4); Lymphocytes Absolute Auto 1.6 X10*3/uL (1.2-4.9); Lymphocytes Percent Auto 22.9 % (20-40); Mean Corpuscular HGB Conc 34.4 g/dl (31.0-36.0); Mean Corpuscular Volume 92.9 fL (80.0-98.0); Mean Platelet Volume 9.9 fL (9.4-12.4); Monocytes Absolute Auto 0.6 X10*3/uL (0.1-1.2); Monocytes Percent Auto 8.6 % (2-11); Neutrophils Absolute Auto 4.5 x10*3/uL (2.0-8.3); Neutrophils Percent Auto 64.7 % (45-73); Platelet Count 197 X10*3/uL (160-400); Red Blood Count 5.32 X10*6/uL (4.60-5.80); Red Cell Distribution Width 12.3 % (11.0-16.0); White Blood Count 6.9 X10*3/uL (4.8-10.8)
[2024-02-17 16:57] LABS: Iron 131 mcg/dL (45-160); Percent Iron Saturation 50 % (15-50); Total Iron Binding Capacity 260 mcg/dL (228-428); Unsaturated Iron Binding 129 ug/dL
[2024-02-17 17:12] LABS: Ferritin 438 ng/mL (20-250)
[2024-02-24 16:57] LABS: Testosterone, Free 373.7 pg/mL (35.0-155.0); Testosterone, Total 1507 ng/dL (250-1100)
== END 2024-02-17 14:23 | disposition home or self-care (01) ==
LOC: HO.HMGCLDS 14:22
PROVIDERS: Internal Medicine Sleep Medicine; PCP Internal Medicine; Referring Provider Internal Medicine; Visit Provider Internal Medicine Medical Oncology
DX: E83.10 Disorder of iron metabolism, unspecified (principal); I82.402 Acute embolism and thrombosis of unspecified deep veins of left lower extremity
CPT/HCPCS: 36415; 82728; 83540; 84402; 84403; 85025

== ENCOUNTER 2024-03-01 10:07 | Day surgery (SDC) | payer BC, SELFPAY ==
--- NOTE | 2024-02-29 09:57 | MHC.SHP ---
Pre-Procedural Eval Section A - 24 Hr Update-Section A only Date of Service: 03/01/24 The patient is an INPATIENT: No Changes since office visit: No Cold of Flu in the past 2 weeks, No New Medical Problems, No Changes in Medication and No Patient answered all questions Section B - Complete if H&P > 30 days Chief Complaint: Umbilical hernia with obstruction, without gangren Allergies: Allergies Allergy/AdvReac Type Severity Reaction Status Date / Time Penicillins [PENICILLINS] Allergy Intermediate HIVES Verified 12/29/23 12:06 Review of Systems Sugical H&P ROS: Negative: Constitution, Cardiovascular, Respiratory, Neurological, Psychiatric, Hem-Onc, Allergic/Immunologic, Gastrointestinal, Genitourinary, Musculoskeletal, Integumentary, Endocrine and Eyes/Ears/Nose/Throat Exam Surgical H&P Exam: Normal: HEENT, Normal: Heart, Normal: Lungs, Normal: Extremities, Normal: Abdomen, Normal: Skin and Normal: Neurological Plan I have reviewed the history and physical and performed a pertinent physical examination on my patient. No changes have occurred unless specified. Time Spent With Patient Time: Total time managing care of this patient today ____ minutes.
[2024-03-01 10:39] VITALS: BMI 30.8
[2024-03-01 10:58] VITALS: BP 122/74; PULSE 58; RESP 16; TEMP 36.7; O2SAT 94
--- NOTE | 2024-03-01 11:00 | P.CONAN_ITS ---
Documented by User: Linette Redd NP 02/29/24 11:54 HPI - Anesthesia Eval Consult details Narrative: 53yo M for OPEN Incarcerated Hernia Umbilical with mesh s/p Upper Endoscopy and Colonoscopy 12/2023 with TIVA Suboxone 8mg daily Xarelto for DVT PMFSH Active Problems Active Problems: All Active Problems Incarcerated umbilical hernia (Acute) Umbilical hernia (Acute) Low testosterone (Acute) Nasal congestion (Acute) Vitiligo (Acute) Restless leg syndrome (Acute) Annual physical exam (Acute) Migraine (Acute) Eye pain (Acute) Positive SAMANTHA (antinuclear antibody) (Acute) Excessive sweating (Acute) Heat intolerance (Acute) Dysphagia, pharyngoesophageal phase (Acute) Vitamin D deficiency (Acute) Guaiac positive stools (Acute) Rash (Acute) Dark urine (Acute) BMI 34.0-34.9,adult (Acute) Difficulty sleeping (Acute) Physical exam (Acute ~03/16/21) Mood changes (Acute) Pate's esophagus determined by biopsy (Acute) Esophageal spasm (Acute) WEINSTEIN (nonalcoholic steatohepatitis) (Acute) Lumbar spine pain (Acute) Left leg DVT (Acute) Tubular adenoma of colon (Acute) Impaired glucose tolerance (Acute) Hypercholesterolemia (Acute) Generalized anxiety disorder (Acute) Marijuana use (Acute) Obesity (BMI 30-39.9) (Acute) Insomnia (Acute) GERD (gastroesophageal reflux disease) (Acute) Obstructive sleep apnea (Acute) Past Medical History Medical History (Updated 10/31/23 @ 15:08 by Waylon Pavon MD) DVT (deep venous thrombosis) Impaired glucose tolerance Peptic ulcer disease Hypercholesterolemia Hypogonadism Generalized anxiety disorder Marijuana use Erectile dysfunction Obesity (BMI 30-39.9) Insomnia GERD (gastroesophageal reflux disease) Restless leg syndrome Obstructive sleep apnea Family History Family History Father Diabetes Heart attack Mother Thyroid condition Paternal Uncle Colon cancer Family/Other Family history of multiple sclerosis Other GERD (gastroesophageal reflux disease) Family history of problems with anesthesia: No Surgical History Surgical History Hx of tooth extraction History of colonoscopy Hx of endoscopy History of Problems with Anesthesia: No Social History Social History Household Members: Spouse Housing: Condominium Are you a primary manager care management to a significant other at home: No Do you presently have visiting nurse or other home services: No Alcohol intake: current Alcohol intake frequency: 0-2 drinks per day Alcohol type: wine Comment: 2-3 drinks of etoh a week Patient Tobacco Use Status: Former Tobacco user Tobacco use type: Cigarette Years Smoked: quit 2012 rarely marijuana e-Cigarette/Vaping Use: Never Used Second Hand Smoke Exposure: No Use of substances other than those prescribed or required for medical reasons: Yes Substance Use Type: Marijuana Are you DNR?: No Advance Directives: No Advance Directives Information Provided: Yes Recently lost weight without trying: No Nutrition Risks: No Nutritional Risk Poor oral hygiene: No service: No Current occupational status: employed Current occupational exposures/hazards: No Cognitive needs: No Hearing needs: No Vision needs: Yes (glasses) Meds Allergies Allergy/AdvReac Type Severity Reaction Status Date / Time Penicillins [PENICILLINS] Allergy Intermediate HIVES Verified 12/29/23 12:06 Home Medications ?Medication ?Instructions ?Recorded ?Confirmed ?Last Taken ?Type buprenorphine 2 mg-naloxone 0.5 mg See Rx Instructions buccal DAILY 04/27/23 02/06/24 Unknown History sublingual film (Suboxone) cholecalciferol (vitamin D3) 125 125 mcg PO DAILY 04/27/23 02/06/24 Unknown History mcg (5,000 unit) capsule cyanocobalamin (vitamin B-12) 1,000 mcg PO DAILY 04/27/23 02/06/24 Unknown History 1,000 mcg capsule magnesium citrate 100 mg capsule 100 mg PO BID 04/27/23 02/06/24 Unknown History ruxolitinib 1.5 % topical cream 1 appl topical BID 04/27/23 02/06/24 Unknown History (Opzelura) gabapentin 600 mg tablet 1,800 mg PO BID 07/21/23 02/06/24 Unknown History phenylephrine HCl 10 mg/mL 30 mg IM Q10M PRN 07/21/23 02/06/24 Unknown History injection solution testosterone cypionate 200 mg/mL mg IM 07/21/23 02/06/24 Unknown History intramuscular oil aluminum chloride 20 % topical topical 12/29/23 02/06/24 Unknown History solution (Drysol Dab-O-Matic) daridorexant 50 mg tablet (Quviviq) mg PO 12/29/23 02/06/24 Unknown History ipratropium bromide 21 mcg (0.03 intranasal 12/29/23 02/06/24 Unknown History %) nasal spray oxybutynin chloride 10 mg mg PO 12/29/23 02/06/24 Unknown History tablet,extended release 24 hr Fish Oil 03/01/24 03/01/24 History Exam Pertinent Lab Results Pertinent Lab Results: Laboratory Tests 01/14/24 02/17/24 10:27 14:48 WBC 6.9 Hgb 17.0 Hct 49.4 Plt Count 197 Sodium 139 Potassium 5.3 H Chloride 101 Carbon Dioxide 29 BUN 20 H Creatinine 1.02 Assessment and Plan Assessment Anesthesia Assessment: Chart Reviewed Final Anesthetic Review Family History of Problems with Anesthesia: No History of Problems with Anesthesia: No Documented by User: Kristine Pereyra DO 03/01/24 11:41 [facility] Past Medical History Medical History (Updated 10/31/23 @ 15:08 by Waylon Pavon MD) DVT (deep venous thrombosis) Impaired glucose tolerance Peptic ulcer disease Hypercholesterolemia Hypogonadism Generalized anxiety disorder Marijuana use Erectile dysfunction Obesity (BMI 30-39.9) Insomnia GERD (gastroesophageal reflux disease) Restless leg syndrome Obstructive sleep apnea Family History Family History Father Diabetes Heart attack Mother Thyroid condition Paternal Uncle Colon cancer Family/Other Family history of multiple sclerosis Other GERD (gastroesophageal reflux disease) Family history of problems with anesthesia: No Surgical History Surgical History Hx of tooth extraction History of colonoscopy Hx of endoscopy History of Problems with Anesthesia: No Social History Social History Household Members: Spouse Housing: Condominium Are you a primary manager care management to a significant other at home: No Do you presently have visiting nurse or other home services: No Alcohol intake: current Alcohol intake frequency: 0-2 drinks per day Alcohol type: wine Comment: 2-3 drinks of etoh a week Patient Tobacco Use Status: Former Tobacco user Tobacco use type: Cigarette Years Smoked: quit 2013 rarely marijuana e-Cigarette/Vaping Use: Never Used Second Hand Smoke Exposure: No Use of substances other than those prescribed or required for medical reasons: Yes Substance Use Type: Marijuana Are you DNR?: No Advance Directives: No Advance Directives Information Provided: Yes Recently lost weight without trying: No Nutrition Risks: No Nutritional Risk Poor oral hygiene: No service: No Current occupational status: employed Current occupational exposures/hazards: No Cognitive needs: No Hearing needs: No Vision needs: Yes (glasses) Meds Allergies Allergy/AdvReac Type Severity Reaction Status Date / Time Penicillins [PENICILLINS] Allergy Intermediate HIVES Verified 12/29/23 12:06 Home Medications ?Medication ?Instructions ?Recorded ?Confirmed ?Last Taken ?Type buprenorphine 2 mg-naloxone 0.5 mg See Rx Instructions buccal DAILY 04/27/23 02/06/24 Unknown History sublingual film (Suboxone) cholecalciferol (vitamin D3) 125 125 mcg PO DAILY 04/27/23 02/06/24 Unknown His tory mcg (5,000 unit) capsule cyanocobalamin (vitamin B-12) 1,000 mcg PO DAILY 04/27/23 02/06/24 Unknown History 1,000 mcg capsule magnesium citrate 100 mg capsule 100 mg PO BID 04/27/23 02/06/24 Unknown History ruxolitinib 1.5 % topical cream 1 appl topical BID 04/27/23 02/06/24 Unknown History (Opzelura) gabapentin 600 mg tablet 1,800 mg PO BID 07/21/23 02/06/24 Unknown History phenylephrine HCl 10 mg/mL 30 mg IM Q10M PRN 07/21/23 02/06/24 Unknown History injection solution testosterone cypionate 200 mg/mL mg IM 07/21/23 02/06/24 Unknown History intramuscular oil aluminum chloride 20 % topical topical 12/29/23 02/06/24 Unknown History solution (Drysol Dab-O-Matic) daridorexant 50 mg tablet (Quviviq) mg PO 12/29/23 02/06/24 Unknown History ipratropium bromide 21 mcg (0.03 intranasal 12/29/23 02/06/24 Unknown History %) nasal spray oxybutynin chloride 10 mg mg PO 11/14/24 12/23/24 Unknown History tablet,extended release 24 hr Fish Oil 03/01/24 03/01/24 History Exam Exam Date and Time: 03/01/24 1135 Height,Weight and Vital Signs: Height 5 ft 10 in Weight 97.522 kg Vital Signs Temperature 98.1 F 03/01/24 10:58 Pulse Rate 58 03/01/24 10:58 Respiratory Rate 16 03/01/24 10:58 Blood Pressure 122/74 03/01/24 10:58 Pulse Oximetry 94 03/01/24 10:58 Oxygen Delivery Method Room Air 03/01/24 10:58 Temperature 98.1 F 03/01/24 10:58 Pulse Rate 58 03/01/24 10:58 Respiratory Rate 16 03/01/24 10:58 Blood Pressure 122/74 03/01/24 10:58 Pulse Oximetry 94 03/01/24 10:58 Oxygen Delivery Method Room Air 03/01/24 10:58 Airway Mallampati Class: I TM Dist: >3cm Neck ROM: Full Loose/Missing/Broken Teeth: Yes (loose front bottom teeth) Heart: S1S2 Lungs: CTAB Assessment and Plan Assessment Anesthesia Assessment: Anesthesia Plan Discussed and Chart Reviewed Final Anesthetic Review Family History of Problems with Anesthesia: No History of Problems with Anesthesia: No NPO: Yes ASA Class: II Final Preanesthetic Review: No Changes in Pt Med Stat, Meds/Allgs Chart Reviewed, Consent Obtained/Reviewed and Anes Risks/Benef Reviewed Patient Risk: Low Procedure Risk: Low Anesthetic Plan Anesthetic Plan: MAC: and Agree w/ Assess. and Plan Disposition: Standard PACU
[2024-03-01] MEDS: Lactated Ringers 1,000 ML 100 ML IVCONT (11:13)
[2024-03-01 11:53] VITALS: BP 119/61; PULSE 60; RESP 14; TEMP 36.1; O2SAT 100
--- NOTE | 2024-03-01 11:56 | W.PM.OPN ---
Operative Note Operative Note Date of Service: 03/01/24 Narrative: Preoperative diagnosis: [] Incarcerated symptomatic umbilical hernia Postop diagnosis: [] The same Procedure [] open umbilical herniorrhaphy with Bard mesh Surgeon: [] Chucky Roofer Assistant: [] Marc Type of Anesthesia: [] MAC Indication for surgery: [] Roughly 3 cm incarcerated umbilical hernia with omental contents Findings: [] Patient brought to the operating room, placed on operative table supine position, after an adequate level of MAC anesthesia was induced, the patient's abdomen which was moderately corpulent was prepped and draped in usual sterile fashion. Using a supraumbilical curvilinear incision, this carried down through skin, subcutaneous tissue, where a large multilobulated hernia sac was identified, from the posterior aspect of the umbilicus, dissected through the fascia, and opened. Sac and omental incarcerated contents were amputated using Bovie. Fascia margins were circumferentially cleared. An appropriately sized Bard dual mesh was placed in the defect, and the superficial layer of the mesh was circumferentially sutured to the surrounding fascia using interrupted 0 Ethibond suture. At completion of procedure, mesh was in good position with no gaps or tension. Wound was irrigated, secured hemostasis, and closed in the following manner; posterior aspect of the umbilicus was tacked to the wound floor using interrupted 3-0 Vicryl suture. Skin was closed using interrupted inverted dermal 3-0 Vicryl sutures followed by Steri-Strips and sterile dressings. Wound was infiltrated the beginning at the end of the case with 0.5% Marcaine/1% lidocaine. Sponge, needle, and instrument counts reported correct. Patient tolerated the procedure well and emerged from anesthesia stable condition. EBL minimal
[2024-03-01 12:08] VITALS: BP 126/81; PULSE 61; RESP 16; O2SAT 96
[2024-03-01 12:23] VITALS: BP 115/73; PULSE 61; RESP 20; O2SAT 95
[2024-03-01 12:38] VITALS: BP 116/75; PULSE 54; RESP 16; TEMP 36.1; O2SAT 94
== END 2024-03-01 13:06 | disposition home or self-care (01) ==
PROVIDERS: PCP Internal Medicine; Visit Provider Surgery
PROC: (CPT 49592; principal; 2024-03-01 12:00)
DX: K42.0 Umbilical hernia with obstruction, without gangrene (principal); K27.9 Peptic ulcer, site unspecified, unspecified as acute or chronic, without hemorrhage or perforation; K21.9 Gastro-esophageal reflux disease without esophagitis; E78.00 Pure hypercholesterolemia, unspecified; R73.02 Impaired glucose tolerance (oral); G47.33 Obstructive sleep apnea (adult) (pediatric); G25.81 Restless legs syndrome; N52.9 Male erectile dysfunction, unspecified; E29.1 Testicular hypofunction; F41.9 Anxiety disorder, unspecified; Z86.718 Personal history of other venous thrombosis and embolism; Z79.01 Long term (current) use of anticoagulants; Z79.899 Other long term (current) drug therapy; Z88.0 Allergy status to penicillin; Z87.891 Personal history of nicotine dependence
CPT/HCPCS: 49592; 88302; C1781; J0736; J1100; J1885; J2003; J2250; J2704; J2795; J3010

== ENCOUNTER → 2024-03-01 10:07 | Outpatient (BNV) | payer BC, SELFPAY | PROVIDERS: PCP Internal Medicine; Visit Provider Surgery | DX: K42.0 Umbilical hernia with obstruction, without gangrene (principal) | CPT/HCPCS: 49616 ==

== ENCOUNTER 2024-03-12 14:01 | Outpatient (AMB) | payer BC, SELFPAY ==
--- NOTE | 2024-03-12 14:03 | MHC.OFFVIS ---
Intake Visit Reasons: S/P Lg. umbilical hernia w/mesh Intake Note: Patient here s/p open umbilical herniorrhaphy with Bard mesh. Reports incision healing well. Patient c/o: no concerns. Only took rx pain meds for the first couple of days. Surgery: 03-01-2024 Chief Nursing Executive Required: No Accompanied by: Self / Same As Patient Allergies Penicillins [PENICILLINS] Allergy (Intermediate, Verified 03/12/24 14:05) HIVES HPI Comments Details: Patient presents for follow-up status post umbilical hernia repair. He is doing quite well. Starting a diet. Having regular bowel habits. He is increasing his activity level. Minimal incisional discomfort [facility] Medical History (Updated 10/31/23 @ 15:08 by Waylon Pavon MD) DVT (deep venous thrombosis) Impaired glucose tolerance Peptic ulcer disease Hypercholesterolemia Hypogonadism Generalized anxiety disorder Marijuana use Erectile dysfunction Obesity (BMI 30-39.9) Insomnia GERD (gastroesophageal reflux disease) Restless leg syndrome Obstructive sleep apnea Surgical History (Updated 03/12/24 @ 14:10 by Thanh Locke MD) Incarcerated umbilical hernia (03/01/24) Hx of tooth extraction History of colonoscopy Hx of endoscopy Family History Father Diabetes Heart attack Mother Thyroid condition Paternal Uncle Colon cancer Family/Other Family history of multiple sclerosis Other GERD (gastroesophageal reflux disease) Social History Household Members: Spouse Housing: [facility] Are you a primary rn patient care to a significant other at home: No Do you presently have visiting nurse or other home services: No Alcohol intake: current Alcohol intake frequency: 0-2 drinks per day Alcohol type: wine Comment: 2-3 drinks of etoh a week Patient Tobacco Use Status: Former Tobacco user Tobacco use type: Cigarette Years Smoked: quit 2013 rarely marijuana e-Cigarette/Vaping Use: Never Used Second Hand Smoke Exposure: No Substance Use Type: Marijuana service: No Current occupational status: employed Current occupational exposures/hazards: No Cognitive needs: No Hearing needs: No Vision needs: Yes (glasses) Physical Exam GI Other: Abdomen corpulent, soft. Incision clean dry and intact healing very well Assessment & Plan Assessment & Plan (1) Status post umbilical hernia repair, follow-up exam: Code(s): Z09 - Encounter for follow-up examination after completed treatment for conditions other than malignant neoplasm Category: Medical Plan Patient was been given local instructions including avoiding strenuous activities next few weeks time and will otherwise follow-up p.r.n.. All questions answered. Coding Level of Care Code Global (74375) Diagnoses Status post umbilical hernia repair, follow-up exam Z09
--- OUTSIDE RECORDS SUMMARY | 2024-03-12 18:31 | XMS_ITS | Encounter Summary ---
Author Organization [facility] Address [address] [place] [phone] Care Team Providers Care Bb Shot Packer Name Role Phone Obtain, Unable To Primary Care Provider Unavaila ble Encounter Details Date Type Department Care Team (Late st Contact Info) Description 11/15/2019 Scanned Document Sleep Medicine Program at [address] [place] [phone] Myrna Mcdermott MD Social History Tobacco Use Types Packs/Day Years Used Date Smoking Tobacco: Former Cigarettes Q uit: 04/05/2014 Smokeless Tobacco: Never Sex and Gender Information Value Date Recorded Sex Assigned at Not on file Legal Sex Male 3:53 PM EST Gender Identity Not on file Sexual Orientation Not on file documented as of this encounter Plan of Treatment Not on file documented as of this encounter Visit Diagnoses Not on filedocumented in this encounter Care Teams Bb Shot Packer Relationship Specialty Start Date End Date Obtain, Unable To PCP - General 03/27/19 documented as of this encounter
--- OUTSIDE RECORDS SUMMARY | 2024-03-12 18:31 | XMS_ITS | Encounter Summary ---
Author Organization [facility] Address [address] [place] [phone] Care Team Providers Care Drafter Detail Name Role Phone Obtain, Unable To Primary Care Provider Unavaila ble Encounter Details Date Type Department Care Team ([facility] st Contact Info) Description 07/12/2019 Scanned Document Sleep Medicine Program at [address] [place] [phone] Korey Kingsley MD [address] [place] [phone] Social History Tobacco Use Types Packs/Day Years Used Date Smoking Tobacco: Former Cigarettes Q uit: 04/05/2014 Smokeless Tobacco: Never Sex and Gender Information Value Date Recorded Sex Assigned at Not on file Legal Sex Male 3:53 PM EST Gender Identity Not on file Sexual Orientation Not on file COVID-19 Exposure Response Date Recorded In the last month, have you been in contact with someone who was confirmed or suspected to have Coronavirus / COVID-19? No / Unsure 07/03/2019 3:00 PM EDT documented as of this encounter Plan of Treatment Not on file documented as of this encounter Visit Diagnoses Not on filedocumented in this encounter Care Teams Drafter Detail Relationship Specialty Start Date End Date Obtain, Unable To PCP - General 03/27/19 documented as of this encounter
--- OUTSIDE RECORDS SUMMARY | 2024-03-12 18:31 | XMS_ITS | Encounter Summary ---
Author Organization [facility] Address [address] [place] [phone] Care Team Providers Care Weigher And Mixer Name Role Phone Obtain, Unable To Primary Care Provider Unavaila ble Encounter Details Date Type Department Care Team ([facility] st Contact Info) Description 07/12/2019 Scanned Document Sleep Medicine Program at [address] [place] [phone] Korey Kingsley MD [address] [place] [phone] Social History Tobacco Use Types Packs/Day [...] on filedocumented in this encounter Care Teams Weigher And Mixer Relationship Specialty Start Date End Date Obtain, Unable To PCP - General 03/27/19 documented as of this encounter
--- OUTSIDE RECORDS SUMMARY | 2024-03-12 18:31 | XMS_ITS | Encounter Summary ---
Author Organization [facility] Address [address] [place] [phone] Care Team Providers Care Classification Inspector Name Role Phone Obtain, Unable To Primary Care Provider Unavaila ble Encounter Details Date Type Department Care Team ([facility] st Contact Info) Description 07/12/2019 Scanned Document Sleep Medicine Program at [address] [place] [phone] Korey Kingsley MD [address] [place] [phone] Social History Tobacco Use Types Packs/Day [...] on filedocumented in this encounter Care Teams Classification Inspector Relationship Specialty Start Date End Date Obtain, Unable To PCP - General 03/27/19 documented as of this encounter
--- OUTSIDE RECORDS SUMMARY | 2024-03-12 18:31 | XMS_ITS | Clinical Summary ---
Author Organization [address] Address [address] [place] [phone] Care Team Providers Care African History Professor Name Role Phone Obtain, Unable To Primary Care Provider Unavaila ble Allergies Active Allergy Reactions Criticality Noted Date Comments Penicillins Rash Low 01/30/2018 Medications gabapentin (NEURONTIN) 300 mg capsule Take 600 mg by mouth nightly. 10pm 03/29/19 20 Active gabapentin (NEURONTIN) 100 mg capsule Take 300 mg by mouth nightly. 12am 09/19/19 19 Active UNABLE TO FIND Med Name: medical marijuana 02/23gram edible Active XARELTO 10 mg tablet Take 10 mg by mouth daily. 03/09/19 20 Active pantoprazole (PROTONIX) 40 mg tablet TAKE 1 TABLET BY MOUTH TWICE DAILY FOR 30 DAYS 03/06/19 20 Active multivitamin tablet Take 1 tablet by mouth. Active VITAMIN D2 1,250 mcg (50,000 unit) capsule TAKE 1 CAPSULE BY MOUTH ONCE A WEEK 02/09/20 19 Active TRIMIX INTRACAVERNOSAL INJECTION by Intracavernosal route as needed for erectile dysfunction. Into penis 10-30 minutes prior to intercourse; do not repeat for at least 24 hr Active Active Problems Problem Noted Date Diagnosed Date RLS (restless legs syndrome) 04/05/2019 Deep vein thrombosis (DVT) of proximal lower ext remity 04/05/2019 Erectile dysfunction 04/05/2019 Gastroesophageal reflux disease with esophagitis 04/05/2019 Sleep apnea 04/05/2019 Social History Tobacco Use Types Packs/Day Years Used Date Smoking Tobacco: Former Cigarettes Q uit: 04/05/2014 Smokeless Tobacco: Never Sex and Gender Information Value Date Recorded Sex Assigned at Not on file Legal Sex Male 3:53 PM EST Gender Identity Not on file Sexual Orientation Not on file Last Filed Vital Signs Vital Sign Reading Time Taken Comments Blood Pressure 132/74 04/05/2019 3:38 PM EST Pulse 50 04/05/2019 3:38 PM EST Temperature 36.3 ??C (97.3 ??F) 04/05/2019 3:38 PM ES T Respiratory Rate 16 04/05/2019 3:38 PM EST Oxygen Saturation 97% 04/05/2019 3:38 PM EST Inhaled Oxygen Concentration - - Weight 108.9 kg (240 lb) 04/05/2019 3:38 PM EST Height 177.8 cm (5' 10 ) 04/05/2019 3:38 PM EST Body Mass Index 34.44 04/05/2019 3:38 PM EST Plan of Treatment Health Maintenance Due Date Last Done Comments HIV screening 1983 Hepatitis C screening 1988 Tetanus adult (Td q 10,TDAP once) 1990 Lipid disorder screening 2010 Colon cancer screening, Colonoscopy 2015 Diabetes screening 2015 Shingles vaccine (Shingrix) (1 of 2 - Shingrix (RZV) 2 Dose Standard Series) 2020 Influenza vaccine 09/15/2023 Covid-19 vaccine series (2023- season) 2023 RSV Discussion (1 - 1-dose 7 5+ series) 2045 Meningococcal Vaccine Aged Out No petrona issac eligible based on patient's age to complete this topic Pneumococcal Vaccine Aged Out No long er eligible based on patient's age to complete this topic Care Teams African History Professor Relationship Specialty Start Date End Date Obtain, Unable To PCP - General 03/27/19
--- OUTSIDE RECORDS SUMMARY | 2024-03-12 18:31 | XMS_ITS | Encounter Summary ---
Author Organization [facility] and [facility] Address [address] [place] [phone] Care Team Providers Care Historical Society Director Name Role Phone Obtain, Unable To Primary Care Provider Unavaila ble Encounter Details Date Type Department Care Team ([facility] st Contact Info) Description 07/12/2019 Scanned Document Sleep Medicine Program at [address] [place] [phone] Korey Kingsley MD [address] [place] [phone] Social History Tobacco Use Types Packs/Day [...] on filedocumented in this encounter Care Teams Historical Society Director Relationship Specialty Start Date End Date Obtain, Unable To PCP - General 03/27/19 documented as of this encounter
--- OUTSIDE RECORDS SUMMARY | 2024-03-12 18:32 | XMS_ITS | Encounter Summary ---
Author Organization [facility] and [facility] Address [address] [place] [phone] Care Team Providers Care Oil Field Laborer Name Role Phone Obtain, Unable To Primary Care Provider Unavaila ble Encounter Details Date Type Department Care Team ([facility] st Contact Info) Description 07/12/2019 Documentation Sleep Medicine Program at [address] [place] [phone] Korey Kingsley MD [address] [place] [phone] Social History Tobacco Use Types Packs/Day [...] on filedocumented in this encounter Care Teams Oil Field Laborer Relationship Specialty Start Date End Date Obtain, Unable To PCP - General 03/27/19 documented as of this encounter
--- OUTSIDE RECORDS SUMMARY | 2024-03-12 18:32 | XMS_ITS | Encounter Summary ---
Author Organization [facility] and [facility] Address [address] [place] [phone] Care Team Providers Care Academic Program Specialist Name Role Phone Obtain, Unable To Primary Care Provider Unavaila ble Encounter Details Date Type Department Care Team ([facility] st Contact Info) Description 07/12/2019 Scanned Document Sleep Medicine Program at [address] [place] [phone] Korey Kingsley MD [address] [place] [phone] Social History Tobacco Use Types Packs/Day [...] on filedocumented in this encounter Care Teams Academic Program Specialist Relationship Specialty Start Date End Date Obtain, Unable To PCP - General 03/27/19 documented as of this encounter
--- OUTSIDE RECORDS SUMMARY | 2024-03-12 18:32 | XMS_ITS | Encounter Summary ---
Author Organization [facility] and [facility] Address [address] [place] [phone] Care Team Providers Care Rapid Transit Operator Name Role Phone Obtain, Unable To Primary Care Provider Unavaila ble Encounter Details Date Type Department Care Team ([facility] st Contact Info) Description 07/12/2019 Scanned Document Sleep Medicine Program at [address] [place] [phone] Korey Kingsley MD [address] [place] [phone] Social History Tobacco Use Types Packs/Day [...] on filedocumented in this encounter Care Teams Rapid Transit Operator Relationship Specialty Start Date End Date Obtain, Unable To PCP - General 03/27/19 documented as of this encounter
--- OUTSIDE RECORDS SUMMARY | 2024-03-12 18:32 | XMS_ITS | Encounter Summary ---
Author Organization [facility] and [facility] Address [address] [place] [phone] Care Team Providers Care Communications Department Head Name Role Phone Obtain, Unable To Primary Care Provider Unavaila ble Encounter Details Date Type Department Care Team ([facility] st Contact Info) Description 07/12/2019 Scanned Document Sleep Medicine Program at [address] [place] [phone] Korey Kingsley MD [address] [place] [phone] Social History Tobacco Use Types Packs/Day [...] on filedocumented in this encounter Care Teams Communications Department Head Relationship Specialty Start Date End Date Obtain, Unable To PCP - General 03/27/19 documented as of this encounter
--- OUTSIDE RECORDS SUMMARY | 2024-03-12 18:32 | XMS_ITS | Encounter Summary ---
Author Organization [facility] and [facility] Address [address] [place] [phone] Care Team Providers Care Lode Miner Name Role Phone Obtain, Unable To Primary Care Provider Unavaila ble Encounter Details Date Type Department Care Team ([facility] st Contact Info) Description 07/12/2019 Abstract Sleep Medicine Program at [address] [place] [address] Korey Kingsley MD [address] [place] [phone] Social History Tobacco Use Types Packs/Day [...] on filedocumented in this encounter Care Teams Lode Miner Relationship Specialty Start Date End Date Obtain, Unable To PCP - General 03/27/19 documented as of this encounter
--- OUTSIDE RECORDS SUMMARY | 2024-03-12 18:32 | XMS_ITS | Encounter Summary ---
Author Organization [facility] and [facility] Address [address] [place] [phone] Care Team Providers Care Ediscovery Project Manager Name Role Phone Obtain, Unable To Primary Care Provider Unavaila ble Encounter Details Date Type Department Care Team ([facility] st Contact Info) Description 07/12/2019 Scanned Document Sleep Medicine Program at [address] [place] [address] Korey Kingsley MD [address] [place] [phone] Social History Tobacco Use Types Packs/Day [...] on filedocumented in this encounter Care Teams Ediscovery Project Manager Relationship Specialty Start Date End Date Obtain, Unable To PCP - General 03/27/19 documented as of this encounter
--- OUTSIDE RECORDS SUMMARY | 2024-03-12 18:32 | XMS_ITS | Encounter Summary ---
Author Organization [facility] and [facility] Address [address] [place] [phone] Care Team Providers Care Conveyor Man Name Role Phone Obtain, Unable To Primary Care Provider Unavaila ble Encounter Details Date Type Department Care Team ([facility] st Contact Info) Description 07/12/2019 Scanned Document Sleep Medicine Program at [address] [place] [phone] Korey Kingsley MD [address] [place] [phone] Social History Tobacco Use Types Packs/Day [...] on filedocumented in this encounter Care Teams Conveyor Man Relationship Specialty Start Date End Date Obtain, Unable To PCP - General 03/27/19 documented as of this encounter
--- OUTSIDE RECORDS SUMMARY | 2024-03-12 18:32 | XMS_ITS | Encounter Summary ---
Author Organization [facility] and [facility] Address [address] [place] [phone] Care Team Providers Care Service Technician Name Role Phone Obtain, Unable To Primary Care Provider Unavaila ble Encounter Details Date Type Department Care Team ([facility] st Contact Info) Description 07/12/2019 Scanned Document Sleep Medicine Program at [address] [place] [address] Korey Kingsley MD [address] [place] [phone] Social History Tobacco Use Types Packs/Day [...] on filedocumented in this encounter Care Teams Service Technician Relationship Specialty Start Date End Date Obtain, Unable To PCP - General 03/27/19 documented as of this encounter
--- OUTSIDE RECORDS SUMMARY | 2024-03-12 18:32 | XMS_ITS | Encounter Summary ---
Author Organization [facility] and [facility] Address [address] [place] [phone] Care Team Providers Care Tool Die Maker Name Role Phone Obtain, Unable To Primary Care Provider Unavaila ble Encounter Details Date Type Department Care Team ([facility] st Contact Info) Description 05/15/2019 Scanned Document Sleep Medicine Program at [address] [place] [address] Korey Kingsley MD [address] [place] [phone] Social History Tobacco Use Types Packs/Day [...] on filedocumented in this encounter Care Teams Tool Die Maker Relationship Specialty Start Date End Date Obtain, Unable To PCP - General 03/27/19 documented as of this encounter
--- OUTSIDE RECORDS SUMMARY | 2024-03-12 18:32 | XMS_ITS | Encounter Summary ---
Author Organization [facility] and [facility] Address [address] [place] [phone] Care Team Providers Care Coil Repair Technician Name Role Phone Obtain, Unable To Primary Care Provider Unavaila ble Encounter Details Date Type Department Care Team ([facility] st Contact Info) Description 07/12/2019 Scanned Document Sleep Medicine Program at [address] [place] [address] Korey Kingsley MD [address] [place] [phone] Social History Tobacco Use Types Packs/Day [...] on filedocumented in this encounter Care Teams Coil Repair Technician Relationship Specialty Start Date End Date Obtain, Unable To PCP - General 03/27/19 documented as of this encounter
== END 2024-03-12 14:28 | disposition home or self-care (01) ==
PROVIDERS: PCP Internal Medicine; Visit Provider Surgery
DX: K42.9 Umbilical hernia without obstruction or gangrene (principal); Z09 Encounter for follow-up examination after completed treatment for conditions other than malignant neoplasm
CPT/HCPCS: 99212

== ENCOUNTER → 2024-03-12 14:01 | Outpatient (BNVA) | payer BC, SELFPAY | PROVIDERS: PCP Internal Medicine; Visit Provider Surgery ==

== ENCOUNTER 2024-06-19 11:50 | Outpatient (REF) | payer BC, SELFPAY ==
--- OUTSIDE RECORDS SUMMARY | 2024-06-19 13:25 | XMS_ITS | Encounter Summary ---
Author Organization [facility] Address [address] [place] [phone] Care Team Providers Care Whitewater Rafting Guide Name Role Phone Obtain, Unable To Primary Care Provider Unavaila ble Encounter Details Date Type Department Care Team ([facility] st Contact Info) Description 07/12/2019 Documentation Sleep Medicine Program at [address] [place] [address] Korey Kingsley MD [address] [place] [phone] Social History Tobacco Use Types Packs/Day [...] on filedocumented in this encounter Care Teams Whitewater Rafting Guide Relationship Specialty Start Date End Date Obtain, Unable To PCP - General 03/27/19 documented as of this encounter
--- OUTSIDE RECORDS SUMMARY | 2024-06-19 13:25 | XMS_ITS | Encounter Summary ---
Author Organization [facility] and [facility] Address [address] [place] [phone] Care Team Providers Care Sand Mill Operator Facing Sand Name Role Phone Obtain, Unable To Primary Care Provider Unavaila ble Encounter Details Date Type Department Care Team ([facility] st Contact Info) Description 07/12/2019 Scanned Document Sleep Medicine Program at [address] [place] [address] Korey Kingsley MD [address] [place] [phone] Social History Tobacco Use Types Packs/Day [...] on filedocumented in this encounter Care Teams Sand Mill Operator Facing Sand Relationship Specialty Start Date End Date Obtain, Unable To PCP - General 03/27/19 documented as of this encounter
--- OUTSIDE RECORDS SUMMARY | 2024-06-19 13:25 | XMS_ITS | Encounter Summary ---
Author Organization [facility] and [facility] Address [address] [place] [phone] Care Team Providers Care Public Relations Assistant Name Role Phone Obtain, Unable To Primary Care Provider Unavaila ble Encounter Details Date Type Department Care Team ([facility] st Contact Info) Description 07/12/2019 Scanned Document Sleep Medicine Program at [address] [place] [address] Korey Kingsley MD [address] [place] [phone] Social History Tobacco Use Types Packs/Day [...] on filedocumented in this encounter Care Teams Public Relations Assistant Relationship Specialty Start Date End Date Obtain, Unable To PCP - General 03/27/19 documented as of this encounter
--- OUTSIDE RECORDS SUMMARY | 2024-06-19 13:25 | XMS_ITS | Encounter Summary ---
Author Organization [facility] and [facility] Address [address] [place] [phone] Care Team Providers Care Gl Accountant Name Role Phone Obtain, Unable To Primary Care Provider Unavaila ble Encounter Details Date Type Department Care Team ([facility] st Contact Info) Description 07/12/2019 Scanned Document Sleep Medicine Program at [address] [place] [phone] Korey Kingsley MD [address] [place] [phone] Social History Tobacco Use Types Packs/Day [...] on filedocumented in this encounter Care Teams Gl Accountant Relationship Specialty Start Date End Date Obtain, Unable To PCP - General 03/27/19 documented as of this encounter
--- OUTSIDE RECORDS SUMMARY | 2024-06-19 13:25 | XMS_ITS | Encounter Summary ---
Author Organization [facility] and [facility] Address [address] [place] [phone] Care Team Providers Care Shoelace Tipping Machine Operator Name Role Phone Obtain, Unable To Primary Care Provider Unavaila ble Encounter Details Date Type Department Care Team ([facility] st Contact Info) Description 07/12/2019 Scanned Document Sleep Medicine Program at [address] [place] [address] Korey Kingsley MD [address] [place] [phone] Social History Tobacco Use Types Packs/Day [...] on filedocumented in this encounter Care Teams Shoelace Tipping Machine Operator Relationship Specialty Start Date End Date Obtain, Unable To PCP - General 03/27/19 documented as of this encounter
--- OUTSIDE RECORDS SUMMARY | 2024-06-19 13:25 | XMS_ITS | Encounter Summary ---
Author Organization [facility] and [facility] Address [address] [place] [phone] Care Team Providers Care Cpo Name Role Phone Obtain, Unable To Primary Care Provider Unavaila ble Encounter Details Date Type Department Care Team (Late st Contact Info) Description 11/15/2019 Scanned Document Sleep Medicine Program at [address] [place] [phone] Myrna Mcdermott MD Social History Tobacco Use [...] on filedocumented in this encounter Care Teams Cpo Relationship Specialty Start Date End Date Obtain, Unable To PCP - General 03/27/19 documented as of this encounter
--- OUTSIDE RECORDS SUMMARY | 2024-06-19 13:25 | XMS_ITS | Encounter Summary ---
Author Organization [facility] and [facility] Address [address] [place] [phone] Care Team Providers Care Glaze Handler Name Role Phone Obtain, Unable To Primary Care Provider Unavaila ble Encounter Details Date Type Department Care Team ([facility] st Contact Info) Description 07/12/2019 Scanned Document Sleep Medicine Program at [address] [place] [phone] Korey Kingsley MD [address] [place] [phone] Social History Tobacco Use Types Packs/Day [...] on filedocumented in this encounter Care Teams Glaze Handler Relationship Specialty Start Date End Date Obtain, Unable To PCP - General 03/27/19 documented as of this encounter
--- OUTSIDE RECORDS SUMMARY | 2024-06-19 13:25 | XMS_ITS | Encounter Summary ---
Author Organization [facility] Address [address] [place] [phone] Care Team Providers Care Mainframe Programmer Analyst Name Role Phone Obtain, Unable To Primary Care Provider Unavaila ble Encounter Details Date Type Department Care Team ([facility] st Contact Info) Description 07/12/2019 Scanned Document Sleep Medicine Program at [address] [place] [phone] Korey Kingsley MD [address] [place] [phone] Social History Tobacco Use Types Packs/Day [...] on filedocumented in this encounter Care Teams Mainframe Programmer Analyst Relationship Specialty Start Date End Date Obtain, Unable To PCP - General 03/27/19 documented as of this encounter
--- OUTSIDE RECORDS SUMMARY | 2024-06-19 13:25 | XMS_ITS | Encounter Summary ---
Author Organization [facility] and [facility] Address [address] [place] [phone] Care Team Providers Care Adjunct Professor Of Law Name Role Phone Obtain, Unable To Primary Care Provider Unavaila ble Encounter Details Date Type Department Care Team ([facility] st Contact Info) Description 07/12/2019 Scanned Document Sleep Medicine Program at [address] [place] [address] Korey Kingsley MD [address] [place] [phone] Social History Tobacco Use Types Packs/Day [...] on filedocumented in this encounter Care Teams Adjunct Professor Of Law Relationship Specialty Start Date End Date Obtain, Unable To PCP - General 03/27/19 documented as of this encounter
--- OUTSIDE RECORDS SUMMARY | 2024-06-19 13:25 | XMS_ITS | Encounter Summary ---
Author Organization [facility] and [facility] Address [address] [place] [phone] Care Team Providers Care Childcare Provider Name Role Phone Obtain, Unable To Primary Care Provider Unavaila ble Encounter Details Date Type Department Care Team ([facility] st Contact Info) Description 07/12/2019 Scanned Document Sleep Medicine Program at [address] [place] [address] Korey Kingsley MD [address] [place] [phone] Social History Tobacco Use Types Packs/Day [...] on filedocumented in this encounter Care Teams Childcare Provider Relationship Specialty Start Date End Date Obtain, Unable To PCP - General 03/27/19 documented as of this encounter
--- OUTSIDE RECORDS SUMMARY | 2024-06-19 13:25 | XMS_ITS | Encounter Summary ---
Author Organization [facility] and [facility] Address [address] [place] [phone] Care Team Providers Care Medieval English Literature Professor Name Role Phone Obtain, Unable To Primary Care Provider Unavaila ble Encounter Details Date Type Department Care Team ([facility] st Contact Info) Description 07/12/2019 Scanned Document Sleep Medicine Program at [address] [place] [address] Korey Kingsley MD [address] [place] [phone] Social History Tobacco Use Types Packs/Day [...] on filedocumented in this encounter Care Teams Medieval English Literature Professor Relationship Specialty Start Date End Date Obtain, Unable To PCP - General 03/27/19 documented as of this encounter
--- OUTSIDE RECORDS SUMMARY | 2024-06-19 13:25 | XMS_ITS | Encounter Summary ---
Author Organization [facility] and [facility] Address [address] [place] [phone] Care Team Providers Care Chairman And Chief Executive Officer Name Role Phone Obtain, Unable To Primary Care Provider Unavaila ble Encounter Details Date Type Department Care Team ([facility] st Contact Info) Description 07/12/2019 Scanned Document Sleep Medicine Program at [address] [place] [phone] Korey Kingsley MD [address] [place] [phone] Social History Tobacco Use Types Packs/Day [...] on filedocumented in this encounter Care Teams Chairman And Chief Executive Officer Relationship Specialty Start Date End Date Obtain, Unable To PCP - General 03/27/19 documented as of this encounter
--- OUTSIDE RECORDS SUMMARY | 2024-06-19 13:25 | XMS_ITS | Encounter Summary ---
Author Organization [facility] and [facility] Address [address] [place] [phone] Care Team Providers Care Intake Nurse Name Role Phone Obtain, Unable To Primary Care Provider Unavaila ble Encounter Details Date Type Department Care Team ([facility] st Contact Info) Description 05/15/2019 Scanned Document Sleep Medicine Program at [address] [place] [address] Korey Kingsley MD [address] [place] [phone] Social History Tobacco Use Types Packs/Day [...] on filedocumented in this encounter Care Teams Intake Nurse Relationship Specialty Start Date End Date Obtain, Unable To PCP - General 03/27/19 documented as of this encounter
--- OUTSIDE RECORDS SUMMARY | 2024-06-19 13:25 | XMS_ITS | Encounter Summary ---
Author Organization [facility] and [facility] Address [address] [place] [phone] Care Team Providers Care Student Liaison Officer Name Role Phone Obtain, Unable To Primary Care Provider Unavaila ble Encounter Details Date Type Department Care Team ([facility] st Contact Info) Description 07/12/2019 Abstract Sleep Medicine Program at [address] [place] [phone] Korey Kingsley MD [address] [place] [phone] Social History Tobacco Use Types Packs/Day [...] on filedocumented in this encounter Care Teams Student Liaison Officer Relationship Specialty Start Date End Date Obtain, Unable To PCP - General 03/27/19 documented as of this encounter
--- OUTSIDE RECORDS SUMMARY | 2024-06-19 13:25 | XMS_ITS | Clinical Summary ---
Author Organization [address] Address [address] [place] [phone] Care Team Providers Care Medical Van Driver Name Role Phone Obtain, Unable To Primary [...] cancer screening, Colonoscopy 2015 Diabetes screening 2015 Pneumococcal Vaccine (50+ ye ars) (1 of 1 - PCV) 2020 Shingles vaccine (Shingrix) (1 of 2 - Shingrix (RZV) 2 Dose Standard Series) 2020 Covid-19 vaccine series (1 - 2023- season) 2023 Influenza vaccine 10/15/2024 RSV Immunization (1 - 1-dose 75+ series) 2045 Meningococcal Vaccine Aged Out No petrona issac eligible based on patient's age to complete this topic Pneumococcal Vaccine (2 - 49 years) Aged Out No longer eligible based on patient's age to complete this topic Care Teams Medical Van Driver Relationship Specialty Start Date End Date Obtain, Unable To PCP - General 03/27/19
--- OUTSIDE RECORDS SUMMARY | 2024-06-19 13:25 | XMS_ITS | Encounter Summary ---
Author Organization [facility] Address [address] [place] [phone] Care Team Providers Care Keller Machine Operator Name Role Phone Obtain, Unable To Primary Care Provider Unavaila ble Encounter Details Date Type Department Care Team ([facility] st Contact Info) Description 07/12/2019 Scanned Document Sleep Medicine Program at [address] [place] [phone] Korey Kingsley MD [address] [place] [phone] Social History Tobacco Use Types Packs/Day [...] on filedocumented in this encounter Care Teams Keller Machine Operator Relationship Specialty Start Date End Date Obtain, Unable To PCP - General 03/27/19 documented as of this encounter
[2024-06-19 16:12] LABS: Hematocrit 42.7 % (42.0-52.0); Hemoglobin 14.8 g/dl (14.0-18.0); Mean Corpuscular HGB Conc 34.7 g/dl (31.0-36.0); Mean Corpuscular Hemoglobin 32.5 pg (27.0-33.0); Mean Corpuscular Volume 93.6 fL (80.0-98.0); Mean Platelet Volume 10.2 fL (9.4-12.4); Platelet Count 219 X10*3/uL (160-400); Red Blood Count 4.56 X10*6/uL (4.60-5.80); Red Cell Distribution Width 12.7 % (11.0-16.0); White Blood Count 6.8 X10*3/uL (4.8-10.8)
[2024-06-24 13:39] LABS: Testosterone, Total 1555 ng/dL (250-1100)
== END 2024-06-19 11:51 | disposition home or self-care (01) ==
LOC: HO.HMGCLDS 11:50
PROVIDERS: PCP Internal Medicine; Visit Provider Internal Medicine
DX: Z13.89 Encounter for screening for other disorder (principal)
CPT/HCPCS: 36415; 84402; 84403; 85027

== ENCOUNTER 2024-08-01 12:03 | Outpatient (AMB) | payer BC, SELFPAY ==
--- NOTE | 2024-08-01 12:15 | A.OFFVIS_ITS ---
Vital Signs 08/01/24 12:24 Height 5 ft 10 in Weight 200 lb BMI 28.7 BP 106/50 L Blood Pressure Location Lt brachial Position Sitting Pulse 63 Oxygen Delivery Method Room Air Oxygen Flow Rate 96 Intake Visit Reasons: follow up Intake Note: Patient 8 month follow up for Pate's esophagus determined by biopsy. Patient denies any other GI issues. 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 cholecalciferol (vitamin D3) 125 mcg PO DAILY cyanocobalamin (vitamin B-12) 1,000 mcg PO DAILY [Fish Oil ] fluticasone propionate 50 mcg/actuation (Flonase Allergy Relief) 2 sprays intranasal DAILY ipratropium bromide intranasal lansoprazole 30 mg PO BID 90 days magnesium citrate 100 mg PO BID oxybutynin chloride ER mg PO phenylephrine HCl 30 mg IM Q10M PRN ruxolitinib 1.5% (Opzelura) 1 appl topical BID HPI HPI follow up: Details: GI clinic visit for this 54 YM for fu of GERD, Barretts esophagus, WEINSTEIN and colon polyps TODAY'S VISIT: CC; Patient denies any other GI issues. Patient is taking new medication but he does not the doses: Dipyridamole in place of Xarelto, Dayvigo, and 5 HTP Supplement (to help with sleep) Has lost wt since RLS was making him binge eat and is not doing that any more. Mouth gets dry due to oxybutinin and is difficult to swallow. PAST VISITS: EGD and colon results reviewed Takes Lansoprazole in the am and takes a 2nd dose later in the evening if he has symptoms. Continues to have intermittent dysphagia - likely due to esophageal spasm Quitted smoking 10 years ago. Denies drinking alcohol. Having increased symptoms today since he overate 2 days ago and stayed on a liquid diet yesterday. GERD symptoms well controlled with Lansoprazole. Did not need to use the carafate. Takes vitamin-D 2000 units daily for vitamin-D deficiency. Difficulty sleeping due to restless leg syndrome and feels tired during the day. Uses CPAP for sleep apnea. 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 Has less alcohol in recent years than in the past. Wt gain since he was off the testosterone Occasional constipation. Patient denies symptoms of heartburn, dysphagia, nausea, vomiting, change in appetite or weight.? Denies recent change in bowel habits, constipation, diarrhea, black stools or rectal bleeding. 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 Patient denies known family history of colon polyps, colon cancer or other GI malignancies. Dad's brother of cancer (smoker) unsure what kind. IMAGING STUDIES:? 11/2020 ABD US SHOWED: Diffusely increased echogenicity of the liver without focal mass. Findings consistent with fatty infiltration. ENDOSCOPIC STUDIES: 12/19/23: EGD AND COLON SHOWED: ESOPHAGUS: Two 1 cms tongues of Pate's as noted on previous EGD - biopsies were obtained. ? STOMACH: Multiple gastric polyps Colonoscopy Findings: No polyps were detected Moderate diverticulosis seen in the left colon Moderate hemorrhoids on retroflexed exam. Plan: Repeat EGD in 3-4 years for FU of Barretts esophagus Repeat Colonoscopy in 3 years due to a hx of adenomatous colon polyps and sub-optimal prep in the cecum. (Advise adult colonoscope and Duloclax 2 tab daily x 5 days prior to colonoscopy appt) Pt placed on colonoscopy recall list. BIOPSIES SHOWED: GE junction, biopsy: - Pate esophagus with background moderate chronic inactive inflammation. - No dysplasia seen. - Active esophagitis (maximum eosinophil count 1 per high powered field). 12/2020 EGD AND COLON SHOWED: ESOPHAGUS:? GE junction at 40 cms.? Two 1 cms tongues of Pate's as noted on previous EGD - biopsies were obtained. STOMACH: A few 5-10 mm benign appearing polyps in the gastric fundus and body - biopsied. Mild gastric erythema - biopsies were obtained. Colonoscopy Findings:? Three small to medium sized polyps removed Moderate diverticulosis seen in the left colon Moderate hemorrhoids on retroflexed exam. Plan:? Patient has an appointment on 01/19/21 in the GI Clinic with? Tramaine Wing NP? . Repeat Colonoscopy interval based on path results - in 3 years if polyps are adenomatous and 10 years if polyps are hyperplastic. Repeat EGD in 3 -4 yrs if no dysplasia on esophageal biopsies PAST GI HISTORY BY REVIEW OF MEDICAL RECORDS: 11/2020 LAST SEEN BY TRAMAINE WING NP: He continues to do well on his Aciphex 20mg bid for his SSBE. His last EGD was in 2019 so? he is due for repeat. This leads me to discuss a screening colonoscopy which she has not ever had before this would be his 1st.? He needs quite a lot of Education about this as at 1st he is skeptical feeling that this may be ?a new or unproven thing.?? I quote? him several sources in say this is a well-established practice and in fact he is behind in his preventative care in terms of this with new guidelines saying we should be starting at age 45. I tell him that he can look up the guidelines from the [place] [employer], the [employer], or even the [place] [employer] on line if he wishes to reassure himself that this is a well-established and researched preventative measure.? After thorough explanation he does consent to the procedure. He also had extensive questions about his fatty liver and whether not he would always need six-month follow ups.? I educate him that that depends on how much weight he can lows as to weight loss, avoiding alcohol controlling blood sugars are the triad of most important behavior some modify so that he does not progress to liver cancer or cirrhosis.? I again reminded him that 20-30% of people with fatty liver can go on to develop these conditions if they are not careful about her diet and lifestyle practices.? With this he is agreeable to updating his lab work and getting an ultrasound once it is scheduled. He had nausea and vomiting once for a surgery, but has not had trouble with p ropofol. He has occasional CIC but it is well controlled on colace. He will go today for his labs for his WEINSTEIN and we will schedule an US to catch up on his monitoring. He has insomnia and part of this is driven by severe hunger after about 2 AM. This may effect his scheduling. No ID problems. There is no known FHX of CRC or?polyps [facility] Medical History (Updated 08/01/24 @ 16:12 by Rl Hernandez MD) DVT (deep venous thrombosis) Impaired glucose tolerance Peptic ulcer disease Hypercholesterolemia Hypogonadism Generalized anxiety disorder Marijuana use Erectile dysfunction Obesity (BMI 30-39.9) Insomnia GERD (gastroesophageal reflux disease) Restless leg syndrome Obstructive sleep apnea Surgical History Incarcerated umbilical hernia (03/01/24) Hx of tooth extraction History of colonoscopy Hx of endoscopy Family History Father Diabetes Heart attack Mother Thyroid condition Paternal Uncle Colon cancer Family/Other Family history of multiple sclerosis Other GERD (gastroesophageal reflux disease) Social History Household Members: Spouse Housing: [facility] Are you a primary home care and home health aides teacher to a significant other at home: No Do you presently have visiting nurse or other home services: No Alcohol intake: current Alcohol intake frequency: 0-2 drinks per day Alcohol type: wine Comment: 2-3 drinks of etoh a week Patient Tobacco Use Status: Former Tobacco user Tobacco use type: Cigarette Years Smoked: quit 2012 rarely marijuana e-Cigarette/Vaping Use: Never Used Second Hand Smoke Exposure: No Substance Use Type: Marijuana service: No Current occupational status: employed Current occupational exposures/hazards: No Cognitive needs: No Hearing needs: No Vision needs: Yes (glasses) Review of Systems Const All systems reviewed & are unremarkable except as noted in HPI and below Physical Exam Vital Signs: Last Vital Signs Pulse 63 08/01/24 12:24 BP 106/50 L 08/01/24 12:24 Oxygen Delivery Method Room Air 08/01/24 12:24 Oxygen Flow Rate 96 08/01/24 12:24 BMI result Body Mass Index 28.7 Const General: healthy appearing and no acute distress Nutritional Appearance: overweight Orientation/consciousness: patient oriented x3 Limitations: no limitations HEENT Head: Yes normal to inspection Ears: hearing grossly normal bilaterally Eyes Sclerae: sclerae normal Pupils: Equal, round and reactive pupils present Neck Neck: Yes normal visual inspection Chest Chest palpation & inspection: normal inspection of the chest Resp Effort & Inspection: normal respiratory effort Auscultation: clear to auscultation bilaterally Cardio Palpation: normal PMI Rate: regular rate Rhythm: regular rhythm Heart sounds: S1 normal heart sound present, S2 normal heart sound present and no murmurs GI Palpation (GI): Soft to palpation, nontender and No hepatosplenomegaly present Auscultation: normal bowel sounds Rectal Exam - Male: Yes deferred Skin General skin exam: no rashes or lesions noted Neuro General: patient oriented x3, gait normal and moves all extremities Cranial nerves: Yes Equal, round and reactive pupils present Psych Appearance: grossly normal Mental Status: mental status grossly normal Assessment & Plan Assessment & Plan (1) Pate's esophagus determined by biopsy: Comment: 2018 EGD metaplasia but no dysplasia December 2020 Code(s): K22.70 - Pate's esophagus without dysplasia Category: Medical (2) Esophageal spasm: Code(s): K22.4 - Dyskinesia of esophagus Category: Medical (3) WEINSTEIN (nonalcoholic steatohepatitis): Comment: 09/2018 normal LFT's, ferritin NML 221, Neg Hep A,B, C, neg autoimmune work up, AFP 2.0, Fibrosis score F0 US 05/2018 heptic steatosis US of abd IMPRESSION: 1. Hepatic steatosis without any focal lesion. The tail of the pancreas and proximal abdominal aorta are suboptimally visualized. 2. The gallbladder is contracted. 3. Extrarenal kidney pelvis versus mild hydronephrosis left kidney. 4. Small splenule. Code(s): K75.81 - Nonalcoholic steatohepatitis (WEINSTEIN) Category: Medical (4) GERD (gastroesophageal reflux disease): Code(s): K21.9 - Gastro-esophageal reflux disease without esophagitis Category: Medical (5) Tubular adenoma of colon: Comment: 01/04 Three small to medium sized polyps removed during colonoscopy Moderate diverticulosis seen in the left colon Moderate hemorrhoids on retroflexed exam. Repeat Colon in 3 yrs. 12/2023 no polyps were detected on follow-up colonoscopy. Repeat Colonoscopy in 3 years due to a hx of adenomatous colon polyps and sub- optimal prep in the cecum. Code(s): D12.6 - Benign neoplasm of colon, unspecified Category: Medical (6) Dysphagia, pharyngoesophageal phase: Code(s): R13.14 - Dysphagia, pharyngoesophageal phase Category: Medical Plan 54 YM for fu of GERD, Barretts esophagus, WEINSTEIN and colon polyps Heartburn is well controlled with medication. Has less alcohol in recent years than in the past. Wt gain since he was off the testosterone Occasional constipation. Quitted smoking 10 yrs ago Uses Marijuana for RLS On chronic anticoagulation for 2 DVTs in left upper leg. 12/2020 EGD AND COLON SHOWED: ESOPHAGUS:? GE junction at 40 cms.? Two 1 cms tongues of Pate's as noted on previous EGD - biopsies were obtained. STOMACH: A few 5-10 mm benign appearing polyps in the gastric fundus and body - biopsied. Mild gastric erythema - biopsies were obtained. Colonoscopy Findings:? Three small to medium sized polyps removed Moderate diverticulosis seen in the left colon Moderate hemorrhoids on retroflexed exam. Plan:? Repeat EGD and Colonoscopy interval based on path results - in 3 years if polyps are adenomatous. 07/21/23 GERD symptoms well controlled with Lansoprazole. Did not need to use the carafate. Takes vitamin-D 2000 units daily for vitamin-D deficiency. Difficulty sleeping due to restless leg syndrome and feels tired during the day. Uses CPAP for sleep apnea. 12/19/23 EGD (FU of Pate's) and colonoscopy (FU of polyps) - were performed 12/29/23 EGD and colon results reviewed - repeat EGD (FU of Pate's) and colon (FU of polyps) in 3 years Takes Lansoprazole in the am and takes a 2nd dose later in the evening if he has symptoms. 08/01/24 Has lost wt since RLS was making him binge eat and is not doing that any more. Mouth gets dry due to oxybutinin and is difficult to swallow - of note barium swallow was normal in the past. FU in 8 months Orders: Orders Liver Fibrosis Pnl Today K75.81 - Nonalcoholic steatohepatitis (WEINSTEIN) Liver Panel Today K75.81 - Nonalcoholic steatohepatitis (WEINSTEIN) Medications: Refilled lansoprazole 30 mg PO BID 180 caps 2RF 90 days K21.9 - Gastro-esophageal reflux disease without esophagitis Coding Level of Care Code Est Pt Level 4 (59107) Diagnoses Pate's esophagus determined by biopsy K22.70 Esophageal spasm K22.4 WEINSTEIN (nonalcoholic steatohepatitis) K75.81 GERD (gastroesophageal reflux disease) K21.9 Tubular adenoma of colon D12.6 Dysphagia, pharyngoesophageal phase R13.14 Time Spent (min) 21
[2024-08-01 12:24] VITALS: BP 106/50; PULSE 63; BMI 28.7
--- OUTSIDE RECORDS SUMMARY | 2024-08-01 13:59 | XMS_ITS | Clinical Summary ---
Author Organization [address] Address [address] [place] [phone] Care Team Providers Care Travel Administrator Name Role Phone Obtain, Unable To Primary [...] legs syndrome) 04/05/2019 Deep vein thrombosis (DVT) o f proximal lower extremity (HC Code) 04/05/2019 Erectile dysfunction 04/05/2019 Gastroesophageal reflux disease [...] 50 04/05/2019 3:38 PM EST Temperature 36.3 C (97.3 F) 04/05/2019 3:38 PM EST Respiratory Rate 16 04/05/2019 3:38 PM EST [...] age to complete this topic Care Teams Travel Administrator Relationship Specialty Start Date End Date Obtain, Unable To PCP - General 03/27/19
== END 2024-08-01 12:53 | disposition home or self-care (01) ==
LOC: HO.HGI 12:03
PROVIDERS: PCP Internal Medicine; Visit Provider Internal Medicine Gastroenterology
DX: K22.70 Barrett's esophagus without dysplasia (principal); K22.4 Dyskinesia of esophagus; K75.81 Nonalcoholic steatohepatitis (NASH); K21.9 Gastro-esophageal reflux disease without esophagitis; D12.6 Benign neoplasm of colon, unspecified; R13.14 Dysphagia, pharyngoesophageal phase
CPT/HCPCS: 99214

== ENCOUNTER 2024-08-29 15:49 | Outpatient (REF) | payer BC, SELFPAY ==
--- OUTSIDE RECORDS SUMMARY | 2024-08-29 15:51 | XMS_ITS | Clinical Summary ---
Author Organization [address] Address [address] [place] [phone] Care Team Providers Care Station Inspector Name Role Phone Obtain, Unable To [...] age to complete this topic Care Teams Station Inspector Relationship Specialty Start Date End Date Obtain, Unable To PCP - General 03/27/19
--- OUTSIDE RECORDS SUMMARY | 2024-08-29 15:52 | XMS_ITS | Patient Health Record ---
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 Operator Name Role Phone Nickolas Aguirre Primary Care Provider Lynda Torres Unavailable [phone] Allergies Allergen (clinical drug ingredient) Drug/Non Drug Allergy documented on EMR Reaction Allergy Type Onset Date Status amoxicillin Amoxicillin rash Drug Allergy Act karen Penicillin rash Drug Allergy Active Reason For Referral No Information Medications Medication SIG (Take, Route, Fr equency, Duration) Notes Start Date End Date Status rOPINIRole HCl 0.5 MG 4 Orally in the ev ening; Duration: 90 days 07/08/2016 Active PriLOSEC 20 MG 2 capsules Orally Once a day Active Gabapentin 300 MG 1 capsule Orally 1 a t bedtime; Duration: 30 day(s) 05/12/2016 Active Problems Problem Type SNOMED Code ICD Code Onset Dates Problem Status W/U Status Risk Notes Problem Iron deficiency (96845427) Iron deficiency (E61.1) Active confirmed Problem Obstructive sleep apnea (00395536) Obstructive sleep apnea (G47.33) Active confirmed Reviewed maintenance of equipment; His JUAN CARLOS was severe and likely secondary to his facial structure. Problem Hypersomnia (90823892) Hypersomnia (G47.10) Active confirmed Problem Delayed sleep phase syndrome (38995664) Delayed sleep phase syndrome (G47.21) Active confirmed Encouraged him to avoid light/screen exposure after 9 pm; exploit light exposure in the morning. Helitoz would be an option but it is very expensive and not covered since he is sighted. He self pays for medical care and doesn't want to try it. Problem Restless legs (78831683) Restless legs (G25.81) Active confirmed Plan Of Treatment Pending Test Test Name Order Date FERRITIN 08/14/2015 Medical (General) History Medical History History ICD Code JUAN CARLOS RLS Delayed Sleep Phase Syndrome GERD
[2024-08-29 17:37] LABS: Alanine Aminotransferase 43 U/L (0-40); Albumin Level 5.1 g/dL (3.5-5.0); Alkaline Phosphatase 68 U/L (39-117); Aspartate Amino Transferase 36 U/L (5-37); Total Protein 7.7 g/dL (6.5-8.0)
[2024-09-07 01:43] LABS: FIB-ALT 30 U/L (9-46); FIB-Alpha-2-Macroglobulin 143 mg/dL (106-279); FIB-Apolipoprotein A1 225 mg/dL (94-176); FIB-GGT 25 U/L (3-95); FIB-Haptoglobin 142 mg/dL (43-212); FIB-Total Bilirubin 0.5 mg/dL (0.2-1.2); Liver Fibrosis Score 0.05; Liver Fibrosis Stage F0; Nec Inflam Act Grade A0; Nec Inflam Act Score 0.11
== END 2024-08-29 15:50 | disposition home or self-care (01) ==
LOC: HO.LAB 15:49
PROVIDERS: Absent Provider Internal Medicine Gastroenterology; PCP Internal Medicine; Visit Provider Internal Medicine
DX: K75.81 Nonalcoholic steatohepatitis (NASH) (principal)
CPT/HCPCS: 36415; 80076; 81596; 84403

== ENCOUNTER 2024-11-06 11:36 | Outpatient (AMB) | payer BC, SELFPAY ==
--- NOTE | 2024-11-06 11:40 | MHC.PC.OV ---
Vital Signs 11/06/24 11:41 Height 5 ft 10 in Weight 208 lb BMI 29.8 BP 118/68 Blood Pressure Location Lt brachial Position Sitting Pulse 67 Pulse Source Pulse Oximeter Pulse Oximetry (%) 98 Oxygen Delivery Method Room Air Intake Visit Reasons: annual exam Allergies Penicillins (PENICILLINS) Allergy (Intermediate, Verified 11/06/24 11:41) HIVES Medication List - Last Reconciled 11/06/24 by Waylon Pavon MD alprostadil 2.5 mcg intra-cavernosal 3XW PRN [BIPAP heated humidified air As directed] buprenorphine-naloxone 2-0.5 mg (Suboxone) takes 0.25 mg buccally daily; place 1 strip/tab under (each) side of tongue Patient take a part of the film, so not taking whole dose of 2mg. cholecalciferol (vitamin D3) 125 mcg PO DAILY cyanocobalamin (vitamin B-12) 1,000 mcg PO DAILY dipyridamole 50 mg PO .QD [Fish Oil ] fluticasone propionate 50 mcg/actuation (Flonase Allergy Relief) 2 sprays intranasal DAILY ipratropium bromide intranasal lansoprazole 30 mg PO .QD lemborexant (Dayvigo) 10 mg PO BEDTIME magnesium citrate 100 mg PO BID phenylephrine HCl 30 mg IM Q10M PRN ruxolitinib 1.5% (Opzelura) 1 appl topical BID testosterone 10 mg/0.5 gram /actuation 1 pump transdermal QAM Tobacco use date assessed: 11/06/24 Dental Screening Dental Screen Date: 11/06/24 Did you have a dental visit in the last 12 months?: Yes Did you have a dental problem in the last 6 months where you did not have access to dental care?: No Was dental information given to patient?: Patient has dentist [facility] Medical History (Updated 11/06/24 @ 12:11 by Waylon Pavon MD) Dysphagia, pharyngoesophageal phase Difficulty sleeping Physical exam (~03/16/21) DVT (deep venous thrombosis) Impaired glucose tolerance Peptic ulcer disease Hypercholesterolemia Hypogonadism Generalized anxiety disorder Marijuana use Erectile dysfunction Obesity (BMI 30-39.9) Insomnia GERD (gastroesophageal reflux disease) Restless leg syndrome Obstructive sleep apnea Surgical History Incarcerated umbilical hernia (03/01/24) Hx of tooth extraction History of colonoscopy Hx of endoscopy Family History Father Diabetes Heart attack Mother Thyroid condition Paternal Uncle Colon cancer Family/Other Family history of multiple sclerosis Other GERD (gastroesophageal reflux disease) Social History (Updated 11/06/24 @ 12:05 by Waylon Pavon MD) Household Members: Spouse [facility]: [facility] Are you a primary life care planner to a significant other at home: No Do you presently have visiting nurse or other home services: No Alcohol intake: current Alcohol intake frequency: 0-2 drinks per day Alcohol type: wine Comment: 2-3 drinks of etoh a week(once aday x once- twice a month) Patient Tobacco Use Status: Former Tobacco user Tobacco use type: Cigarette Years Smoked: quit 2013 rarely marijuana e-Cigarette/Vaping Use: Never Used Second Hand Smoke Exposure: No Substance Use Type: Marijuana service: No Current occupational status: employed Current occupational exposures/hazards: No Cognitive needs: No Hearing needs: No Vision needs: Yes (glasses) Questionnaire PHQ-9 Over the last 2 weeks, how often have you been bothered by any of the following problems? 1. Little interest or pleasure in doing things: more than half the days 2. Feeling down, depressed, or hopeless: several days 3. Trouble falling or staying asleep, or sleeping too much: nearly every day 4. Feeling tired or having little energy: nearly every day 5. Poor appetite or overeating: not at all 6. Feeling bad about yourself - or that you are a failure or have let yourself or your family down: not at all 7. Trouble concentrating on things, such as reading the newspaper or watching television: several days 8. Moving or speaking so slowly that other people could have noticed. Or the opposite - being so fidgety or restless that you have been moving around a lot more than usual: not at all 9. Thoughts that you would be better off or of hurting yourself in some way: not at all Total score: 10 Depression Screening Interpretation: Positive Depression Screening Done: Yes Source: Developed by Drs. Iggy Sandoval, Myrna Valencia, Mj Tripp and colleagues, with an educational teo from [email or web address]. Thrive Questionnaire Date Thrive assessed: 06/02/24 I am a: Patient What is your living situation today?: I have a steady place to live Within the past 12 months, did the food you bought not last and you didn't have the money to get more?: Never true Within the past 12 months, did you worry whether your food would run out before you got money to buy more?: Never true Do you have trouble paying for medicines?: No Do you have trouble getting transportation to medical appointments?: No Do you have trouble paying your heating and electricity bill?: No Do you have trouble taking care of your child, family member or friend?: No Do you have trouble with day-to-day activities such as bathing, preparing meals, shopping, managing finances, etc.?: No Are you currently unemployed and looking for a job?: No Are you interested in more education?: No Please select the resources that you would like help with: None Currently or been in a relationship where the following occur: No concerns reported THRIVE Score: 0 AUDIT C Alcohol Use Questionnaire (AUDIT-C) 1. How often do you have a drink containing alcohol?: 4 or more times a week 2. How many drinks containing alcohol do you have on a typical day when you are drinking?: 1 or 2 3. How often do you have six or more drinks on one occasion?: Never Total Score: 4 DARRELL-7 AMB Questionnaire DARRELL-7 Date DARRELL - 7 assessed: 11/06/24 Feeling nervous, anxious, or on edge: 2 = More than half the days Not being able to stop or control worryin = Several days Worrying too much about different things: 1 = Several days Trouble relaxin = Several days Being so restless that it is hard to sit still: 0 = Not at all Becoming easily annoyed or irritable: 1 = Several days Feeling afraid as if something awful might happen: 0 = Not at all Total DARRELL-7 score (0-4 normal; 5-9 mild; 10-14 moderate; 15-21 severe): 6 Source: Developed by Drs. Iggy Sandoval, Myrna Valencia, Mj Tripp and colleagues, with an educational teo from [employer] DARRELL-7 Assessment Billing DARRELL-7 Assessment Tool: DARRELL-7 Assessment 86613 Review of Systems Const Denies poor appetite and Denies weakness Eyes Denies no additional complaints ENT Reports Normal hearing present, Denies dizziness, Denies nasal congestion, Denies tinnitus and Denies sore throat Card Denies chest pain, Denies syncope, Denies rapid heart rate and Denies dyspnea Resp Denies cough and Denies dyspnea GI Denies change in stool character, Reports constipation, Denies diarrhea, Denies nausea and Denies vomiting Denies dysuria and Denies urinary frequency Neuro Reports Normal hearing present, Denies confusion, Denies dizziness, Denies syncope and Denies weakness Psych Denies confusion Physical exam (Primary Care) Vital Signs: Last Vital Signs Pulse 67 11/06/24 11:41 BP 118/68 11/06/24 11:41 Pulse Ox 98 11/06/24 11:41 Oxygen Delivery Method Room Air 11/06/24 11:41 BMI result Body Mass Index 29.8 Tobacco/Smoking Status: Tobacco use Status Tobacco use date assessed 11/06/24 11/06/24 11:42 Patient Tobacco Use Status Former Tobacco user 11/06/24 12:05 Tobacco use type Cigarette 11/06/24 12:05 e-Cigarette/Vaping Use Never Used 11/06/24 12:05 PHQ-9: PHQ-9 Score PHQ-9: Total score 10 11/06/24 11:58 Depression Screening Interpretation: Positive Thrive Assessment: Date of Thrive Assessment Date Thrive assessed 06/02/24 11/06/24 11:42 Currently or been in a relationship where the following occur: No concerns reported Const General: No confusion Orientation/consciousness: No confusion HENMT Head: Yes normocephalic Ears: external ears normal and TM's normal bilaterally Face and sinus: Yes normal facial exam Mouth: moist mucous membranes Throat: Yes tonsils normal Eyes Conjunctivae: conjunctivae normal Pupils: Equal, round and reactive pupils present and Pupil accommodation reflex normal Direct Ophthalmoscopy: normal light reflex Neck Neck: No lymphadenopathy Thyroid: Thyroid normal Chest Chest palpation & inspection: normal inspection of the chest Resp Effort & Inspection: normal respiratory effort and no audible wheezes Auscultation: clear to auscultation bilaterally, no crackles, no wheezes and lung sounds not diminished Cardio Rate: regular rate Rhythm: regular rhythm Peripheral pulses: radial pulses present and dorsalis pedis present GI Other: guaiac negative prostate N Palpation (GI): no masses Auscultation: normal bowel sounds and normoactive bowel sounds Male General Exam: Yes normal external exam Skin General skin exam: no rashes or lesions noted Rashes: no rashes Neuro General: No confusion Cranial nerves: Yes Equal, round and reactive pupils present and Yes Normal hearing present Cognition (Neuro): normal cognition Gait exam (Neuro): Normal gait present Motor exam (neuro): 5/5 motor strength present throughout Deep tendon reflexes (DTR's): Right brachioradialis reflex intensity grade: 2+, Left brachioradialis reflex intensity grade: 2+, Right patellar reflex intensity grade: 2+ and Left patellar reflex intensity grade: 2+ Extrem General: No edema Coding Level of Care Code Est Pt Prev Care 40-64y(51070) Diagnoses Annual physical exam Z00.00 Insomnia G47.00 Obstructive sleep apnea G47.33 Pate's esophagus determined by biopsy K22.70 Obesity (BMI 30-39.9) E66.9 Low testosterone R79.89 Impaired glucose tolerance R73.02 Left leg DVT I82.402 Alopecia L65.9 Additional Codes DARRELL-7 Assessment Billing - DARRELL-7 Assessment Tool: DARRELL-7 Assessment [id number] ([id number]) Assessment & Plan Assessment & Plan (1) Annual physical exam: Code(s): Z00.00 - Encounter for general adult medical examination without abnormal findings Category: Medical Plan: Patient is advised to eat healthy, keep well hydrated, keep active and have adequate sleep. (2) Insomnia: Code(s): G47.00 - Insomnia, unspecified Category: Medical Plan: Patient on dayvigo (3) Obstructive sleep apnea: Code(s): G47.33 - Obstructive sleep apnea (adult) (pediatric) Category: Medical Plan: Continue to follow-up with Neurology patient has obstructive sleep apnea uses CPAP more than 4 hours a night and benefits from this. (4) Pate's esophagus determined by biopsy: Comment: 2019 EGD metaplasia but no dysplasia December 2020 Code(s): K22.70 - Pate's esophagus without dysplasia Category: Medical Plan: Avoid the foods that causes that usually spicy foods, tomato products, juices, coffee, soda and foods that your sensitive to. After eating do not lie down, allow 3-4 hours before in lie down. And keep the head of bed above 30 degrees to avoid the acid from going up. On lansoprazole (5) Obesity (BMI 30-39.9): Code(s): E66.9 - Obesity, unspecified Category: Medical Plan: Diet and exercise (6) Low testosterone: Code(s): R79.89 - Other specified abnormal findings of blood chemistry Category: Medical Plan: Patient follows up with urology (7) Impaired glucose tolerance: Code(s): R73.02 - Impaired glucose tolerance (oral) Category: Medical Plan: Decrease the amount of carbohydrate intake, pasta, bread, rice and potatoes are all sugar and that is aside from all the sweet stuff, remember that fruits are good but they are Sweet also. (8) Left leg DVT: Comment: History of hormone intake January 2019, May 2019 Code(s): I82.402 - Acute embolism and thrombosis of unspecified deep veins of left lower extremity Category: Medical (9) Alopecia: Code(s): L65.9 - Nonscarring hair loss, unspecified Category: Medical Plan History of Present Illness The patient is a 54-year-old male presenting with a wellness check and management of chronic conditions. He has a history of obstructive sleep apnea, managed with CPAP therapy, providing more than four hours of use per night with noted benefits. The patient also reports a history of gastroesophageal reflux disease (GERD), managed with Lansoprazole once daily, and insomnia, for which he is taking a new hypnotic medication, DaVigo. The patient has generalized anxiety disorder and hypercholesterolemia, with the last cholesterol test showing an LDL of 411 mg/dL in December 2023. He has a history of a left leg deep vein thrombosis (DVT) in 2018, previously managed with Xarelto, now replaced by Depritamol. Additionally, he has a history of tubular adenoma of the colon, with the last colonoscopy performed in December 2023, and Pate's esophagus, for which he follows up with gastroenterology. The patient underwent surgery for an umbilical hernia in February 2024 and has restless legs syndrome, which has improved, reducing nighttime overeating. He reports elevated liver function tests, with mild elevation noted in the last liver function test. The patient also has vitiligo and follows up with dermatology for potential hair loss and vitiligo management. Health Maintenance - Vaccination: Discussed shingles vaccine, recommended due to its effectiveness in preventing shingles. - Screening: Colonoscopy last performed in December 2023 for tubular adenoma. - Lifestyle: Advised on diet and exercise, emphasizing the importance of green leafy vegetables and regular physical activity. Social History - Substance Use: Rare alcohol consumption, no tobacco use, occasional marijuana smoking, prefers edibles due to lower risk profile. - Exercise: Engages in daily physical activity, emphasizing the importance of maintaining an active lifestyle. - Nutrition: Consumes a diet rich in natural foods, with a focus on green leafy vegetables. Review of Systems - General: Denies fever, weight loss, or fatigue. - Cardiovascular: Denies chest pain, palpitations, or syncope. - Respiratory: Denies dyspnea, cough, or wheezing. - Gastrointestinal: Reports heartburn controlled with medication, denies nausea, vomiting, or diarrhea. - Neurological: Denies dizziness, headaches, or seizures. - Musculoskeletal: Denies joint pain or swelling. - Dermatological: Reports vitiligo, denies new rashes or lesions. Physical Exam General: Cooperative, healthy appearing, comfortable, no acute distress and well developed Orientation: Patient oriented x3 Limitations: No limitations Head: Normal to inspection Ears: Hearing grossly normal bilaterally, though patient reports 's perception of mild hearing loss Nose: Normal external nose present Face and sinus: Normal facial exam Eyes: Appearance normal, both eyes and all related structures Neck: Normal visual inspection and Yes full ROM Respiratory: Normal respiratory effort and able to speak in complete sentences. Clear to auscultation bilaterally Cardiovascular: Regular rate and rhythm. Normal S1 and S2 GI: Normal to inspection. Soft to palpation and nontender Skin: No rashes or lesions noted Neuro: Patient oriented x3 Extremities: Normal to inspection Results - Labs: Last cholesterol test in December 2023 showed LDL of 411 mg/dL. - Labs: Liver function tests showed mild elevation. - Tests: Colonoscopy in December 2023 for tubular adenoma. Plan Patient was informed and verbally consented to the use of an ambient scribe for clinic note documentation during this visit. 1. Obstructive Sleep Apnea The patient continues to manage obstructive sleep apnea with CPAP therapy, using it for more than four hours per night, which has been beneficial. He is advised to continue using the CPAP machine and follow up with neurology for ongoing management. 2. Gastroesophageal Reflux Disease (Gerd) The patient is currently managing GERD with Lansoprazole once daily, which has effectively controlled his symptoms. He is advised to maintain his current medication regimen and continue dietary modifications to manage symptoms. 3. Insomnia The patient is taking DaVigo for insomnia, which has been recently prescribed. He should monitor the effectiveness of this medication and report any side effects during follow-up visits. 4. Generalized Anxiety Disorder The patient has a history of generalized anxiety disorder, which is being monitored. He is encouraged to continue any current therapeutic interventions and report any exacerbations of symptoms. 5. Hypercholesterolemia The patient's last cholesterol test showed an LDL of 411 mg/dL, indicating hypercholesterolemia. He is advised to continue dietary modifications and consider further lipid-lowering therapy if necessary. 6. Deep Vein Thrombosis (Dvt) Of The Left Leg The patient has a history of left leg DVT, previously managed with Xarelto, now replaced by Depritamol. He should continue with the current anticoagulation therapy and follow up with hematology as needed. 7. Tubular Adenoma Of The Colon The patient had a colonoscopy in December 2023 for tubular adenoma. He should continue regular surveillance colonoscopies as recommended by his bus or truck garage mechanic. 8. Umbilical Hernia The patient underwent surgery for an umbilical hernia in February 2024. He should monitor for any signs of recurrence and follow up with his surgeon if necessary. 9. Restless Legs Syndrome The patient reports improvement in restless legs syndrome, which has reduced nighttime overeating. He should continue any current management strategies and report any changes in symptoms. 10. Pate's Esophagus The patient follows up with gastroenterology for Pate's esophagus. He should continue regular surveillance and adhere to any recommended treatment plans. 11. Elevated Liver Function Tests The patient has mild elevation in liver function tests. He should continue monitoring liver function and follow up with his healthcare provider for further evaluation if necessary. 12. Vitiligo The patient has vitiligo and is following up with dermatology for management. He should adhere to any prescribed treatments and report any changes in skin condition. Discussion Notes During the visit, we discussed the management of obstructive sleep apnea with continued CPAP use and the importance of follow-up with neurology. We also reviewed the patient's GERD management with Lansoprazole and dietary modifications, and the new prescription of DaVigo for insomnia. The patient was advised on the importance of regular surveillance for Pate's esophagus and tubular adenoma, and the need for ongoing monitoring of liver function tests. Patient Instructions - Continue using CPAP machine for sleep apnea management. - Take Lansoprazole once daily for GERD and follow dietary recommendations. - Monitor the effectiveness of DaVigo for insomnia and report any side effects. - Follow up with gastroenterology for Pate's esophagus and tubular adenoma surveillance. - Maintain regular physical activity and a diet rich in green leafy vegetables. - Consider shingles vaccination for prevention. Orders: Orders Complete Blood Count Auto Diff 2 Months K21.9 - Gastro-esophageal reflux disease without esophagitis Free T4 (Free Thyroxine) Today K21.9 - Gastro-esophageal reflux disease without esophagitis Thyroid Stimulating Hormone 2 Months K21.9 - Gastro-esophageal reflux disease without esophagitis Vitamin B12 and Folate 2 Months K21.9 - Gastro-esophageal reflux disease without esophagitis Hemoglobin A1c 2 Months K21.9 - Gastro-esophageal reflux disease without esophagitis UA CC w/rflx Micro + Cult 2 Months K21.9 - Gastro-esophageal reflux disease without esophagitis, R30.0 - Dysuria Prostate Specific Antigen Scr 2 Months K21.9 - Gastro-esophageal reflux disease without esophagitis Magnesium Today L80 - Vitiligo Comprehensive Met. Panel 2 Months K21.9 - Gastro-esophageal reflux disease without esophagitis Lipid Panel 2 Months E78.00 - Pure hypercholesterolemia, unspecified, K21.9 - Gastro-esophageal reflux disease without esophagitis Referrals Dermatology Referral L65.9 - Nonscarring hair loss, unspecified, L80 - Vitiligo
[2024-11-06 11:41] VITALS: BP 118/68; PULSE 67; O2SAT 98; BMI 29.8
--- OUTSIDE RECORDS SUMMARY | 2024-11-06 14:31 | XMS_ITS | Encounter Summary ---
Author Organization [facility] and [facility] Address [address] [place] [phone] Care Team Providers Care Supervisor Transcribing Operators Name Role Phone Obtain, Unable To Primary Care Provider Unavaila ble Encounter Details Date Type Department Care Team ([facility] st Contact Info) Description 07/12/2019 Scanned Document Sleep Medicine Program at [address] [place] [phone] Korey Kingsley MD [address] [place] [phone] Social History Tobacco Use Types Packs/Day [...] on filedocumented in this encounter Care Teams Supervisor Transcribing Operators Relationship Specialty Start Date End Date Obtain, Unable To PCP - General 03/27/19 documented as of this encounter
--- OUTSIDE RECORDS SUMMARY | 2024-11-06 14:31 | XMS_ITS | Clinical Summary ---
Author Organization [address] Address [address] [place] [phone] Care Team Providers Care Detasseler Name Role Phone Obtain, Unable To Primary [...] 2 Dose Standard Series) 2020 Influenza vaccine 09/14/2024 Covid-19 vaccine series (1 - season) 2024 RSV Immunization (1 - 1-dose 75+ series) 2045 Meningococcal B Vaccine Aged Out No l onger eligible based on patient's age to complete this topic Meningococcal Vaccine Aged Out No petrona issac eligible based on patient's age to complete this topic Care Teams Detasseler Relationship Specialty Start Date End Date Obtain, Unable To PCP - General 03/27/19
--- OUTSIDE RECORDS SUMMARY | 2024-11-06 14:31 | XMS_ITS | Encounter Summary ---
Author Organization [facility] and [facility] Address [address] [place] [phone] Care Team Providers Care Park Manager Name Role Phone Obtain, Unable To Primary Care Provider Unavaila ble Encounter Details Date Type Department Care Team ([facility] st Contact Info) Description 07/12/2019 Abstract Sleep Medicine Program at [address] [place] [phone] Korey Kingsley MD [address] [place] [phone] Social History Tobacco Use Types Packs/Day [...] on filedocumented in this encounter Care Teams Park Manager Relationship Specialty Start Date End Date Obtain, Unable To PCP - General 03/27/19 documented as of this encounter
--- OUTSIDE RECORDS SUMMARY | 2024-11-06 14:31 | XMS_ITS | Encounter Summary ---
Author Organization [facility] and [facility] Address [address] [place] [phone] Care Team Providers Care President And Cmo Name Role Phone Obtain, Unable To Primary Care Provider Unavaila ble Encounter Details Date Type Department Care Team ([facility] st Contact Info) Description 07/12/2019 Scanned Document Sleep Medicine Program at [address] [place] [phone] Korey Kingsley MD [address] [place] [phone] Social History Tobacco Use Types Packs/Day [...] on filedocumented in this encounter Care Teams President And Cmo Relationship Specialty Start Date End Date Obtain, Unable To PCP - General 03/27/19 documented as of this encounter
--- OUTSIDE RECORDS SUMMARY | 2024-11-06 14:31 | XMS_ITS | Encounter Summary ---
Author Organization [facility] and [facility] Address [address] [place] [phone] Care Team Providers Care Mortuary Operations Manager Name Role Phone Obtain, Unable To Primary Care Provider Unavaila ble Encounter Details Date Type Department Care Team (Late st Contact Info) Description 11/15/2019 Scanned Document Sleep Medicine Program at [address] [place] [phone] Myrna Mcdermott MD Social History Tobacco Use [...] on filedocumented in this encounter Care Teams Mortuary Operations Manager Relationship Specialty Start Date End Date Obtain, Unable To PCP - General 03/27/19 documented as of this encounter
--- OUTSIDE RECORDS SUMMARY | 2024-11-06 14:31 | XMS_ITS | Encounter Summary ---
Author Organization [facility] and [facility] Address [address] [place] [phone] Care Team Providers Care Storeroom Keeper Name Role Phone Obtain, Unable To Primary Care Provider Unavaila ble Encounter Details Date Type Department Care Team ([facility] st Contact Info) Description 07/12/2019 Scanned Document Sleep Medicine Program at [address] [place] [phone] Korey Kingsley MD [address] [place] [phone] Social History Tobacco Use Types Packs/Day [...] on filedocumented in this encounter Care Teams Storeroom Keeper Relationship Specialty Start Date End Date Obtain, Unable To PCP - General 03/27/19 documented as of this encounter
--- OUTSIDE RECORDS SUMMARY | 2024-11-06 14:31 | XMS_ITS | Encounter Summary ---
Author Organization [facility] and [facility] Address [address] [place] [phone] Care Team Providers Care Antenna Rigger Name Role Phone Obtain, Unable To Primary Care Provider Unavaila ble Encounter Details Date Type Department Care Team ([facility] st Contact Info) Description 07/12/2019 Scanned Document Sleep Medicine Program at [address] [place] [address] Korey Kingsley MD [address] [place] [phone] Social History Tobacco Use Types Packs/Day [...] on filedocumented in this encounter Care Teams Antenna Rigger Relationship Specialty Start Date End Date Obtain, Unable To PCP - General 03/27/19 documented as of this encounter
--- OUTSIDE RECORDS SUMMARY | 2024-11-06 14:31 | XMS_ITS | Encounter Summary ---
Author Organization [facility] and [facility] Address [address] [place] [phone] Care Team Providers Care Edge Burnisher Name Role Phone Obtain, Unable To Primary Care Provider Unavaila ble Encounter Details Date Type Department Care Team ([facility] st Contact Info) Description 07/12/2019 Scanned Document Sleep Medicine Program at [address] [place] [address] Korey Kingsley MD [address] [place] [phone] Social History Tobacco Use Types Packs/Day [...] on filedocumented in this encounter Care Teams Edge Burnisher Relationship Specialty Start Date End Date Obtain, Unable To PCP - General 03/27/19 documented as of this encounter
--- OUTSIDE RECORDS SUMMARY | 2024-11-06 14:31 | XMS_ITS | Encounter Summary ---
Author Organization [facility] and [facility] Address [address] [place] [phone] Care Team Providers Care Application Release Manager Name Role Phone Obtain, Unable To Primary Care Provider Unavaila ble Encounter Details Date Type Department Care Team ([facility] st Contact Info) Description 07/12/2019 Scanned Document Sleep Medicine Program at [address] [place] [address] Korey Kingsley MD [address] [place] [phone] Social History Tobacco Use Types Packs/Day [...] on filedocumented in this encounter Care Teams Application Release Manager Relationship Specialty Start Date End Date Obtain, Unable To PCP - General 03/27/19 documented as of this encounter
--- OUTSIDE RECORDS SUMMARY | 2024-11-06 14:31 | XMS_ITS | Encounter Summary ---
Author Organization [facility] and [facility] Address [address] [place] [phone] Care Team Providers Care Outbound Telemarketing Representative Name Role Phone Obtain, Unable To Primary Care Provider Unavaila ble Encounter Details Date Type Department Care Team ([facility] st Contact Info) Description 07/12/2019 Scanned Document Sleep Medicine Program at [address] [place] [address] Korey Kingsley MD [address] [place] [phone] Social History Tobacco Use Types Packs/Day [...] on filedocumented in this encounter Care Teams Outbound Telemarketing Representative Relationship Specialty Start Date End Date Obtain, Unable To PCP - General 03/27/19 documented as of this encounter
--- OUTSIDE RECORDS SUMMARY | 2024-11-06 14:31 | XMS_ITS | Encounter Summary ---
Author Organization [facility] and [facility] Address [address] [place] [phone] Care Team Providers Care Project Estimator Name Role Phone Obtain, Unable To Primary Care Provider Unavaila ble Encounter Details Date Type Department Care Team ([facility] st Contact Info) Description 07/12/2019 Scanned Document Sleep Medicine Program at [address] [place] [address] Korey Kingsley MD [address] [place] [phone] Social History Tobacco Use Types Packs/Day [...] on filedocumented in this encounter Care Teams Project Estimator Relationship Specialty Start Date End Date Obtain, Unable To PCP - General 03/27/19 documented as of this encounter
--- OUTSIDE RECORDS SUMMARY | 2024-11-06 14:32 | XMS_ITS | Patient Health Record ---
Author Organization [facility] Address [address] [place], [place] [id number] Care Team Providers Care Sewing Machine Attachment Tester Name Role Phone Nickolas Aguirre Primary Care Provider Lynda Torres Unavailable [phone] Allergies Allergen (clinical drug ingredient) Drug/Non Drug [...] W/U Status Risk Notes Problem Iron deficiency (25246744) Iron deficiency (E61.1) Active confirmed Problem Obstructive sleep apnea (98150964) Obstructive sleep apnea (G47.33) Active confirmed Reviewed maintenance of equipment; His JUAN CARLOS was severe and likely secondary to his facial structure. Problem Hypersomnia (33191532) Hypersomnia (G47.10) Active confirmed Problem Delayed sleep phase syndrome (77663867) Delayed sleep phase syndrome (G47.21) Active confirmed Encouraged him to avoid light/screen exposure after 9 pm; exploit light exposure in the morning. Helitoz would be an option but it is very expensive and not covered since he is sighted. He self pays for medical care and doesn't want to try it. Problem Restless legs (67012160) Restless legs (G25.81) Active confirmed Plan Of Treatment Pending Test Test Name Order Date FERRITIN 08/14/2015 Medical (General) History Medical History History ICD Code JUAN CARLOS RLS Delayed Sleep Phase Syndrome GERD
--- OUTSIDE RECORDS SUMMARY | 2024-11-06 14:32 | XMS_ITS | Encounter Summary ---
Author Organization [facility] and [facility] Address [address] [place] [phone] Care Team Providers Care Dry House Worker Name Role Phone Obtain, Unable To Primary Care Provider Unavaila ble Encounter Details Date Type Department Care Team ([facility] st Contact Info) Description 07/12/2019 Scanned Document Sleep Medicine Program at [address] [place] [phone] Korey Kingsley MD [address] [place] [phone] Social History Tobacco Use Types Packs/Day [...] on filedocumented in this encounter Care Teams Dry House Worker Relationship Specialty Start Date End Date Obtain, Unable To PCP - General 03/27/19 documented as of this encounter
--- OUTSIDE RECORDS SUMMARY | 2024-11-06 14:32 | XMS_ITS | Encounter Summary ---
Author Organization [facility] and [facility] Address [address] [place] [phone] Care Team Providers Care Truck Driver Salesperson Name Role Phone Obtain, Unable To Primary Care Provider Unavaila ble Encounter Details Date Type Department Care Team ([facility] st Contact Info) Description 07/12/2019 Scanned Document Sleep Medicine Program at [address] [place] [address] Korey Kingsley MD [address] [place] [phone] Social History Tobacco Use Types Packs/Day [...] on filedocumented in this encounter Care Teams Truck Driver Salesperson Relationship Specialty Start Date End Date Obtain, Unable To PCP - General 03/27/19 documented as of this encounter
--- OUTSIDE RECORDS SUMMARY | 2024-11-06 14:32 | XMS_ITS | Encounter Summary ---
Author Organization [facility] and [facility] Address [address] [place] [phone] Care Team Providers Care Client Finance Analyst Name Role Phone Obtain, Unable To Primary Care Provider Unavaila ble Encounter Details Date Type Department Care Team ([facility] st Contact Info) Description 07/12/2019 Documentation Sleep Medicine Program at [address] [place] [address] Korey Kingsley MD [address] [place] [phone] Social History Tobacco Use Types Packs/Day [...] on filedocumented in this encounter Care Teams Client Finance Analyst Relationship Specialty Start Date End Date Obtain, Unable To PCP - General 03/27/19 documented as of this encounter
--- OUTSIDE RECORDS SUMMARY | 2024-11-06 14:32 | XMS_ITS | Encounter Summary ---
Author Organization [facility] and [facility] Address [address] [place] [phone] Care Team Providers Care Pipe Cleaner Name Role Phone Obtain, Unable To Primary Care Provider Unavaila ble Encounter Details Date Type Department Care Team ([facility] st Contact Info) Description 07/12/2019 Scanned Document Sleep Medicine Program at [address] [place] [address] Korey Kingsley MD [address] [place] [phone] Social History Tobacco Use Types Packs/Day [...] on filedocumented in this encounter Care Teams Pipe Cleaner Relationship Specialty Start Date End Date Obtain, Unable To PCP - General 03/27/19 documented as of this encounter
--- OUTSIDE RECORDS SUMMARY | 2024-11-06 14:32 | XMS_ITS | Encounter Summary ---
Author Organization [facility] and [facility] Address [address] [place] [phone] Care Team Providers Care Terrazzo Roller Name Role Phone Obtain, Unable To Primary Care Provider Unavaila ble Encounter Details Date Type Department Care Team ([facility] st Contact Info) Description 05/15/2019 Scanned Document Sleep Medicine Program at [address] [place] [address] Korey Kingsley MD [address] [place] [phone] Social History Tobacco Use Types Packs/Day [...] on filedocumented in this encounter Care Teams Terrazzo Roller Relationship Specialty Start Date End Date Obtain, Unable To PCP - General 03/27/19 documented as of this encounter
== END 2024-11-06 12:30 | disposition home or self-care (01) ==
LOC: HO.HMCH 11:37
PROVIDERS: PCP Internal Medicine; Visit Provider Internal Medicine
DX: Z00.00 Encounter for general adult medical examination without abnormal findings (principal); I82.402 Acute embolism and thrombosis of unspecified deep veins of left lower extremity; E66.9 Obesity, unspecified; Z68.29 Body mass index [BMI] 29.0-29.9, adult; G47.00 Insomnia, unspecified; G47.33 Obstructive sleep apnea (adult) (pediatric); K22.70 Barrett's esophagus without dysplasia; R79.89 Other specified abnormal findings of blood chemistry; R73.02 Impaired glucose tolerance (oral); L65.9 Nonscarring hair loss, unspecified

== ENCOUNTER → 2024-11-06 11:36 | Outpatient (BNVA) | payer BC, SELFPAY | PROVIDERS: PCP Internal Medicine; Visit Provider Internal Medicine | DX: Z00.00 Encounter for general adult medical examination without abnormal findings (principal); G47.00 Insomnia, unspecified; G47.33 Obstructive sleep apnea (adult) (pediatric); K22.70 Barrett's esophagus without dysplasia; R79.89 Other specified abnormal findings of blood chemistry; R73.02 Impaired glucose tolerance (oral); I82.402 Acute embolism and thrombosis of unspecified deep veins of left lower extremity; L65.9 Nonscarring hair loss, unspecified; E66.9 Obesity, unspecified; K21.9 Gastro-esophageal reflux disease without esophagitis; E78.00 Pure hypercholesterolemia, unspecified; G25.81 Restless legs syndrome; F41.1 Generalized anxiety disorder; L80 Vitiligo; Z99.89 Dependence on other enabling machines and devices | CPT/HCPCS: 96127 ==

== ENCOUNTER 2024-12-10 13:28 | Outpatient (REF) | payer BC, SELFPAY ==
[2024-12-10 16:04] LABS: MANUAL DIFF FLAG NO
[2024-12-10 16:17] LABS: Appearance Urine Turbid; Glucose Urine UA Negative (Negative); PH 5.5 (5.0-9.0); Specific Gravity - Urine 1.025 (1.005-1.025)
[2024-12-10 16:21] LABS: Hematocrit 44.9 % (42.0-52.0); Hemoglobin 14.9 g/dl (14.0-18.0); Imm Gran Abs Auto 0.02 X10*3/uL (0.00-0.03); Imm Gran Pct Auto 0.3 % (0.0-0.4); Lymphocytes Absolute Auto 1.8 X10*3/uL (1.2-4.9); Mean Corpuscular HGB Conc 33.2 g/dl (31.0-36.0); Mean Corpuscular Hemoglobin 31.7 pg (27.0-33.0); Mean Corpuscular Volume 95.5 fL (80.0-98.0); NRBC Abs Auto 0.000 X10*3/uL (0.0-0.012); NRBC Pct Auto 0.0 /100WBC (0.0-0.2); Platelet Count 224 X10*3/uL (160-400); Red Blood Count 4.70 X10*6/uL (4.60-5.80); White Blood Count 6.0 X10*3/uL (4.8-10.8)
[2024-12-10 16:41] LABS: Alanine Aminotransferase 24 U/L (0-40); Albumin Level 5.1 g/dL (3.5-5.0); Alkaline Phosphatase 71 U/L (39-117); Anion Gap 12 (12-20); Aspartate Amino Transferase 28 U/L (5-37); Blood Urea Nitrogen 27 mg/dL (9-16); Calcium 9.9 mg/dL (8.4-10.2); Carbon Dioxide 32 mmol/L (22-29); Chloride 102 mmol/L (96-108); Cholesterol 210 mg/dL (<200); Estimated Glomerular Filt Rate > 60; HDL Cholesterol 65 mg/dL (>40); Magnesium 2.1 mg/dL (1.6-2.6); Potassium 4.9 mmol/L (3.3-5.1); Sodium 141 mmol/L (135-145); Total Protein 7.8 g/dL (6.5-8.0); Triglycerides 105 mg/dL (<150)
[2024-12-10 16:47] LABS: Free T4 (Free Thyroxine) 1.01 ng/dL (0.71-1.85); Thyroid Stimulating Hormone 0.62 uIU/mL (0.32-4.0)
[2024-12-10 17:06] LABS: Folate 16.5 ng/mL (> or = 4.0); Vitamin B12 661 pg/mL (200-900)
--- OUTSIDE RECORDS SUMMARY | 2024-12-10 17:11 | XMS_ITS | Patient Health Record ---
Author Organization [facility] [place] Address [address] [place], [place] [phone] Care Team Providers Care Recording Engineer Name Role Phone Nickolas Aguirre Primary Care Provider Lynda Torres Unavailable [phone] Allergies Allergen (clinical drug ingredient) Drug/Non Drug Allergy documented on EMR Reaction Allergy Type Onset Date Status amoxicillin Amoxicillin rash Drug Allergy Act karen Penicillin rash Drug Allergy Active Reason For Referral No Information Medications Medication SIG (Take, Route, Frequency, Duration) Notes Start Date End Date Status rOPINIRole HCl 0.5 MG Tablet 4 Orally in the evening; Duration: 90 days 07/08/2016 Active PriLOSEC 20 MG Capsule Delayed Release 2 capsules Orally Once a day Active Gabapentin 300 MG Capsule 1 capsule Oral ly 1 at bedtime; Duration: 30 day(s) 05/12/2016 Active Social History Social History Additional Details Category Social Info Options Details Social History 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 Problem Hypersomnia (91451327) Hypersomnia (G47.10) Active confirmed Problem Delayed sleep phase syndrome (94593251) Delayed sleep phase syndrome (G47.21) Active confirmed Encouraged him to avoid light/screen exposure after 9 pm; exploit light exposure in the morning. Helitoz would be an option but it is very expensive and not covered since he is sighted. He self pays for medical care and doesn't want to try it. Problem Restless legs (02006723) Restless legs (G25.81) Active confirmed Plan Of Treatment Pending Test Test Name Order Date FERRITIN 08/14/2015 Medical (General) History Medical History History ICD Code JUAN CARLOS RLS Delayed Sleep Phase Syndrome GERD
== END 2024-12-10 13:29 | disposition home or self-care (01) ==
LOC: HO.HMGCLDS 13:28
PROVIDERS: Absent Provider Internal Medicine; PCP Internal Medicine; Visit Provider Internal Medicine
DX: Z12.5 Encounter for screening for malignant neoplasm of prostate (principal); Z13.1 Encounter for screening for diabetes mellitus; K21.9 Gastro-esophageal reflux disease without esophagitis; L80 Vitiligo; R30.0 Dysuria; E29.1 Testicular hypofunction
CPT/HCPCS: 36415; 80053; 80061; 81003; 82607; 82746; 83036; 83735; 84153; 84403; 84439; 84443; 85025